=== PATIENT | male | born 1985 | race Caucasian/White ===

== ENCOUNTER 2018-02-01 14:00 | Inpatient (IN) ==
[2018-02-01] MEDS ORDERED: levETIRAcetam 1000mg/100mL Inj 100 ML IV.SIG ONE (14:03)
[2018-02-01] MEDS ORDERED: Sod Chloride 0.9% Inj 1,000 ML IV.SIG ONE (14:03)
--- NOTE | 2018-02-01 14:21 | XR ---
EXAM DATE: 02/01/2018 2:18 PM EDT AGE/SEX: 32 years / Male INDICATIONS: Seizure. CLINICAL DATA: This is the patient's initial encounter. Patient reports that signs and symptoms have been present for 1 day and indicates a pain score of Nonresponsive. MEDICAL/SURGICAL HISTORY: Seizures. None. COMPARISON: No prior exams available for comparison. FINDINGS: Study is blurred by motion artifact. A single AP view of the chest demonstrates the lungs to be symme trically aerated without evidence of mass, infiltrate or effusion. The cardiomediastinal contours ar e unremarkable. Osseous structures are intact. CONCLUSION: 1. Exam degraded by motion artifact. 2. No gross abnormality. Electronically signed by: Hugo Love MD 02/01/2018 2:20 PM EDT
[2018-02-01] MEDS ORDERED: Etomidate Inj 40 MG/20 ML Vial IV.PUSH ONE (14:31)
[2018-02-01] MEDS ORDERED: Succinylcholine Inj 200 MG/10 ML Vial ONE (14:31)
[2018-02-01] MEDS ORDERED: Propofol Inj 500 MG/50 ML Vial ONE (14:32)
[2018-02-01 14:35] LABS: Baso % (Auto) 0.3 % (0.0-2.0); Eos # (Auto) 0.1 th/mm3 (0.0-0.4); Eos % (Auto) 1.3 % (0.0-4.0); Hematocrit 41.2 % (39.0-51.0); Hemoglobin 13.2 gm/dL (13.0-17.0); Lymph # (Auto) 2.6 th/mm3 (1.0-4.8); Lymph % (Auto) 30.8 % (9.0-44.0); Mean Corpuscular HGB Conc 32.1 % (32.0-36.0); Mean Corpuscular Hemoglobin 29.2 pg (27.0-34.0); Mean Corpuscular Volume 90.8 fL (80.0-100.0); Mean Platelet Volume 7.8 fL (7.0-11.0); Mono # (Auto) 0.5 th/mm3 (0.0-0.9); Mono % (Auto) 6.3 % (0.0-8.0); Neut # (Auto) 5.3 th/mm3 (1.8-7.7); Neut % (Auto) 61.3 % (16.0-70.0); Platelet Count 293 th/mm3 (150-450); Red Blood Count 4.54 mil/mm3 (4.50-5.90); Red Cell Distribution Width 13.4 % (11.6-17.2); White Blood Count 8.6 th/mm3 (4.0-11.0)
[2018-02-01] MEDS ORDERED: Acetaminophen 325 MG Tablet PO PRN (14:46)
[2018-02-01] MEDS ORDERED: Bisacodyl 10 MG Supp RECTAL PRN (14:46)
--- NOTE | 2018-02-01 14:54 | ED ---
HPI General Chief complaint: Seizure Stated complaint: Poss seizure Time Seen by Provider: 02/01/18 14:02 Source: family, EMS, RN notes reviewed and old records reviewed History of Present Illness HPI narrative: 32yM presenting with seizure. The patient reportedly has a history of seizures, had 2 seizures while he was at work today. EMS gave the patient 2 mg of versed IV x 2 doses but he was still non-verbal, altered, with subtle shaking of all extremities on arrival. The patient required multiple additional doses of IV ativan and was intubated for airway protection; I was unable to elicit any information from him. The patient's sister says that the patient is currently taking Klonopin for seizures, is frequently non-compliant with meds, and was admitted within the past month to [facility] in [place] for seizures. Patient's last name is misspelled in the chart; his name is Jerman Beal, ; previous records show that he was on Dilantin in 2017. Related Data Allergies Allergy/AdvReac Type Severity Reaction Status Date / Time No Allergy Information Allergy Unverified 02/01/18 14:03 Available Review of Systems ROS Unobtainable ROS Unobtainable: unobtainable due to mental status PMFSH History History Provided By: Family Member and Medical Record Medical History Medical History Epilepsia (Acute) TBI (traumatic brain injury) (Acute) Social History Social History Substance History: Unable to Obtain Smoking Status: Cognitive impairment How Often Do You Have a Drink Containing Alcohol: Unable to Obtain Recent Out of Country Travel within the Last 8 Weeks: No Exam Narrative Exam Narrative: Actively seizing on arrival Pupils 2 mm bilaterally, left-sided gaze preference Tachy, regular Snoring respirations Abdomen soft and non-tender No extremity trauma GCS 10 ([id number]), non-verbal, does not follow commands Procedures Intubation Time Out Performed: Yes Sedative: etomidate Mg Given: 20 Paralytic: succinylcholine Mg Given: 100 Laryngoscope: other (C MAC) ET Tube Size: 8 ET Tube Uncuffed: Yes Tube Secured Depth (cm): 24 Tube Secured Location: teeth Tube Placement Confirmation: visualized tube passing through cords, equal breath sounds bilaterally, no breath sounds over epigastrium and confirmation by capnometry Patient Tolerated Procedure: well and no complications Course Initial Documented Vital Signs Temperature 99.5 F 02/01/18 14:05 Pulse Rate 105 H 02/01/18 14:05 Respiratory Rate 16 02/01/18 14:05 Blood Pressure 133/60 02/01/18 14:05 Pulse Oximetry 99 02/01/18 14:05 Last Documented Vital Signs Temperature 99.5 F 02/01/18 14:05 Pulse Rate 100 H 02/01/18 15:05 Respiratory Rate 21 02/01/18 15:05 Blood Pressure 186/91 H 02/01/18 15:05 Pulse Oximetry 100 02/01/18 15:05 Critical Care Time Critical Care Time: Yes Total Critical Care Time: 41 Attestation: Total critical care time 41 minutes. This includes examining and stabilizing the patient, gathering a history from a source other than the patient (i.e., chart review, EMS, family), formulating a differential diagnosis , ordering and interpreting laboratory tests and EKG, ordering and interpreting radiology tests, discussing the patient's care with other providers (neurology, critical care), management of refractory seizures, management of ventilator and sedation, re-evaluation at frequent intervals, and documentation. Amount of time is separate from teaching, counseling the patient and/or family, and exclusive of procedures. Medical Decision Making MDM Narrative Medical decision making narrative: Assessment: 32yM presenting with status epilepticus Plan: Patient required intubation for airway protection and acute hypoxic respiratory failure secondary to status epilepticus Propofol for sedation, also given 1 gm keppra IV CTH Labs, including AED levels Case discussed with Dr. John of neurology and Dr. Guan of [facility] [place] Medical Screen Exam Complete: Yes Emergency Medical Condition: Yes Differential Diagnosis Differential Diagnosis: Differential diagnosis includes, but is not limited to: status epilepticus, withdrawal, ICH, electrolyte abnormality, dehydration, rhabdomyolysis Lab Data Lab results reviewed: Yes I reviewed the patient's lab results. Result diagrams: 02/01/18 14:15 02/01/18 14:15 Lab Results 02/01/18 02/01/18 Range/Units 14:15 14:15 WBC 8.6 (4.0-11.0) th/mm3 RBC 4.54 (4.50-5.90) mil/mm3 Hgb 13.2 (13.0-17.0) gm/dL Hct 41.2 (39.0-51.0) % MCV 90.8 (80.0-100.0) fL MCH 29.2 (27.0-34.0) pg MCHC 32.1 (32.0-36.0) % RDW 13.4 (11.6-17.2) % Plt Count 293 (150-450) th/mm3 MPV 7.8 (7.0-11.0) fL Neut % (Auto) 61.3 (16.0-70.0) % Lymph % (Auto) 30.8 (9.0-44.0) % [place] % (Auto) 6.3 (0.0-8.0) % Eos % (Auto) 1.3 (0.0-4.0) % Baso % (Auto) 0.3 (0.0-2.0) % Neut # (Auto) 5.3 (1.8-7.7) th/mm3 Lymph # (Auto) 2.6 (1.0-4.8) th/mm3 [place] # (Auto) 0.5 (0.0-0.9) th/mm3 Eos # (Auto) 0.1 (0.0-0.4) th/mm3 Baso # (Auto) 0.0 (0.0-0.2) th/mm3 WBC Differential . Differential Comment Auto diff final Sodium 143 (136-145) meq/L Potassium 3.6 (3.5-5.1) meq/L Chloride 107 (98-107) meq/L Carbon Dioxide 17.0 L (21.0-32.0) meq/L Anion Gap 19 H (5-15) meq/L BUN 12 (7-18) mg/dL Creatinine 1.39 H (0.60-1.30) mg/dL Estimated GFR 59 L (>89) mL/min Random Glucose 92 (74-106) mg/dL Calcium 8.6 (8.5-10.1) mg/dL AST 9 L (15-37) U/L ALT 14 (12-78) U/L Albumin 3.7 (3.4-5.0) g/dL Imaging Data Radiologist's impression: Chest X-Ray 02/01/18 14:03 CONCLUSION: 1. Exam degraded by motion artifact. 2. No gross abnormality. Chest X-Ray 02/01/18 14:38 CONCLUSION: Clear lungs. ECG Data Attestation: I personally reviewed and interpreted this ECG as follows: Interpretation: Rate: 97 BPM Rhythm: Sinus Crozier: Normal Intervals: Normal intervals, no blocks, QTc 395 ms Q waves: None T waves: Upright, no inversions ST segments: No elevations or depressions Impression: Non-specific EKG, no previous EKG available for comparison. Discharge Plan Discharge Disposition Patient Disposition: 30 Still Patient Discharge Condition Condition: Critical Discharge Details Diagnosis: Status epilepticus, Acute respiratory failure Physicians Team ED Provider: Claudia Marrero Primary Care Provider: UNKNOWN, Discharge Interventions Interventions: Vital Signs Last Done: 02/01/18 14:27 Status ED Status: With Doctor
[2018-02-01 14:57] LABS: Alanine Aminotransferase 14 U/L (12-78); Albumin 3.7 g/dL (3.4-5.0); Anion Gap 19 meq/L (5-15); Aspartate Aminotransferase 9 U/L (15-37); Blood Urea Nitrogen 12 mg/dL (7-18); Calcium 8.6 mg/dL (8.5-10.1); Chloride 107 meq/L (98-107); Glomerular Filtration Rate 59 mL/min (>89); Glucose,Random 92 mg/dL (74-106); Potassium 3.6 meq/L (3.5-5.1); Sodium 143 meq/L (136-145)
[2018-02-01 14:59] LABS: Alkaline Phosphatase 81 U/L (45-117); Total Protein 7.2 g/dL (6.4-8.2)
[2018-02-01] MEDS ORDERED: Midazolam Inj 5 MG/ML 1 ML Vial ONE (15:02)
[2018-02-01] MEDS ORDERED: Midazolam 50 MG/50 ML Inj 50 MG/50 ML BAG IV.CONT ONE (15:07)
--- NOTE | 2018-02-01 15:18 | XR ---
EXAM DATE: 02/01/2018 3:07 PM EDT AGE/SEX: 32 years / Male INDICATIONS: Respiratory failure. Possible seizure. CLINICAL DATA: This is the patient's initial encounter. Patient reports that signs and symptoms have been present for 1 day and indicates a pain score of Nonresponsive. MEDICAL/SURGICAL HISTORY: . Seizures None. [place] [facility] [place]. . FINDINGS: A single AP view of the chest demonstrates an endotracheal tube with the tip 2 cm from the sil. Na sogastric tube is coiled in the stomach. Lungs are clear. No effusions. Heart is normal in size. Bony structures are unremarkable. CONCLUSION: Clear lungs. Electronically signed by: Hugo Love MD 02/01/2018 3:17 PM EDT
[2018-02-01] MEDS ORDERED: Succinylcholine Inj 100 MG/5 ML Syringe IV.PUSH ONE (15:22)
[2018-02-01] MEDS ORDERED: Etomidate Inj 20 MG/10 ML Ampul IV.PUSH ONE (15:22)
--- NOTE | 2018-02-01 15:23 | P.HPCC ---
History of Present Illness Primary Care Physician: UNKNOWN Chief Complaint: Status epilepticus History of Present Illness: Patient is a 32-year-old male with seizure disorder noncompliant to medication who presented to emergency department in status epilepticus. Apparently he had 2 seizures at work, EMS was called they gave a total of 4 mg IV Versed with no response. Presented to the ED altered still seizing. Received total 4 mg IV Ativan in the emergency department without response. Patient was intubated for airway protection and status epilepticus. Postintubation was loaded with Keppra and critical care medicine was consulted. Patient was also placed on propofol infusion. He has a history of noncompliance previously had been on Dilantin currently only on Klonopin per history from his sister ED obtained. I am also told that patient was admitted to a [facility] for approximately 1 week and this was a week ago for same diagnosis of uncontrolled seizures I evaluated the patient in the emergency department. He continues to have tremulous shaking movements of the lower extremities somewhat purposefully with the right upper extremity. I bolused 50 mg IV propofol followed by 5 mg of IV Versed for control of seizures and ventilator synchrony. I have ordered loading dose of 1 g IV fosphenytoin and then will continue 100 mg IV every 8 hours. Neurology consult had been requested as well as stat EEG. Also will get a CT of the head with no contrast. Urine drug screen is pending at this time - Diagnosis (1) Status epilepticus (2) Acute respiratory failure (3) JOAQUIN (acute kidney injury) (4) Seizure disorder Review of Systems unobtainable due to endotracheal tube, unobtainable due to mental condition PMFSH - History History Provided By: Family Member, Medical Record - Medical / Surgical Hx Neg / Unobtainable Medical Problems Denied: Unable to Obtain - Medical History Medical History: Medical History (Last Reviewed 02/01/18 @ 14:49 by Claudia Marrero DO) Epilepsia TBI (traumatic brain injury) - Tobacco History Smoking Status: Cognitive impairment - Alcohol History How Often Do You Have a Drink Containing Alcohol: Unable to Obtain - Substance Use History Substance History: Unable to Obtain - Travel History Recent Travel Out of the Country Within the Last 8 Weeks: No - Immunization History Tetanus Immunization: Unable to Assess Hx Influenza Vaccine This Season: Unable to Assess Medications and Allergies Active Medications: Active Medications Acetaminophen (Tylenol) 650 mg PO Q6H PRN PRN Reason: PAIN 1-10 AND/OR FEVER >101F Al Hydroxide/Mg Hydroxide (Milk Of Magnesia Liq) 30 ml PO Q12H PRN PRN Reason: Mild Constipation Albuterol (Duoneb Neb (Prn)) 1 ampul NEB Q2HR NEB PRN PRN Reason: WHEEZING Bisacodyl (Dulcolax Supp) 10 mg RECTAL DAILY PRN PRN Reason: SEVERE CONSITIPATION Chlorhexidine Gluconate (Peridex 0.12% Oral Kit) 15 ml OROPHARYNG BID@0800, 2000 [facility] Chlorhexidine Gluconate (Chlorhexidine 2% Cloth) 3 pack TOPICAL DAILY@0400 PRN PRN Reason: Extra cloth needed Stop: 02/07/18 03:59 Chlorhexidine Gluconate (Chlorhexidine 2% Cloth) 3 pack TOPICAL DAILY@0400 [facility] Stop: 02/07/18 03:59 Enoxaparin Sodium (Lovenox Inj) 40 mg SQ Q24H [facility] Famotidine (Pepcid Pf Inj) 20 mg IV.PUSH Q12HR [facility] Propofol (Diprivan 1000 Mg/100 Ml Inj) 1,000 mg in 100 mls @ 2.585 mls/hr IV.CONT TITRATE PRN; Protocol PRN Reason: Per Protocol Potassium Chloride/Sodium Chloride (Ns + Kcl 20 Meq Inj) 1,000 mls @ 100 mls/ hr IV.CONT .Q10H [facility] Fosphenytoin Sodium 1,000 mgpe (/ Sodium Chloride) 70 mls @ 280 mls/hr IV.SIG ONCE ONE Stop: 02/01/18 15:44 Fosphenytoin Sodium 100 mgpe/ (Sodium Chloride) 52 mls @ 208 mls/hr IV.SIG Q8HR [facility] Lactulose (Lactulose Liq) 30 ml PO DAILY PRN PRN Reason: SEVERE CONSITIPATION Lorazepam (Ativan Inj) 2 mg IV.PUSH Q1H PRN PRN Reason: SEIZURES Senna/Docusate Sodium (Cynthia-Colace) 1 tab PO BID [facility] Sennosides (Senokot) 17.2 mg PO Q12H PRN PRN Reason: Moderate Constipation Sodium Chloride (Ns Flush) 2 ml IV.FLUSH BID K[facility]AR Sodium Chloride (Ns Flush) 2 ml IV.FLUSH PRN PRN PRN Reason: FLUSH AFTER USING IV ACCESS Allergies Allergy/AdvReac Type Severity Reaction Status Date / Time No Allergy Information Allergy Unverified 02/01/18 14:03 Available Results - Labs CBC & Chem 7: 02/01/18 14:15 02/01/18 14:15 Labs: Short CBC 02/01/18 Range/Units 14:15 WBC 8.6 (4.0-11.0) th/mm3 Hgb 13.2 (13.0-17.0) gm/dL Hct 41.2 (39.0-51.0) % Plt Count 293 (150-450) th/mm3 BMP 02/01/18 14:15 Sodium 143 Potassium 3.6 Chloride 107 Carbon Dioxide 17.0 L BUN 12 Creatinine 1.39 H Calcium 8.6 Liver Function 02/01/18 Range/Units 14:15 AST 9 L (15-37) U/L ALT 14 (12-78) U/L Albumin 3.7 (3.4-5.0) g/dL - Imaging Impressions Chest X-Ray 02/01/18 14:03 CONCLUSION: 1. Exam degraded by motion artifact. 2. No gross abnormality. Chest X-Ray 02/01/18 14:38 CONCLUSION: Clear lungs. Exam Vital signs: Vital Signs 02/01/18 14:05 02/01/18 14:27 Temperature 99.5 F Pulse Rate 105 H Respiratory Rate 16 13 Blood Pressure 133/60 Pulse Oximetry 99 100 Intake & Output 01/31/18 02/01/18 02/01/18 18:59 06:59 18:59 Intake Total 100 / 100 Balance 100 / 100 Weight 86.183 kg Intake: IV 100 / 100 Keppra 1000 mg/100 mL Premix 100 / 100 100 ML @ 400 mls/hr IV.SIG ONCE ONE Rx#:[id number] Narrative: GEN: 32-year-old male critically ill intubated still having tremulous movements of the lower extremities HEAD, EYES, EARS, NOSE, AND THROAT:Pupils are 4 mm reactive. Oral cavity is dry. Orotracheally intubated NECK: Supple. No JVD LUNGS: Air entry equal bilaterally no wheezes or crackles HEART: S1 and S2 normal, no murmurs ABDOMEN: Soft. No hepatosplenomegaly EXTREMITIES: No pedal edema. Lower extremity has some erythematous rashes at the dorsum of the foot NEUROLOGIC: Intubated sedated with propofol. JOSEPHINE. Intermittently having tremulous movements of the lower extremities. Purposefully moves the right extremity. Septic Shock Reassessment Septic shock perfusion: reassessment completed Caprini VTE Risk Assessment Caprini VTE Risk Assessment: Moderate/High Risk (score >= 2) Caprini Risk Assessment Model: Point Value = 1 Point Value = 2 Point Value = 3 Point Value = 5 Age 41-60 Minor surgery BMI > 25 kg/m2 Swollen legs Varicose veins or History of unexplained or recurrent spontaneous Oral contraceptives or hormone replacement Sepsis (< 1 month) Serious lung disease, including pneumonia (< 1 month) Abnormal pulmonary function Acute myocardial infarction Congestive heart failure (< 1 month) History of inflammatory bowel disease Medical patient at bed rest Age 61-74 Arthroscopic surgery Major open surgery (> 45 min) Laparoscopic surgery (> 45 min) Malignancy Confined to bed (> 72 hours) Immobilizing plaster cast Central venous access Age >= 75 History of VTE Family history of VTE Factor V Leiden Prothrombin 52626A Lupus anticoagulant Anticardiolipin antibodies Elevated serum homocysteine Heparin-induced thrombocytopenia Other congenital or acquired thrombophilia Stroke (< 1 month) Elective arthroplasty Hip, pelvis, or leg fracture Acute spinal cord injury (< 1 month) Prophylaxis Regimen: Total Risk Factor Score Risk Level Prophylaxis Regimen 0-1 Low Early ambulation 2 Moderate Order ONE of the following: *Sequential Compression Device (SCD) *Heparin 5000 units SQ BID 3-4 Higher Order ONE of the following medications: *Heparin 5000 units SQ TID *Enoxaparin/Lovenox 40 mg SQ daily (WT < 150 kg, CrCl > 30 mL/min) *Enoxaparin/Lovenox 30 mg SQ daily (WT < 150 kg, CrCl > 10-29 mL/min) *Enoxaparin/Lovenox 30 mg SQ BID (WT < 150 kg, CrCl > 30 mL/min) AND/OR *Sequential Compression Device (SCD) 5 or more Highest Order ONE of the following medications: *Heparin 5000 units SQ TID (Preferred with Epidurals) *Enoxaparin/Lovenox 40 mg SQ daily (WT < 150 kg, CrCl > 30 mL/min) *Enoxaparin/Lovenox 30 mg SQ daily (WT < 150 kg, CrCl > 10-29 mL/min) *Enoxaparin/Lovenox 30 mg SQ BID (WT < 150 kg, CrCl > 30 mL/min) AND *Sequential Compression Device (SCD) Assessment and Plan - Problem List (1) Status epilepticus Code(s): G40.901 - Epilepsy, unspecified, not intractable, with status epilepticus Status: Acute (2) Acute respiratory failure Code(s): J96.00 - Acute respiratory failure, unspecified whether with hypoxia or hypercapnia Status: Acute (3) JOAQUNI (acute kidney injury) Code(s): N17.9 - Acute kidney failure, unspecified Status: Acute (4) Seizure disorder Code(s): G40.909 - Epilepsy, unspecified, not intractable, without status epilepticus Status: Chronic - Assessment and Plan Plan: NEURO: Status epilepticus Seizure disorder Noncompliance -Propofol and Versed for sedation and ventilator synchrony -Ativan 2 mg IV q. one hour as needed for seizures -Given Keppra 1 g in the ED, load with fosphenytoin 1 g IV 1 -Continue fosphenytoin 100 mg IV every 8 hours, check Dilantin level in a.m. -Stat EEG, neurology consult -CT of the head, check magnesium level, UDS RESP: Acute respiratory failure -PRVC/AC, ventilator bundle, head of the bed elevation -Ventilator bundle -DuoNeb every 2 hours as needed -SBT when appropriate, and seizures are controlled CV: -Normal saline IV fluids 84 ml per hour. Give additional 1 L normal saline bolus -Monitor blood pressure heart rate GI: -N.p.o., IV famotidine -Start tube feeds with Jevity : Acute kidney injury -Monitor renal function closely. Place El catheter. -Monitor creatinine after adequate hydration ID: -No Antibiotics at this time -Blood urine and sputum cultures if indicated only HEME: -Monitor CBC, coags ENDO: -Electrolyte replacement per protocol -Sliding scale insulin if needed PROPH: -Bilateral lower extremity SCDs. Lovenox/famotidine LINES: -Utilize peripheral IVs, central line if needed CC time 45 min Patient is currently critically ill remains in status epilepticus despite intubation and being on high-dose propofol. Loading dose of fosphenytoin additional propofol and Versed push and continued Versed infusion ordered. Await stat EEG and neurology consult. Code Status: Full Discussed Condition With: Dr. Marrero
[2018-02-01] MEDS ORDERED: Fosphenytoin Inj 1,000 MGPE in Sodium Chlor 0.9% Inj 50 ML IV.SIG ONE (15:30)
[2018-02-01 15:38] LABS: ABG Base Excess -1.2 mmol/L (-2-2); ABG PCO2 41 mmHg (38-42); ABG PO2 137 mmHg (61-120)
[2018-02-01 15:41] LABS: Creatine Kinase 72 U/L (39-308)
[2018-02-01] MEDS ORDERED: Sod Chloride 0.9% Inj 1,000 ML IV.SIG SCH (15:45)
--- NOTE | 2018-02-01 15:58 | CT ---
EXAM DATE: 02/01/2018 3:51 PM EDT AGE/SEX: 32 years / Male INDICATIONS: Seizure today x 2 CLINICAL DATA: This is the patient's initial encounter. Patient reports that signs and symptoms have been present for 1 day and indicates a pain score of Nonresponsive. MEDICAL/SURGICAL HISTORY: . traumatic brain injury, epilepsy None. RADIATION DOSE: 56.37 CTDI (mGy) COMPARISON: No prior exams available for comparison. TECHNIQUE: CT of the head without contrast. Using automated exposure control and adjustment of the mA and/or kV according to patient size, radiation dose was kept as low as reasonably achievable to ob tain optimal diagnostic quality images. DICOM format image data is available electronically for revi ew and comparison. FINDINGS: Cerebrum: There is a focal area of decreased attenuation involving the subinsular cortex on the righ t. The remaining brain parenchyma shows normal attenuation. The ventricles are normal for age. No ev idence of midline shift, mass lesion, hemorrhage or acute infarction. No extraaxial fluid collection s are seen. Posterior Fossa: The cerebellum and brainstem are intact. The 4th ventricle is midline. The cerebe llopontine angle is unremarkable. Extracranial: The visualized portion of the orbits is intact. Skull: The calvaria is intact. No evidence of skull fracture. CONCLUSION: 1. Small area of decreased density involving the subinsular cortex on the right. Exact etiology is u ncertain. It is poorly characterized on this exam. I cannot completely exclude an area of infarction. MRI with contrast is suggested to further assess. . Electronically signed by: Hugo Love MD 02/01/2018 3:57 PM EDT
[2018-02-01 16:02] LABS: Amphetamine Screen,Urine Neg (Neg); Barbiturate Screen,Urine Neg (Neg); Cannabinoid Screen,Urine Pos (Neg); Cocaine Screen,Urine Neg (Neg)
[2018-02-01 16:03] LABS: Opiate Screen,Urine Neg (Neg)
[2018-02-01 16:12] LABS: Amorphous Sediment,Urine Moderate /hpf; Bilirubin,Urine Negative (Negative); Clarity,Urine Cloudy (Clear); Color,Urine Yellow (Yellw/Straw); Glucose,Urine (UA) Negative (Negative); Leukocyte Esterase,Urine Negative (Negative); Mucus,Urine Few /lpf (Occasional); Nitrite,Urine Negative (Negative); Specific Gravity,Urine 1.018 (1.002-1.035); Squamous Epithelial Cell,Urine <1 /hpf (0-5)
--- NOTE | 2018-02-01 16:20 | P.CONNEU ---
History of Present Illness Service: NEUROLOGY Consult date: 02/01/18 Reason for Consult: STATUS EPILEPSY Primary Care Provider: UNKNOWN Chief Complaint: Status epilepticus History of Present Illness: IT IS A PRIVILEGE TO PROVIDE A NEUROLOGY CONSULTATION FOR THIS 32 YO GENTELMAN BROUGHT IN BY EMS AFTER PT WAS WITNSSED HAVING GTC CONVULSION SINCE 145PM. PT RECEIVED ATIVAN 2X IN THE ER AT 2PM THEN 210PM, INTUBATED SEDATED AT 230PM PT REMAIED SEDATED THOUGH INTERMITTENT JERKING MOVEMENT NOTED Review of Systems unobtainable due to mental status PMFSH - History History Provided By: Family Member, Medical Record - Medical / Surgical Hx Neg / Unobtainable Medical Problems Denied: Unable to Obtain - Medical History Medical History: Medical History (Last Reviewed 02/01/18 @ 14:49 by Claudia Marrero DO) Epilepsia TBI (traumatic brain injury) - Tobacco History Smoking Status: Cognitive impairment - Alcohol History How Often Do You Have a Drink Containing Alcohol: Unable to Obtain - Substance Use History Substance History: Unable to Obtain - Travel History Recent Travel Out of the Country Within the Last 8 Weeks: No - Immunization History Tetanus Immunization: Unable to Assess Hx Influenza Vaccine This Season: Unable to Assess Medications and Allergies Active Medications: Active Medications Acetaminophen (Tylenol) 650 mg PO Q6H PRN PRN Reason: PAIN 1-10 AND/OR FEVER >101F Al Hydroxide/Mg Hydroxide (Milk Of Magnisma[place] Liq) 30 ml PO Q12H PRN PRN Reason: Mild Constipation Albuterol (Duoneb Neb (Prn)) 1 ampul NEB Q2HR NEB PRN PRN Reason: WHEEZING Bisacodyl (Dulcolax Supp) 10 mg RECTAL DAILY PRN PRN Reason: SEVERE CONSITIPATION Chlorhexidine Gluconate (Peridex 0.12% Oral Kit) 15 ml OROPHARYNG BID@0800, 2000 [facility] Chlorhexidine Gluconate (Chlorhexidine 2% Cloth) 3 pack TOPICAL DAILY@0400 PRN PRN Reason: Extra cloth needed Stop: 02/07/18 03:59 Chlorhexidine Gluconate (Chlorhexidine 2% Cloth) 3 pack TOPICAL DAILY@0400 [facility] Stop: 02/07/18 03:59 Enoxaparin Sodium (Lovenox Inj) 40 mg SQ Q24H [facility] Famotidine (Pepcid Pf Inj) 20 mg IV.PUSH Q12HR [facility] Propofol (Diprivan 1000 Mg/100 Ml Inj) 1,000 mg in 100 mls @ 2.585 mls/hr IV.CONT TITRATE PRN; Protocol PRN Reason: Per Protocol Potassium Chloride/Sodium Chloride (Ns + Kcl 20 Meq Inj) 1,000 mls @ 100 mls/ hr IV.CONT .Q10H [facility] Fosphenytoin Sodium 100 mgpe/ (Sodium Chloride) 52 mls @ 208 mls/hr IV.SIG Q8HR [facility] Lactulose (Lactulose Liq) 30 ml PO DAILY PRN PRN Reason: SEVERE CONSITIPATION Lorazepam (Ativan Inj) 2 mg IV.PUSH Q1H PRN PRN Reason: SEIZURES Senna/Docusate Sodium (Cynthia-Colace) 1 tab PO BID [facility] Sennosides (Senokot) 17.2 mg PO Q12H PRN PRN Reason: Moderate Constipation Sodium Chloride (Ns Flush) 2 ml IV.FLUSH BID [facility] Sodium Chloride (Ns Flush) 2 ml IV.FLUSH PRN PRN PRN Reason: FLUSH AFTER USING IV ACCESS Allergies Allergy/AdvReac Type Severity Reaction Status Date / Time No Allergy Information Allergy Unverified 02/01/18 14:03 Available Exam Vital signs: Vital Signs 02/01/18 14:05 02/01/18 14:27 02/01/18 14:30 Temperature 99.5 F Pulse Rate 105 H 116 H Respiratory Rate 16 13 Blood Pressure 133/60 131/76 Pulse Oximetry 99 100 2 L 02/01/18 14:56 02/01/18 15:05 02/01/18 15:23 Temperature Pulse Rate 100 H 89 Respiratory Rate 18 21 23 Blood Pressure 186/91 H 128/68 Pulse Oximetry 100 100 100 Intake & Output 01/31/18 02/01/18 02/01/18 18:59 06:59 18:59 Intake Total 100 / 100 Balance 100 / 100 Weight 86.183 kg Intake: IV 100 / 100 Keppra 1000 mg/100 mL Premix 100 / 100 100 ML @ 400 mls/hr IV.SIG ONCE ONE Rx#:[id number] - Constitutional severe distress, obtunded Comments: INTUBATED AND SEDATED - Routine HEENT Exam Head: Present: normocephalic, atraumatic Eye: Present: EOMI, PERRL ENT: Present: mucous membranes moist - Routine Neck Exam Present: supple Comments: INTUBATED - Routine Respiratory Exam Present: patient mechanically ventilated - Routine Cardiovascular Exam Present: S1, S2. Absent: irregular rhythm - Routine Extremities Exam Absent: cyanosis - Routine Skin Exam Present: intact - Routine Neurological Exam MENTAL STATUS + SEDATED NO VERBAL APATHY APRAXIA CN II-XII + GRIMASE PRL GAG+ MOTOR TONE RIGID RIGHT > LEFT INTERMITTENT JERK+ DTR 2+ PLANTER EXTENSOR B/L SENSORY- WITHDREW CEREBELLAR NOT COOPERATED Results - Labs CBC & Chem 7: 02/01/18 14:15 02/01/18 14:15 Labs: Laboratory Results - last 24 hr 02/01/18 02/01/18 02/01/18 14:15 14:15 14:40 WBC 8.6 RBC 4.54 Hgb 13.2 Hct 41.2 MCV 90.8 MCH 29.2 MCHC 32.1 RDW 13.4 Plt Count 293 MPV 7.8 Neut % (Auto) 61.3 Lymph % (Auto) 30.8 [place] % (Auto) 6.3 Eos % (Auto) 1.3 Baso % (Auto) 0.3 Neut # (Auto) 5.3 Lymph # (Auto) 2.6 [place] # (Auto) 0.5 Eos # (Auto) 0.1 Baso # (Auto) 0.0 WBC Differential . Differential Comment Auto diff final Puncture Site Patient Temperature O2 Saturation ABG pH ABG pCO2 ABG pO2 ABG HCO3 ABG O2 Content ABG Base Excess ABG Methemoglobin Javier Test Hemoglobin Carboxyhemoglobin O2 Delivery Device Vent Setting Inspired O2 Critical Value Sodium 143 Potassium 3.6 Chloride 107 Carbon Dioxide 17.0 L Anion Gap 19 H BUN 12 Creatinine 1.39 H Estimated GFR 59 L Random Glucose 92 Calcium 8.6 Total Bilirubin 0.3 AST 9 L ALT 14 Alkaline Phosphatase 81 Total Creatine Kinase 72 Total Protein 7.2 Albumin 3.7 Urine Opiates Screen Neg Ur Barbiturates Screen Neg Phenytoin Less than 0.4 L Carbamazepine Less than 0.5 L Ur Amphetamines Screen Neg Phenobarbital Less than 2.1 L U Benzodiazepines Scrn Pos H Urine Cocaine Screen Neg U Cannabinoids Screen Pos H 02/01/18 15:30 WBC RBC Hgb Hct MCV MCH MCHC RDW Plt Count MPV Neut % (Auto) Lymph % (Auto) [place] % (Auto) Eos % (Auto) Baso % (Auto) Neut # (Auto) Lymph # (Auto) [place] # (Auto) Eos # (Auto) Baso # (Auto) WBC Differential Differential Comment Puncture Site Right radial Patient Temperature 98.6 O2 Saturation 97 ABG pH 7.37 L ABG pCO2 41 ABG pO2 137 H ABG HCO3 23 ABG O2 Content 16.9 ABG Base Excess -1.2 ABG Methemoglobin 0.8 Javier Test Present Hemoglobin 12.3 Carboxyhemoglobin 1.5 O2 Delivery Device Ventilator Vent Setting Ac16/550/+5 Inspired O2 40 Critical Value No Sodium Potassium Chloride Carbon Dioxide Anion Gap BUN Creatinine Estimated GFR Random Glucose Calcium Total Bilirubin AST ALT Alkaline Phosphatase Total Creatine Kinase Total Protein Albumin Urine Opiates Screen Ur Barbiturates Screen Phenytoin Carbamazepine Ur Amphetamines Screen Phenobarbital U Benzodiazepines Scrn Urine Cocaine Screen U Cannabinoids Screen - Imaging Impressions Chest X-Ray 02/01/18 14:03 CONCLUSION: 1. Exam degraded by motion artifact. 2. No gross abnormality. Head CT 02/01/18 14:03 CONCLUSION: 1. Small area of decreased density involving the subinsular cortex on the right. Exact etiology is uncertain. It is poorly characterized on this exam. I cannot completely exclude an area of infarction. MRI with contrast is suggested to further assess. . Chest X-Ray 02/01/18 14:38 CONCLUSION: Clear lungs. Review/Management - Diagnosis (1) Hypocapnemia Code(s): E87.8 - Other disorders of electrolyte and fluid balance, not elsewhere classified Status: Acute Current Visit: Yes (2) Dehydration, mild Code(s): E86.0 - Dehydration Status: Acute Current Visit: Yes - Review/Management Plan: 1. ADD KEPPRA 1000MG IV THEN 500MG IV Q 12HOUR 2. EEG 3. BRAIN MRI 2MM CUT AFTER EXTUBATED 4. SZ PRECAUTION 5. NO DRIVING IF IMPROVED 6. D/W ER , WILL D/W PMD, FOLLOW DR. SANCEHZ THANK YOU VERY MUCH FOR THE COURTESY OF THIS VERY KINDLY REFERRAL
[2018-02-01] MEDS: Oral Hygiene Kit OROPHARYNG SCH (16:49)
[2018-02-01] MEDS: Enoxaparin Inj 40 MG/0.4 ML Syringe SQ SCH (16:49)
[2018-02-01] MEDS: Propofol 1000 mg/100 ml Inj 1,000 MG/100 ML BOTTLE IV.CONT PRN ×3 (16:57→23:16)
--- NOTE | 2018-02-01 19:56 | P.CONNEU ---
History of Present Illness Service: EEG Consult date: 02/01/18 Reason for Consult: STATUS EPILEPSY Primary Care Provider: UNKNOWN Chief Complaint: Status epilepticus History of Present Illness: EEG REPORT NAME IVONNE SIMMONS?) 1985 AGE 32M MEDICATION ATIVAN VERSED HX SZ 45MIN BEF INTUBATED EEG DESCRIPTION THIS IS A 20 CHANNEL EEG RECORDING. THE PREDOMINANT RHYTHM SEEN DURING THIS RECORDING IS 12HZ BILATERAL HEMISPHERE, WITH INTERMITTENT SPIKE AND SLOW WAVES TO THE LEFT ANTERIOR TEMPORAL REGION HYPERVENTILATION NOT DONE SINCE PT IS INTUBATED PHOTIC STIMULATION DOES NOT ALTER THIS RECORDING. IPRESSION THIS IS AN ABNORMAL EEG BECAUSE OF THE SHARP AND SPIKE ACTIVITIES IN THE LEFT ANTERIOR TEMPORAL REGION, SUGGESTED SEIZURE POTENTIALITY IN THIS REGION AND POSSIBLY STRUCTURAL PATHOLOGY. [facility] - History History Provided By: Family Member, Medical Record - Medical / Surgical Hx Neg / Unobtainable Medical Problems Denied: Unable to Obtain - Medical History Medical History: Medical History (Last Reviewed 02/01/18 @ 14:49 by Claudia Marrero DO) Epilepsia TBI (traumatic brain injury) - Tobacco History Smoking Status: Former smoker Tobacco Type: Cigarettes - Alcohol History How Often Do You Have a Drink Containing Alcohol: Unable to Obtain - Substance Use History Substance History: Unable to Obtain - Travel History Recent Travel Out of the Country Within the Last 8 Weeks: No - Immunization History Tetanus Immunization: Unable to Assess Hx Influenza Vaccine This Season: Unable to Assess Medications and Allergies Active Medications: Active Medications Acetaminophen (Tylenol) 650 mg PO Q6H PRN PRN Reason: PAIN 1-10 AND/OR FEVER >101F Al Hydroxide/Mg Hydroxide (Milk Of [place]) 30 ml PO Q12H PRN PRN Reason: Mild Constipation Albuterol (Duoneb Neb (Prn)) 1 ampul NEB Q2HR NEB PRN PRN Reason: WHEEZING Bisacodyl (Dulcolax Supp) 10 mg RECTAL DAILY PRN PRN Reason: SEVERE CONSITIPATION Chlorhexidine Gluconate (Peridex 0.12% Oral Kit) 15 ml OROPHARYNG BID@0800, 2000 [facility] Chlorhexidine Gluconate (Chlorhexidine 2% Cloth) 3 pack TOPICAL DAILY@0400 PRN PRN Reason: Extra cloth needed Stop: 02/07/18 03:59 Chlorhexidine Gluconate (Chlorhexidine 2% Cloth) 3 pack TOPICAL DAILY@0400 [facility] Stop: 02/07/18 03:59 Enoxaparin Sodium (Lovenox Inj) 40 mg SQ Q24H [facility] Last Admin: 02/01/18 16:49 Dose: 40 mg Famotidine (Pepcid Pf Inj) 20 mg IV.PUSH Q12HR [facility] Propofol (Diprivan 1000 Mg/100 Ml Inj) 1,000 mg in 100 mls @ 2.585 mls/hr IV.CONT TITRATE PRN; Protocol PRN Reason: Per Protocol Last Admin: 02/01/18 16:57 Dose: 5 mcg/kg/min, 2.59 mls/hr Potassium Chloride/Sodium Chloride (Ns + Kcl 20 Meq Inj) 1,000 mls @ 100 mls/ hr IV.CONT .Q10H [facility] Last Admin: 02/01/18 16:49 Dose: 100 mls/hr Fosphenytoin Sodium 100 mgpe/ (Sodium Chloride) 52 mls @ 208 mls/hr IV.SIG Q8HR [facility] Midazolam HCl (Versed Inj) 50 mg in 50 mls @ 2 mls/hr IV.CONT TITRATE PRN; Protocol PRN Reason: Per Protocol Lactulose (Lactulose Liq) 30 ml PO DAILY PRN PRN Reason: SEVERE CONSITIPATION Lorazepam (Ativan Inj) 2 mg IV.PUSH Q1H PRN PRN Reason: SEIZURES Senna/Docusate Sodium (Cynthia-Colace) 1 tab PO BID [facility] Sennosides (Senokot) 17.2 mg PO Q12H PRN PRN Reason: Moderate Constipation Sodium Chloride (Ns Flush) 2 ml IV.FLUSH BID [facility] Sodium Chloride (Ns Flush) 2 ml IV.FLUSH PRN PRN PRN Reason: FLUSH AFTER USING IV ACCESS Allergies Allergy/AdvReac Type Severity Reaction Status Date / Time No Allergy Information Allergy Unverified 02/01/18 14:03 Available Exam Vital signs: Vital Signs 02/01/18 14:05 02/01/18 14:27 02/01/18 14:30 Temperature 99.5 F Pulse Rate 105 H 116 H Respiratory Rate 16 13 Blood Pressure 133/60 131/76 Pulse Oximetry 99 100 2 L 02/01/18 14:56 02/01/18 15:05 02/01/18 15:23 Temperature Pulse Rate 100 H 89 Respiratory Rate 18 21 23 Blood Pressure 186/91 H 128/68 Pulse Oximetry 100 100 100 02/01/18 16:00 02/01/18 16:07 02/01/18 16:09 Temperature Pulse Rate 87 Respiratory Rate 17 16 Blood Pressure 128/84 Pulse Oximetry 100 100 100 02/01/18 17:00 02/01/18 18:00 02/01/18 19:00 Temperature 98.7 F Pulse Rate 89 84 78 Respiratory Rate 16 16 16 Blood Pressure 131/76 113/57 L 121/65 Pulse Oximetry 100 100 100 Intake & Output 02/01/18 02/01/18 02/02/18 06:59 18:59 06:59 Intake Total 170 / 170 Balance 170 / 170 Weight 86.183 kg Intake: IV 170 / 170 Cerebyx Inj 1,000 MGPE In NS 70 / 70 Inj 50 ML @ 280 mls/hr IV.SIG ONCE ONE Rx#:[id number] Keppra 1000 mg/100 mL Premix 100 / 100 100 ML @ 400 mls/hr IV.SIG ONCE ONE Rx#:[id number] Results - Labs CBC & Chem 7: 02/01/18 14:15 02/01/18 14:15 Labs: Laboratory Results - last 24 hr 02/01/18 02/01/18 02/01/18 14:15 14:15 14:15 WBC 8.6 RBC 4.54 Hgb 13.2 Hct 41.2 MCV 90.8 MCH 29.2 MCHC 32.1 RDW 13.4 Plt Count 293 MPV 7.8 Neut % (Auto) 61.3 Lymph % (Auto) 30.8 [place] % (Auto) 6.3 Eos % (Auto) 1.3 Baso % (Auto) 0.3 Neut # (Auto) 5.3 Lymph # (Auto) 2.6 [place] # (Auto) 0.5 Eos # (Auto) 0.1 Baso # (Auto) 0.0 WBC Differential . Differential Comment Auto diff final Puncture Site Patient Temperature O2 Saturation ABG pH ABG pCO2 ABG pO2 ABG HCO3 ABG O2 Content ABG Base Excess ABG Methemoglobin Javier Test Hemoglobin Carboxyhemoglobin O2 Delivery Device Vent Setting Inspired O2 Critical Value Sodium 143 Potassium 3.6 Chloride 107 Carbon Dioxide 17.0 L Anion Gap 19 H BUN 12 Creatinine 1.39 H Estimated GFR 59 L Random Glucose 92 Lactic Acid Calcium 8.6 Magnesium 2.3 Total Bilirubin 0.3 AST 9 L ALT 14 Alkaline Phosphatase 81 Total Creatine Kinase 72 Total Protein 7.2 Albumin 3.7 Urine Color Urine Clarity Urine pH Ur Specific [place] Urine Protein Urine Glucose (UA) Urine Ketones Urine Occult Blood Urine Nitrate Urine Bilirubin Urine Urobilinogen Ur Leukocyte Esterase Urine RBC Urine WBC Ur Squamous Epith Cells Amorphous Sediment Urine Mucus Micro UA Comment Ur Microscopic Review Urine Culture Comments Urine Opiates Screen Ur Barbiturates Screen Phenytoin Less than 0.4 L Carbamazepine Less than 0.5 L Ur Amphetamines Screen Phenobarbital Less than 2.1 L U Benzodiazepines Scrn Urine Cocaine Screen U Cannabinoids Screen 02/01/18 02/01/18 02/01/18 14:40 14:40 15:30 WBC RBC Hgb Hct MCV MCH MCHC RDW Plt Count MPV Neut % (Auto) Lymph % (Auto) [place] % (Auto) Eos % (Auto) Baso % (Auto) Neut # (Auto) Lymph # (Auto) [place] # (Auto) Eos # (Auto) Baso # (Auto) WBC Differential Differential Comment Puncture Site Right radial Patient Temperature 98.6 O2 Saturation 97 ABG pH 7.37 L ABG pCO2 41 ABG pO2 137 H ABG HCO3 23 ABG O2 Content 16.9 ABG Base Excess -1.2 ABG Methemoglobin 0.8 Javier Test Present Hemoglobin 12.3 Carboxyhemoglobin 1.5 O2 Delivery Device Ventilator Vent Setting Ac16/550/+5 Inspired O2 40 Critical Value No Sodium Potassium Chloride Carbon Dioxide Anion Gap BUN Creatinine Estimated GFR Random Glucose Lactic Acid Calcium Magnesium Total Bilirubin AST ALT Alkaline Phosphatase Total Creatine Kinase Total Protein Albumin Urine Color Yellow Urine Clarity Cloudy H Urine pH 5.0 Ur Specific [place] 1.018 Urine Protein 30 H Urine Glucose (UA) Negative Urine Ketones Trace H Urine Occult Blood Small H Urine Nitrate Negative Urine Bilirubin Negative Urine Urobilinogen Less than 2 Ur Leukocyte Esterase Negative Urine RBC Less than 1 Urine WBC 1 Ur Squamous Epith Cells <1 Amorphous Sediment Moderate H Urine Mucus Few H Micro UA Comment Cath-culture not ind Ur Microscopic Review Not Reportable Urine Culture Comments Cath-cult not ind Urine Opiates Screen Neg Ur Barbiturates Screen Neg Phenytoin Carbamazepine Ur Amphetamines Screen Neg Phenobarbital U Benzodiazepines Scrn Pos H Urine Cocaine Screen Neg U Cannabinoids Screen Pos H 02/01/18 16:38 WBC RBC Hgb Hct MCV MCH MCHC RDW Plt Count MPV Neut % (Auto) Lymph % (Auto) [place] % (Auto) Eos % (Auto) Baso % (Auto) Neut # (Auto) Lymph # (Auto) [place] # (Auto) Eos # (Auto) Baso # (Auto) WBC Differential Differential Comment Puncture Site Patient Temperature O2 Saturation ABG pH ABG pCO2 ABG pO2 ABG HCO3 ABG O2 Content ABG Base Excess ABG Methemoglobin Javier Test Hemoglobin Carboxyhemoglobin O2 Delivery Device Vent Setting Inspired O2 Critical Value Sodium Potassium Chloride Carbon Dioxide Anion Gap BUN Creatinine Estimated GFR Random Glucose Lactic Acid 1.3 Calcium Magnesium Total Bilirubin AST ALT Alkaline Phosphatase Total Creatine Kinase Total Protein Albumin Urine Color Urine Clarity Urine pH Ur Specific [place] Urine Protein Urine Glucose (UA) Urine Ketones Urine Occult Blood Urine Nitrate Urine Bilirubin Urine Urobilinogen Ur Leukocyte Esterase Urine RBC Urine WBC Ur Squamous Epith Cells Amorphous Sediment Urine Mucus Micro UA Comment Ur Microscopic Review Urine Culture Comments Urine Opiates Screen Ur Barbiturates Screen Phenytoin Carbamazepine Ur Amphetamines Screen Phenobarbital U Benzodiazepines Scrn Urine Cocaine Screen U Cannabinoids Screen - Imaging Impressions Chest X-Ray 02/01/18 14:03 CONCLUSION: 1. Exam degraded by motion artifact. 2. No gross abnormality. Head CT 02/01/18 14:03 CONCLUSION: 1. Small area of decreased density involving the subinsular cortex on the right. Exact etiology is uncertain. It is poorly characterized on this exam. I cannot completely exclude an area of infarction. MRI with contrast is suggested to further assess. . Chest X-Ray 02/01/18 14:38 CONCLUSION: Clear lungs. Review/Management - Diagnosis (1) Hypocapnemia Code(s): E87.8 - Other disorders of electrolyte and fluid balance, not elsewhere classified Status: Acute Current Visit: Yes (2) Dehydration, mild Code(s): E86.0 - Dehydration Status: Acute Current Visit: Yes - Review/Management Plan: 1. ADD KEPPRA 1000MG IV THEN 500MG IV Q 12HOUR 2. EEG 3. BRAIN MRI 2MM CUT AFTER EXTUBATED 4. SZ PRECAUTION 5. NO DRIVING IF IMPROVED 6. D/W ER , WILL D/W PMD, FOLLOW DR. SANCHEZ THANK YOU VERY MUCH FOR THE COURTESY OF THIS VERY KINDLY REFERRAL
[2018-02-01] MEDS ORDERED: Famotidine PF Inj 20 MG/2 ML Vial IV.PUSH SCH (21:00)
[2018-02-01] MEDS: Chlorhexidine 0.12% Oral Kit 15 ML UDC OROPHARYNG SCH (21:51)
[2018-02-01] MEDS: Senna/Docusate Sodium 8.6/50 MG Tablet PO SCH (21:52)
[2018-02-01] MEDS: Fosphenytoin Inj 100 MGPE in Sodium Chlor 0.9% Inj 50 ML IV.SIG SCH (21:52)
[2018-02-01] MEDS: Midazolam 50 MG/50 ML Inj 50 MG/50 ML BAG IV.CONT PRN (22:02)
[2018-02-02] MEDS: Oral Hygiene Kit OROPHARYNG SCH ×4 (01:10→17:18)
[2018-02-02] MEDS: Midazolam 50 MG/50 ML Inj 50 MG/50 ML BAG IV.CONT PRN ×4 (02:48→17:46)
[2018-02-02] MEDS: Propofol 1000 mg/100 ml Inj 1,000 MG/100 ML BOTTLE IV.CONT PRN ×6 (02:48→19:11)
[2018-02-02] MEDS: Chlorhexidine Gluconate 2% 1 Pack (2 Cloths) TOPICAL SCH (03:04)
[2018-02-02] MEDS ORDERED: Chlorhexidine Gluconate 2% 1 Pack (2 Cloths) TOPICAL PRN (04:00)
[2018-02-02] MEDS: Fosphenytoin Inj 100 MGPE in Sodium Chlor 0.9% Inj 50 ML IV.SIG SCH ×3 (05:03→21:00)
[2018-02-02 05:18] LABS: Alanine Aminotransferase 14 U/L (12-78); Albumin 3.1 g/dL (3.4-5.0); Alkaline Phosphatase 76 U/L (45-117); Anion Gap 9 meq/L (5-15); Aspartate Aminotransferase 19 U/L (15-37); Blood Urea Nitrogen 13 mg/dL (7-18); Calcium 8.3 mg/dL (8.5-10.1); Carbon Dioxide 19.8 meq/L (21.0-32.0); Chloride 115 meq/L (98-107); Glomerular Filtration Rate 69 mL/min (>89); Glucose,Random 85 mg/dL (74-106); Magnesium 2.8 mg/dL (1.5-2.5); Potassium 4.4 meq/L (3.5-5.1); Total Protein 6.3 g/dL (6.4-8.2)
[2018-02-02 05:24] LABS: Sodium 144 meq/L (136-145)
[2018-02-02] MEDS: levETIRAcetam 1000mg/100mL Inj 100 ML IV.SIG SCH ×2 (06:34→18:49)
[2018-02-02] MEDS: Senna/Docusate Sodium 8.6/50 MG Tablet PO SCH ×2 (08:37→20:55)
[2018-02-02] MEDS: Polyvinyl Alcohol/Povidone PF Opth Drops 0.4 ML Dropperette EACH EYE SCH ×2 (08:38→20:59)
[2018-02-02] MEDS: Chlorhexidine 0.12% Oral Kit 15 ML UDC OROPHARYNG SCH ×2 (08:38→20:56)
--- NOTE | 2018-02-02 10:10 | P.PNCC ---
Subjective Subjective Remarks/Hospital Course: Patient is a 32-year-old male with seizure disorder noncompliant to medication who presented to emergency department in status epilepticus. Apparently he had 2 seizures at work, EMS was called they gave a total of 4 mg IV Versed with no response. Presented to the ED altered still seizing. Received total 4 mg IV Ativan in the emergency department without response. Patient was intubated for airway protection and status epilepticus. Postintubation was loaded with Keppra and critical care medicine was consulted. Patient was also placed on propofol infusion. He has a history of noncompliance previously had been on Dilantin currently only on Klonopin per history from his sister ED obtained. I am also told that patient was admitted to a [facility] for approximately 1 week and this was a week ago for same diagnosis of uncontrolled seizures I evaluated the patient in the emergency department. He continues to have tremulous shaking movements of the lower extremities somewhat purposefully with the right upper extremity. I bolused 50 mg IV propofol followed by 5 mg of IV Versed for control of seizures and ventilator synchrony. I have ordered loading dose of 1 g IV fosphenytoin and then will continue 100 mg IV every 8 hours. Neurology consult had been requested as well as stat EEG. Also will get a CT of the head with no contrast. Urine drug screen is pending at this time Subjective 02/02: Currently resting in bed sedated on propofol drip at 50 mcg/kg/min and midazolam drip at 10 mg an hour. Radiology recommended MRI with contrast for abnormal CT that showed decreased density in this insular cortex on the right. Noted EEG revealed left anterior temporal sharp activity possibly epileptiform activity. Objective Vital Signs / I&O: Vital Signs 02/01/18 14:05 02/01/18 14:27 02/01/18 14:30 Temperature 99.5 F Pulse Rate 105 H 116 H Respiratory Rate 16 13 Blood Pressure 133/60 131/76 Pulse Oximetry 99 100 2 L 02/01/18 14:56 02/01/18 15:05 02/01/18 15:23 Temperature Pulse Rate 100 H 89 Respiratory Rate 18 21 23 Blood Pressure 186/91 H 128/68 Pulse Oximetry 100 100 100 02/01/18 16:00 02/01/18 16:07 02/01/18 16:09 Temperature Pulse Rate 87 Respiratory Rate 17 16 Blood Pressure 128/84 Pulse Oximetry 100 100 100 02/01/18 17:00 02/01/18 18:00 02/01/18 19:00 Temperature 98.7 F Pulse Rate 89 84 78 Respiratory Rate 16 16 16 Blood Pressure 131/76 113/57 L 121/65 Pulse Oximetry 100 100 100 02/01/18 19:36 02/01/18 20:00 02/01/18 20:33 Temperature 97.0 F L 97.0 F L Pulse Rate 73 72 Respiratory Rate 16 16 16 Blood Pressure 115/61 115/61 Pulse Oximetry 100 100 100 02/01/18 21:00 02/01/18 21:30 02/01/18 22:00 Temperature Pulse Rate 70 68 64 Respiratory Rate 16 16 16 Blood Pressure 112/62 111/63 117/75 Pulse Oximetry 100 100 100 02/01/18 22:30 02/01/18 23:00 02/01/18 23:30 Temperature Pulse Rate 65 65 63 Respiratory Rate 16 16 16 Blood Pressure 111/65 112/68 112/66 Pulse Oximetry 100 100 100 02/01/18 23:44 02/02/18 00:00 02/02/18 00:30 Temperature 97.0 F L Pulse Rate 62 63 Respiratory Rate 16 16 16 Blood Pressure 110/69 109/63 Pulse Oximetry 100 100 100 02/02/18 01:00 02/02/18 01:30 02/02/18 02:00 Temperature Pulse Rate 63 62 61 Respiratory Rate 16 16 16 Blood Pressure 108/61 107/65 107/66 Pulse Oximetry 100 100 100 02/02/18 02:30 02/02/18 03:00 02/02/18 03:30 Temperature Pulse Rate 61 60 58 L Respiratory Rate 16 16 16 Blood Pressure 107/66 106/67 98/63 L Pulse Oximetry 100 100 100 02/02/18 03:50 02/02/18 04:00 02/02/18 04:33 Temperature 97.6 F Pulse Rate 59 L 58 L Respiratory Rate 16 16 16 Blood Pressure 101/68 121/74 Pulse Oximetry 100 100 100 02/02/18 05:00 02/02/18 05:30 02/02/18 06:00 Temperature Pulse Rate 67 63 63 Respiratory Rate 16 16 16 Blood Pressure 124/86 117/81 110/73 Pulse Oximetry 100 100 100 02/02/18 07:00 02/02/18 07:17 02/02/18 08:00 Temperature 97.3 F L Pulse Rate 59 L 59 L Respiratory Rate 16 16 16 Blood Pressure 106/71 106/71 Pulse Oximetry 100 100 100 02/02/18 09:00 18 09:09 Temperature 97.3 F L Pulse Rate 59 L 58 L Respiratory Rate 16 16 Blood Pressure 106/71 Pulse Oximetry 100 Intake & Output 02/01/18 02/02/18 02/02/18 18:59 06:59 18:59 Intake Total 170 / 170 3554 / 3554 150 / 150 Output Total 1000 / 1000 Balance 170 / 170 2554 / 2554 150 / 150 Weight 86.183 kg Intake: IV 170 / 170 3554 / 3554 150 / 150 Versed Inj 50 mg In 50 ml @ 2 50 / 50 50 / 50 MG/HR 2 mls/hr IV.CONT TITRATE PRN Rx#:[id number] NS + KCl 20 mEq Inj 1,000 ML @ 1000 / 1000 100 mls/hr IV.CONT .Q10H K[facility]AR Rx #:[id number] Diprivan 1000 mg/100 ml Inj 1, 300 / 300 100 / 100 000 mg In 100 ml @ 5 MCG/KG/MIN 2.585 mls/hr IV.CONT TITRATE PRN Rx#:[id number] Cerebyx Inj 100 MGPE In NS Inj 104 / 104 50 ML @ 208 mls/hr IV.SIG Q8HR KAMAR Rx#:[id number] Cerebyx Inj 1,000 MGPE In NS 70 / 70 Inj 50 ML @ 280 mls/hr IV.SIG ONCE ONE Rx#:[id number] NS Inj 1,000 ML @ Wide Open IV. 1999 SIG BOLUS KAMAR Rx#:[id number] Keppra 1000 mg/100 mL Premix 100 / 100 100 / 100 100 ML @ 400 mls/hr IV.SIG Q12H K[facility] Rx#:[id number] Output: Urine Amount (Catheter) 1000 / 1000 Indwelling Urethral Catheter 1000 / 1000 Result Diagrams: 02/02/18 10:26 02/02/18 04:45 Imaging: Chest X-Ray 02/01/18 14:03 CONCLUSION: 1. Exam degraded by motion artifact. 2. No gross abnormality. Head CT 02/01/18 14:03 CONCLUSION: 1. Small area of decreased density involving the subinsular cortex on the right. Exact etiology is uncertain. It is poorly characterized on this exam. I cannot completely exclude an area of infarction. MRI with contrast is suggested to further assess. . Chest X-Ray 02/01/18 14:38 CONCLUSION: Clear lungs. Objective Remarks: GENERAL: 32-year-old male currently orotracheally intubated SKIN: Warm and dry. HEAD: Atraumatic. Normocephalic. EYES: Pupils equal and round. No scleral icterus. No injection or drainage. ENT: No nasal bleeding or discharge. Mucous membranes pink and moist. NECK: Trachea midline. No JVD. CARDIOVASCULAR: Bradycardic, RRR. S1, S2. No S4. Without murmur RESPIRATORY: No accessory muscle use. Clear to auscultation. Breath sounds equal bilaterally. GASTROINTESTINAL: Abdomen soft, non-tender, nondistended. Hepatic and splenic margins not palpable. MUSCULOSKELETAL: Extremities without clubbing, cyanosis, or edema. No obvious deformities. NEUROLOGICAL: Sedated on the ventilator. Minimal cough and gag. Does not withdraw to pain. Pupils react bilaterally Assessment and Plan - Assessment and Plan Plan: NEURO/PSYCH: Status epilepticus Seizure disorder Noncompliance with medication THC use -Currently on propofol drip at 50 mcg/kg/min and midazolam drip at 10 mg an hour for sedation and ventilator synchrony -Lorazepam 2 mg IV q. one hour as needed for seizures -Given levetiracetam 1 g in the ED currently on 500 mg twice daily, load with fosphenytoin 1 g IV 1/currently on 100 mg every 8 hours -check phenytoin level in a.m., -neurology consult with Dr. John appreciated. -CT of the brain revealed decreased dizziness insular cortex on the right. Recommended MRI brain with contrast -EEG revealed left anterior temporal sharp activity. -UDS + benzos,THC RESP: Acute respiratory failure -PRVC/AC 16//05/23/34, head of the bed elevation -Ventilator bundle -Albuterol/ipratropium aerosols every 6 hours with albuterol aerosols every 2 hours as needed for dyspnea -SBT when appropriate, and seizures are controlled -Chest x-ray negative CV: -Normal saline IV fluids 84 ml per hour. Give additional 1 L normal saline bolus -Monitor blood pressure heart rate GI: -N.p.o., lansoprazole for GI prophylaxis. Docusate sodium/senna 1 tablet twice daily for bowel regimen -Start tube feeds with Jevity Jevity 1.5 at 50 cc an hour Renal/FEN/: Acute kidney injury -Monitor renal function closely. Place El catheter. -Monitor creatinine after adequate hydration ID: -No Antibiotics at this time -Blood urine and sputum cultures if indicated only HEME: -Monitor CBC, coags and follow trends ENDO: -Electrolyte replacement per protocol -Sliding scale insulin if needed PROPH: -Bilateral lower extremity SCDs. Enoxaparin/lansoprazole LINES: -Utilize peripheral IVs, central line if needed Level 3 follow-up Attempted to contact Sowmya Miller -mother at [phone]. At [phone]. Voicemail.
[2018-02-02 10:35] LABS: Baso % (Auto) 0.4 % (0.0-2.0); Eos # (Auto) 0.2 th/mm3 (0.0-0.4); Eos % (Auto) 2.6 % (0.0-4.0); Hematocrit 40.6 % (39.0-51.0); Hemoglobin 13.5 gm/dL (13.0-17.0); Lymph % (Auto) 31.8 % (9.0-44.0); Mean Corpuscular HGB Conc 33.1 % (32.0-36.0); Mean Corpuscular Hemoglobin 29.7 pg (27.0-34.0); Mean Corpuscular Volume 89.7 fL (80.0-100.0); Mean Platelet Volume 7.5 fL (7.0-11.0); Mono # (Auto) 0.5 th/mm3 (0.0-0.9); Mono % (Auto) 8.4 % (0.0-8.0); Neut # (Auto) 3.6 th/mm3 (1.8-7.7); Neut % (Auto) 56.8 % (16.0-70.0); Platelet Count 238 th/mm3 (150-450); Red Blood Count 4.52 mil/mm3 (4.50-5.90); Red Cell Distribution Width 13.8 % (11.6-17.2); White Blood Count 6.3 th/mm3 (4.0-11.0)
--- NOTE | 2018-02-02 10:43 | XR ---
EXAM DATE: 02/02/2018 10:40 AM EDT AGE/SEX: 32 years / Male INDICATIONS: MRI clearance. CLINICAL DATA: This is the patient's initial encounter. Patient reports that signs and symptoms have been present for 1 day and indicates a pain score of Nonresponsive. MEDICAL/SURGICAL HISTORY: None. None. COMPARISON: No prior exams available for comparison. FINDINGS: The abdominal bowel gas pattern is normal. No abnormal masses, calcifications, or organomegaly is s een. Mild degenerative changes and scoliosis of the thoracolumbar spine are noted. No metallic foreig n bodies are noted. A nasogastric tube is looped in the stomach. CONCLUSION: 1. No metallic foreign bodies identified. 2. No bowel obstruction or ileus. 3. Mild degenerative changes and scoliosis of the thoracolumbar spine. Electronically signed by: Zana Ramires MD 02/02/2018 10:42 AM EDT
--- NOTE | 2018-02-02 11:12 | P.DIET ---
Nutritional Evaluation Type of nutrition evaluation: initial Nutrition consult regarding: Tube Feeding Objective - Diagnosis Status Epilepticus - Objective % IBW: 119 (IBW = 160#) Body Weight Used for Calculations: Actual (86.2 kg) Energy Needs - Lower Range (kCal/kg): 25 Energy Needs - Upper Range (kCal/kg): 30 Lower Limit kCal/kg (kCals): 2,155 Upper Limit kCal/kg (kCals): 2,586 Lower Limit Protein Factor (Grams per Kg): 1.0 Upper Limit Protein Factor (Grams per Kg): 1.5 Lower Protein Needs (Protein): 86 Upper Protein Needs (Protein): 129 Dietitian Reviewed in Medical Record: Curent medications, Intake & Output, Labs , Medical history, Tube feeding Assessment Assessment: Pt is vented and sedated on propofol and at high nutrition risk 2' to the need for TFing. Current order is for Jevity 1.5 @ 50 mls/hr goal. To meet needs with Jevity 1.5, recommend goal rate of 60 mls/hr to provide 2160 kcals, 92 gms protein and 1094 mls of free water. Some additional kcals will be provided by propofol (1.1 kcal/ml). Currently propofol is at 23 mls/hr (607 kcals). Recommendations: Jevity 1.5 @ 60 mls/hr goal Dietitian to Monitor: Lab values, Intake & Output, Tube feeding tolerance, Weight change, Medical course
--- NOTE | 2018-02-02 12:24 | MG ---
cc: Drew Mcrae MD EEG NUMBER: [id number]. INDICATIONS: The patient is intubated on Diprivan. Right insular region abnormality. Versed, Keppra. Possible seizures. FINDINGS: Recording shows basically diffuse diminished amplitude in a burst suppression type pattern with a burst of about 2.5 to 3 seconds with some beta rhythms slightly sharply contoured more over the left than the right with a very slow amplitude. There is suppression lasting at times up to 20 seconds and this continues throughout the recording. Photic stimulation is performed without significant posterior driving. IMPRESSION: Some small sharp waves are noted, very low amplitude, more so on the left in a burst suppression type pattern. It is unclear if this is a medication effect. MD DAMASO Fitzgerald/michele/barron , 10:36 AM , 10:43 AM
[2018-02-02] MEDS: Enoxaparin Inj 40 MG/0.4 ML Syringe SQ SCH (17:18)
[2018-02-02] MEDS ORDERED: Gadobutrol PF 10 MMOL/10 ML Vial (for RAD) IV.SIG ONE (18:31)
--- NOTE | 2018-02-02 18:42 | MR ---
EXAM DATE: 02/02/2018 6:28 PM EDT AGE/SEX: 32 years / Male INDICATIONS: Seizures. CLINICAL DATA: This is the patient's initial encounter. Patient reports that signs and symptoms have been present for 2 days and indicates a pain score of Nonresponsive. MEDICAL/SURGICAL HISTORY: . UNKNOWN. CLEARED BY RAD. . UNKNOWN. COMPARISON: No prior exams available for comparison. TECHNIQUE: Multiplanar, multisequence examination of the brain was performed without and with 9 ml Ga davist (gadobutrol) contrast as a single exam dose. FINDINGS: Probable remote lacunar infarct or traumatic remote injury in the subinsular region on the right. The re is some hemosiderin deposition in this area likely from prior hemorrhage. No recent infarct identified on the diffusion weighted images. No hydrocephalus. No abnormal extra-ax ial fluid collections are present. No abnormal enhancement postcontrast. CONCLUSION: 1. Focal mostly linear signal abnormality in the subinsular region on the right correlating with rec ent head CT examination. This could be related to a prior infarct or trauma with remote hemorrhage wi th hemosiderin deposition noted on the gradient echo images. No recent infarct. No mass effect or mio ft. Postcontrast images reveal no abnormal enhancing lesions. Electronically signed by: Jerman Thibodeaux MD 02/02/2018 6:41 PM EDT
--- NOTE | 2018-02-02 18:59 | MG ---
cc: Honorio Biggs MD EEG RECORD NUMBER: [id number] DESCRIPTION: increased myogenic artifact occurring in almost all the channels off and on. Background showed generalized 1-3 Hz alpha activity with theta frequencies 10-40 microvolts. Limited driving with photic stimulation with delta frequency spindles suggestive of possible underlying stage II sleep. INTERPRETATION: Mild encephalopathy, sleep state and artifact. Absence of epileptic activity. Clinical correlation. MD SUNSHINE Estrella/ld/do , 04:52 PM , 04:57 PM MTDD
--- NOTE | 2018-02-02 19:06 | ECG ---
Date Performed: 02/01/2018 Time Performed: 14:21:12 PTAGE: 32 years EKG: Sinus rhythm NORMAL ECG NO PREVIOUS TRACING DOCTOR: Abigail Rodríguez Interpretating Date/Time 02/02/2018 19:04:37
[2018-02-03] MEDS: Oral Hygiene Kit OROPHARYNG SCH ×4 (02:05→23:06)
[2018-02-03] MEDS: Midazolam 50 MG/50 ML Inj 50 MG/50 ML BAG IV.CONT PRN ×2 (02:06→10:00)
[2018-02-03] MEDS: Propofol 1000 mg/100 ml Inj 1,000 MG/100 ML BOTTLE IV.CONT PRN ×3 (02:08→22:11)
[2018-02-03] MEDS: Chlorhexidine Gluconate 2% 1 Pack (2 Cloths) TOPICAL SCH (03:46)
[2018-02-03] MEDS: Fosphenytoin Inj 100 MGPE in Sodium Chlor 0.9% Inj 50 ML IV.SIG SCH ×3 (05:39→21:00)
[2018-02-03] MEDS: levETIRAcetam 1000mg/100mL Inj 100 ML IV.SIG SCH ×2 (06:00→18:02)
[2018-02-03 06:18] LABS: Alanine Aminotransferase 12 U/L (12-78); Alkaline Phosphatase 77 U/L (45-117); Phenytoin (Dilantin) 12.2 mcg/mL (10.0-20.0); Phosphorus 3.8 mg/dL (2.5-4.9); Total Protein 6.4 g/dL (6.4-8.2)
[2018-02-03 06:19] LABS: Anion Gap 9 meq/L (5-15); Aspartate Aminotransferase 15 U/L (15-37); Blood Urea Nitrogen 11 mg/dL (7-18); Calcium 8.3 mg/dL (8.5-10.1); Carbon Dioxide 23.2 meq/L (21.0-32.0); Chloride 117 meq/L (98-107); Glomerular Filtration Rate 74 mL/min (>89); Glucose,Random 87 mg/dL (74-106); Magnesium 2.4 mg/dL (1.5-2.5); Potassium 4.2 meq/L (3.5-5.1); Sodium 149 meq/L (136-145)
[2018-02-03 06:24] LABS: Baso % (Auto) 0.5 % (0.0-2.0); Eos # (Auto) 0.1 th/mm3 (0.0-0.4); Eos % (Auto) 1.2 % (0.0-4.0); Hematocrit 38.4 % (39.0-51.0); Hemoglobin 12.9 gm/dL (13.0-17.0); Lymph # (Auto) 1.7 th/mm3 (1.0-4.8); Lymph % (Auto) 18.8 % (9.0-44.0); Mean Corpuscular HGB Conc 33.6 % (32.0-36.0); Mean Corpuscular Hemoglobin 29.7 pg (27.0-34.0); Mean Corpuscular Volume 88.3 fL (80.0-100.0); Mean Platelet Volume 8.9 fL (7.0-11.0); Mono # (Auto) 0.6 th/mm3 (0.0-0.9); Mono % (Auto) 6.4 % (0.0-8.0); Neut # (Auto) 6.7 th/mm3 (1.8-7.7); Neut % (Auto) 73.1 % (16.0-70.0); Platelet Count 227 th/mm3 (150-450); Red Blood Count 4.35 mil/mm3 (4.50-5.90); Red Cell Distribution Width 13.6 % (11.6-17.2); White Blood Count 9.1 th/mm3 (4.0-11.0)
--- NOTE | 2018-02-03 07:17 | P.PNNEU ---
Subjective Subjective Comments: no sz overnoc Active Medications: Active Medications Acetaminophen (Tylenol) 650 mg PO Q6H PRN PRN Reason: PAIN 1-10 AND/OR FEVER >101F Al Hydroxide/Mg Hydroxide (Milk Of Isabel Lisamantha) 30 ml PO Q12H PRN PRN Reason: Mild Constipation Albuterol (Albuterol Neb (Prn)) 2.5 mg NEB Q2HR NEB PRN PRN Reason: DYSPNEA Albuterol (Duoneb Neb (Asim)) 1 ampul NEB Q6HR NEB [facility] Last Admin: 02/03/18 03:58 Dose: 1 ampul Artificial Tears (Refresh Classic 1.4/0.6% Pf Opth Drops) 1 drop EACH EYE BID [facility] Last Admin: 02/02/18 20:59 Dose: 1 drop Bisacodyl (Dulcolax Supp) 10 mg RECTAL DAILY PRN PRN Reason: SEVERE CONSITIPATION Chlorhexidine Gluconate (Peridex 0.12% Oral Kit) 15 ml OROPHARYNG BID@0800, 2000 [facility] Last Admin: 02/02/18 20:56 Dose: 15 ml Chlorhexidine Gluconate (Chlorhexidine 2% Cloth) 3 pack TOPICAL DAILY@0400 PRN PRN Reason: Extra cloth needed Stop: 02/07/18 03:59 Chlorhexidine Gluconate (Chlorhexidine 2% Cloth) 3 pack TOPICAL DAILY@0400 [facility] Stop: 02/07/18 03:59 Last Admin: 02/03/18 03:46 Dose: 3 pack Enoxaparin Sodium (Lovenox Inj) 40 mg SQ Q24H [facility] Last Admin: 02/02/18 17:18 Dose: 40 mg Propofol (Diprivan 1000 Mg/100 Ml Inj) 1,000 mg in 100 mls @ 2.585 mls/hr IV.CONT TITRATE PRN; Protocol PRN Reason: Per Protocol Last Titration: 02/03/18 06:30 Dose: 30 mcg/kg/min, 15.51 mls/hr Potassium Chloride/Sodium Chloride (Ns + Kcl 20 Meq Inj) 1,000 mls @ 100 mls/ hr IV.CONT .Q10H [facility] Last Infusion: 02/03/18 06:39 Dose: 100 mls/hr Fosphenytoin Sodium 100 mgpe/ (Sodium Chloride) 52 mls @ 208 mls/hr IV.SIG Q8HR [facility] Last Infusion: 02/03/18 05:54 Dose: Infused Midazolam HCl (Versed Inj) 50 mg in 50 mls @ 2 mls/hr IV.CONT TITRATE PRN; Protocol PRN Reason: Per Protocol Last Titration: 02/03/18 06:30 Dose: 6 mg/hr, 6 mls/hr Levetiracetam (Keppra 1000 Mg/100 Ml Premix) 100 mls @ 400 mls/hr IV.SIG Q12H [facility] Last Infusion: 02/03/18 06:15 Dose: Infused Lactulose (Lactulose Liq) 30 ml PO DAILY PRN PRN Reason: SEVERE CONSITIPATION Lansoprazole (Prevacid Solutab) 30 mg NG/OG DAILY [facility] Last Admin: 02/02/18 08:38 Dose: 30 mg Lorazepam (Ativan Inj) 2 mg IV.PUSH Q1H PRN PRN Reason: SEIZURES Last Admin: 02/02/18 05:18 Dose: 2 mg Lorazepam (Ativan Inj) 2 mg IV.PUSH Q5M PRN PRN Reason: SEIZURES Senna/Docusate Sodium (Cynthia-Colace) 1 tab PO BID [facility] Last Admin: 02/02/18 20:55 Dose: 1 tab Sennosides (Senokot) 17.2 mg PO Q12H PRN PRN Reason: Moderate Constipation Sodium Chloride (Ns Flush) 2 ml IV.FLUSH BID [facility] Last Admin: 02/02/18 21:00 Dose: 2 ml Sodium Chloride (Ns Flush) 2 ml IV.FLUSH PRN PRN PRN Reason: FLUSH AFTER USING IV ACCESS Allergies/Adverse Reactions: Allergies Allergy/AdvReac Type Severity Reaction Status Date / Time No Allergy Information Allergy Unverified 02/01/18 14:03 Available Physical Exam Vital signs: Vital Signs 02/02/18 07:17 02/02/18 08:00 02/02/18 08:30 Temperature Pulse Rate 59 L 59 L Respiratory Rate 16 16 16 Blood Pressure 106/71 105/71 Pulse Oximetry 100 100 100 02/02/18 09:00 02/02/18 09:09 02/02/18 09:30 Temperature 97.3 F L Pulse Rate 59 L 58 L 59 L Respiratory Rate 16 16 16 Blood Pressure 106/71 107/72 Pulse Oximetry 100 100 02/02/18 09:50 02/02/18 10:00 02/02/18 11:00 Temperature Pulse Rate 60 58 L 59 L Respiratory Rate 16 17 16 Blood Pressure 100/65 106/70 Pulse Oximetry 100 100 100 02/02/18 11:17 02/02/18 11:30 02/02/18 11:31 Temperature Pulse Rate 70 69 Respiratory Rate 19 20 19 Blood Pressure 132/76 132/77 Pulse Oximetry 100 100 100 02/02/18 12:00 02/02/18 12:33 02/02/18 13:00 Temperature 98.4 F Pulse Rate 102 H 72 73 Respiratory Rate 26 H 16 16 Blood Pressure 132/77 129/80 129/80 Pulse Oximetry 80 L 100 100 02/02/18 14:00 02/02/18 14:36 02/02/18 15:00 Temperature 98.8 F Pulse Rate 72 70 70 Respiratory Rate 16 16 16 Blood Pressure 107/62 105/63 Pulse Oximetry 100 100 100 02/02/18 15:30 02/02/18 15:31 02/02/18 15:32 Temperature Pulse Rate 68 68 Respiratory Rate 16 16 16 Blood Pressure 104/62 Pulse Oximetry 100 100 02/02/18 16:00 02/02/18 16:30 02/02/18 17:00 Temperature 98.7 F Pulse Rate 69 69 69 Respiratory Rate 16 16 16 Blood Pressure 105/63 107/67 107/67 Pulse Oximetry 100 100 100 02/02/18 17:30 02/02/18 18:00 02/02/18 18:44 Temperature Pulse Rate 72 74 Respiratory Rate 16 7 L Blood Pressure 105/63 105/63 Pulse Oximetry 100 100 100 02/02/18 18:54 02/02/18 19:00 02/02/18 19:30 Temperature Pulse Rate 74 71 73 Respiratory Rate 16 16 16 Blood Pressure 124/74 116/70 104/59 L Pulse Oximetry 100 100 100 02/02/18 20:00 02/02/18 20:30 02/02/18 21:00 Temperature 98.3 F Pulse Rate 74 70 71 Respiratory Rate 16 16 16 Blood Pressure 140/86 142/90 H 139/88 Pulse Oximetry 100 100 100 02/02/18 21:30 02/02/18 21:52 02/02/18 22:00 Temperature Pulse Rate 72 75 75 Respiratory Rate 16 16 16 Blood Pressure 140/89 119/66 Pulse Oximetry 100 100 02/02/18 22:30 02/02/18 23:00 02/02/18 23:30 Temperature Pulse Rate 77 76 75 Respiratory Rate 16 16 16 Blood Pressure 113/62 114/66 117/71 Pulse Oximetry 100 100 100 02/03/18 00:00 02/03/18 00:30 02/03/18 00:58 Temperature 99 F Pulse Rate 76 76 Respiratory Rate 16 16 16 Blood Pressure 120/71 133/84 Pulse Oximetry 100 100 02/03/18 01:00 02/03/18 01:30 02/03/18 02:00 Temperature Pulse Rate 80 71 76 Respiratory Rate 16 16 29 H Blood Pressure 126/80 119/75 121/78 Pulse Oximetry 100 100 100 02/03/18 02:30 02/03/18 03:00 02/03/18 03:30 Temperature Pulse Rate 72 71 68 Respiratory Rate 16 16 16 Blood Pressure 119/73 109/63 104/63 Pulse Oximetry 100 100 100 02/03/18 03:58 02/03/18 04:00 02/03/18 04:30 Temperature 97.9 F Pulse Rate 67 69 70 Respiratory Rate 16 16 16 Blood Pressure 109/69 117/78 Pulse Oximetry 100 100 100 02/03/18 05:00 02/03/18 05:30 02/03/18 06:00 Temperature Pulse Rate 72 71 72 Respiratory Rate 16 16 16 Blood Pressure 119/75 122/75 121/70 Pulse Oximetry 100 100 100 02/03/18 06:30 Temperature Pulse Rate 71 Respiratory Rate 16 Blood Pressure 105/58 L Pulse Oximetry 100 Intake & Output 02/02/18 02/03/18 02/03/18 18:59 06:59 18:59 Intake Total 1852 / 1852 1823 / 1823 Output Total 500 / 500 600 / 600 Balance 1352 / 1352 1223 / 1223 Weight 81 kg Intake: IV 1602 / 1602 1654 / 1654 Versed Inj 50 mg In 50 ml @ 2 150 / 150 50 / 50 MG/HR 2 mls/hr IV.CONT TITRATE PRN Rx#:[id number] NS + KCl 20 mEq Inj 1,000 ML @ 1000 / 1000 1000 / 1000 100 mls/hr IV.CONT .Q10H [facility] Rx #:[id number] Diprivan 1000 mg/100 ml Inj 1, 400 / 400 300 / 300 000 mg In 100 ml @ 5 MCG/KG/MIN 2.585 mls/hr IV.CONT TITRATE PRN Rx#:[id number] Cerebyx Inj 100 MGPE In NS Inj 52 / 52 104 / 104 50 ML @ 208 mls/hr IV.SIG Q8HR [facility] Rx#:[id number] Keppra 1000 mg/100 mL Premix 200 / 200 100 ML @ 400 mls/hr IV.SIG Q12H [facility] Rx#:[id number] Tube Feeding 119 / 119 Tube Irrigant 50 / 50 Water Bolus Amount 250 / 250 Output: Urine Amount (Catheter) 500 / 500 600 / 600 Indwelling Urethral Catheter 500 / 500 600 / 600 Other: Bladder Irrigation Fluid - Amount Instilled Indwelling Urethral Catheter 50 # Bowel Movements 0 Narrative: pupil = sedated toes mute no clonus - Urinary Catheter Management Indwelling Urethral Catheter Cath placed during this visit: yes, but has since been removed by the nurse Reason for continuing: Hourly intake/output Insertion date: 02/03/18 Insertion time: 01:05 Removal date: 02/03/18 Removal time: 01:00 Objective Laboratory Results - last 24 hr 02/02/18 02/02/18 02/03/18 10:26 12:47 03:40 WBC 6.3 RBC 4.52 Hgb 13.5 Hct 40.6 MCV 89.7 MCH 29.7 MCHC 33.1 RDW 13.8 Plt Count 238 MPV 7.5 Neut % (Auto) 56.8 Lymph % (Auto) 31.8 Coryell % (Auto) 8.4 H Eos % (Auto) 2.6 Baso % (Auto) 0.4 Neut # (Auto) 3.6 Lymph # (Auto) 2.0 [place] # (Auto) 0.5 Eos # (Auto) 0.2 Baso # (Auto) 0.0 WBC Differential . Differential Comment Auto diff final Sodium 149 H Potassium 4.2 Chloride 117 H Carbon Dioxide 23.2 Anion Gap 9 BUN 11 Creatinine 1.14 Estimated GFR 74 L POC Glucose Random Glucose 87 Calcium 8.3 L Phosphorus 3.8 Magnesium 2.4 Total Bilirubin 0.2 AST 15 ALT 12 Alkaline Phosphatase 77 Total Protein 6.4 Albumin 3.0 L Phenytoin 10.1 12.2 02/03/18 04:25 WBC RBC Hgb Hct MCV MCH MCHC RDW Plt Count MPV Neut % (Auto) Lymph % (Auto) [place] % (Auto) Eos % (Auto) Baso % (Auto) Neut # (Auto) Lymph # (Auto) [place] # (Auto) Eos # (Auto) Baso # (Auto) WBC Differential Differential Comment Sodium Potassium Chloride Carbon Dioxide Anion Gap BUN Creatinine Estimated GFR POC Glucose 99 Random Glucose Calcium Phosphorus Magnesium Total Bilirubin AST ALT Alkaline Phosphatase Total Protein Albumin Phenytoin Review/Management - Diagnosis (1) Hypocapnemia Code(s): E87.8 - Other disorders of electrolyte and fluid balance, not elsewhere classified Status: Acute Current Visit: Yes (2) Dehydration, mild Code(s): E86.0 - Dehydration Status: Acute Current Visit: Yes - Review/Management Plan: 1. ADD KEPPRA 1000MG IV THEN 500MG IV Q 12HOUR 2. EEG 3. BRAIN MRI 2MM CUT AFTER EXTUBATED 4. SZ PRECAUTION 5. NO DRIVING IF IMPROVED 6. D/W ER MD, WILL D/W PMD, FOLLOW DR. 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
[2018-02-03 07:37] LABS: Platelet Estimate Normal (Normal); Platelet Morphology Normal (Normal)
--- NOTE | 2018-02-03 09:09 | P.PNCC ---
Subjective Subjective Remarks/Hospital Course: Patient is a 32-year-old male with seizure disorder noncompliant to medication who presented to emergency department in status epilepticus. Apparently he had 2 seizures at work, EMS was called they gave a total of 4 mg IV Versed with no response. Presented to the ED altered still seizing. Received total 4 mg IV Ativan in the emergency department without response. Patient was intubated for airway protection and status epilepticus. Postintubation was loaded with Keppra and critical care medicine was consulted. Patient was also placed on propofol infusion. He has a history of noncompliance previously had been on Dilantin currently only on Klonopin per history from his sister ED obtained. I am also told that patient was admitted to a [facility] for approximately 1 week and this was a week ago for same diagnosis of uncontrolled seizures I evaluated the patient in the emergency department. He continues to have tremulous shaking movements of the lower extremities somewhat purposefully with the right upper extremity. I bolused 50 mg IV propofol followed by 5 mg of IV Versed for control of seizures and ventilator synchrony. I have ordered loading dose of 1 g IV fosphenytoin and then will continue 100 mg IV every 8 hours. Neurology consult had been requested as well as stat EEG. Also will get a CT of the head with no contrast. Urine drug screen is pending at this time 02/02: Currently resting in bed sedated on propofol drip at 50 mcg/kg/min and midazolam drip at 10 mg an hour. Radiology recommended MRI with contrast for abnormal CT that showed decreased density in this insular cortex on the right. Noted EEG revealed left anterior temporal sharp activity possibly epileptiform activity. Subjective 02/03: Resting comfortably in bed in no acute distress. Currently weaning off propofol and midazolam drips. 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 EEG revealed no seizure activity. Tube feeds currently at 30 cc Objective Vital Signs / I&O: Vital Signs 02/02/18 09:09 02/02/18 09:30 02/02/18 09:50 Temperature Pulse Rate 58 L 59 L 60 Respiratory Rate 16 16 16 Blood Pressure 107/72 100/65 Pulse Oximetry 100 100 02/02/18 10:00 02/02/18 11:00 02/02/18 11:17 Temperature Pulse Rate 58 L 59 L Respiratory Rate 17 16 19 Blood Pressure 106/70 Pulse Oximetry 100 100 100 02/02/18 11:30 02/02/18 11:31 02/02/18 12:00 Temperature 98.4 F Pulse Rate 70 69 102 H Respiratory Rate 20 19 26 H Blood Pressure 132/76 132/77 132/77 Pulse Oximetry 100 100 80 L 02/02/18 12:33 02/02/18 13:00 02/02/18 14:00 Temperature 98.8 F Pulse Rate 72 73 72 Respiratory Rate 16 16 16 Blood Pressure 129/80 129/80 Pulse Oximetry 100 100 100 02/02/18 14:36 02/02/18 15:00 02/02/18 15:30 Temperature Pulse Rate 70 70 68 Respiratory Rate 16 16 16 Blood Pressure 107/62 105/63 104/62 Pulse Oximetry 100 100 100 02/02/18 15:31 02/02/18 15:32 02/02/18 16:00 Temperature Pulse Rate 68 69 Respiratory Rate 16 16 16 Blood Pressure 105/63 Pulse Oximetry 100 100 02/02/18 16:30 02/02/18 17:00 02/02/18 17:30 Temperature 98.7 F Pulse Rate 69 69 72 Respiratory Rate 16 16 16 Blood Pressure 107/67 107/67 105/63 Pulse Oximetry 100 100 100 02/02/18 18:00 02/02/18 18:44 02/02/18 18:54 Temperature Pulse Rate 74 74 Respiratory Rate 7 L 16 Blood Pressure 105/63 124/74 Pulse Oximetry 100 100 100 02/02/18 19:00 02/02/18 19:30 02/02/18 20:00 Temperature 98.3 F Pulse Rate 71 73 74 Respiratory Rate 16 16 16 Blood Pressure 116/70 104/59 L 140/86 Pulse Oximetry 100 100 100 02/02/18 20:30 02/02/18 21:00 02/02/18 21:30 Temperature Pulse Rate 70 71 72 Respiratory Rate 16 16 16 Blood Pressure 142/90 H 139/88 140/89 Pulse Oximetry 100 100 100 02/02/18 21:52 02/02/18 22:00 02/02/18 22:30 Temperature Pulse Rate 75 75 77 Respiratory Rate 16 16 16 Blood Pressure 119/66 113/62 Pulse Oximetry 100 100 02/02/18 23:00 02/02/18 23:30 02/03/18 00:00 Temperature 99 F Pulse Rate 76 75 76 Respiratory Rate 16 16 16 Blood Pressure 114/66 117/71 120/71 Pulse Oximetry 100 100 100 02/03/18 00:30 02/03/18 00:58 02/03/18 01:00 Temperature Pulse Rate 76 80 Respiratory Rate 16 16 16 Blood Pressure 133/84 126/80 Pulse Oximetry 100 100 02/03/18 01:30 02/03/18 02:00 02/03/18 02:30 Temperature Pulse Rate 71 76 72 Respiratory Rate 16 29 H 16 Blood Pressure 119/75 121/78 119/73 Pulse Oximetry 100 100 100 02/03/18 03:00 02/03/18 03:30 02/03/18 03:58 Temperature Pulse Rate 71 68 67 Respiratory Rate 16 16 16 Blood Pressure 109/63 104/63 Pulse Oximetry 100 100 100 02/03/18 04:00 02/03/18 04:30 02/03/18 05:00 Temperature 97.9 F Pulse Rate 69 70 72 Respiratory Rate 16 16 16 Blood Pressure 109/69 117/78 119/75 Pulse Oximetry 100 100 100 02/03/18 05:30 02/03/18 06:00 02/03/18 06:30 Temperature Pulse Rate 71 72 71 Respiratory Rate 16 16 16 Blood Pressure 122/75 121/70 105/58 L Pulse Oximetry 100 100 100 02/03/18 07:30 02/03/18 08:59 Temperature Pulse Rate 71 Respiratory Rate 16 16 Blood Pressure Pulse Oximetry 100 Intake & Output 02/02/18 02/03/18 02/03/18 18:59 06:59 18:59 Intake Total 1852 / 1852 1823 / 1823 Output Total 500 / 500 600 / 600 Balance 1352 / 1352 1223 / 1223 Weight 81 kg Intake: IV 1602 / 1602 1654 / 1654 Versed Inj 50 mg In 50 ml @ 2 150 / 150 50 / 50 MG/HR 2 mls/hr IV.CONT TITRATE PRN Rx#:[id number] NS + KCl 20 mEq Inj 1,000 ML @ 1000 / 1000 1000 / 1000 100 mls/hr IV.CONT .Q10H [facility] Rx #:[id number] Diprivan 1000 mg/100 ml Inj 1, 400 / 400 300 / 300 000 mg In 100 ml @ 5 MCG/KG/MIN 2.585 mls/hr IV.CONT TITRATE PRN Rx#:[id number] Cerebyx Inj 100 MGPE In NS Inj 52 / 52 104 / 104 50 ML @ 208 mls/hr IV.SIG Q8HR [facility] Rx#:[id number] Keppra 1000 mg/100 mL Premix 200 / 200 100 ML @ 400 mls/hr IV.SIG Q12H [facility] Rx#:[id number] Tube Feeding 119 / 119 Tube Irrigant 50 / 50 Water Bolus Amount 250 / 250 Output: Urine Amount (Catheter) 500 / 500 600 / 600 Indwelling Urethral Catheter 500 / 500 600 / 600 Other: Bladder Irrigation Fluid - Amount Instilled Indwelling Urethral Catheter 50 # Bowel Movements 0 Result Diagrams: 02/03/18 03:40 02/03/18 03:40 Imaging: ITS Impressions Head CT 02/01/18 14:03 CONCLUSION: 1. Small area of decreased density involving the subinsular cortex on the right. Exact etiology is uncertain. It is poorly characterized on this exam. I cannot completely exclude an area of infarction. MRI with contrast is suggested to further assess. . Chest X-Ray 02/01/18 14:38 CONCLUSION: Clear lungs. Abdomen X-Ray 02/02/18 00:00 CONCLUSION: 1. No metallic foreign bodies identified. 2. No bowel obstruction or ileus. 3. Mild degenerative changes and scoliosis of the thoracolumbar spine. Head MRI 02/02/18 00:00 CONCLUSION: 1. Focal mostly linear signal abnormality in the subinsular region on the right correlating with recent head CT examination. This could be related to a prior infarct or trauma with remote hemorrhage with hemosiderin deposition noted on the gradient echo images. No recent infarct. No mass effect or shift. Postcontrast images reveal no abnormal enhancing lesions. Objective Remarks: GENERAL: 32-year-old male currently orotracheally intubated SKIN: Warm and dry. HEAD: Atraumatic. Normocephalic. EYES: Pupils equal and round. No scleral icterus. No injection or drainage. ENT: No nasal bleeding or discharge. Mucous membranes pink and moist. NECK: Trachea midline. No JVD. CARDIOVASCULAR: RRR. S1, S2. No S4. Without murmur RESPIRATORY: No accessory muscle use. Clear to auscultation. Breath sounds equal bilaterally. GASTROINTESTINAL: Abdomen soft, non-tender, nondistended. Hepatic and splenic margins not palpable. MUSCULOSKELETAL: Extremities without clubbing, cyanosis, or edema. No obvious deformities. NEUROLOGICAL: Sedated on the ventilator. Minimal cough and gag. Does not withdraw to pain. Pupils react bilaterally Assessment and Plan - Assessment and Plan Plan: NEURO/PSYCH: Status epilepticus Seizure disorder Noncompliance with medication THC use -Currently on propofol drip at 30 mcg/kg/min and midazolam drip at 6 mg an hour for sedation and ventilator synchrony -Lorazepam 2 mg IV q. one hour as needed for seizures -Given levetiracetam 1 g in the ED currently on 500 mg twice daily, load with fosphenytoin 1 g IV 1/currently on 100 mg every 8 hours -check phenytoin level in a.m., 12.2 -neurology consult with Dr. Alvaro romo. -CT of the brain revealed decreased diffusion insular cortex on the right. 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 Hemosiderin. -EEG revealed mild encephalopathy. No epileptiform activity. -UDS + benzos,THC RESP: Acute respiratory failure -PRVC/AC 16/550/05/23/34, head of the bed elevation -Ventilator bundle -Albuterol/ipratropium aerosols every 6 hours with albuterol aerosols every 2 hours as needed for dyspnea -SBT when appropriate, and seizures are controlled -Chest x-ray negative for acute findings CV: -Normal saline IV fluids 84 ml per hour to be changed to one half normal saline. Give additional 1 L normal saline bolus -Monitor blood pressure heart rate GI: Hypoalbuminemia -N.p.o., lansoprazole for GI prophylaxis. Docusate sodium/senna 1 tablet twice daily for bowel regimen -Continue tube feeds with Jevity Jevity 1.5 at 60 cc an hour Renal/FEN/: Acute kidney injury Hypernatremia -Monitor renal function closely. Place El catheter. -Monitor creatinine after adequate hydration ID: -No Antibiotics at this time -Blood urine and sputum cultures if indicated only HEME: Normocytic anemia -Monitor CBC, coags and follow trends ENDO: -Electrolyte replacement per protocol -Sliding scale insulin if needed PROPH: -Bilateral lower extremity SCDs. Enoxaparin/lansoprazole LINES: -Utilize peripheral IVs, central line if needed Level 2 follow-up Yesterday discussed with Sowmya Miller -mother at [phone].
[2018-02-03] MEDS: Chlorhexidine 0.12% Oral Kit 15 ML UDC OROPHARYNG SCH ×2 (09:59→20:50)
[2018-02-03] MEDS: Senna/Docusate Sodium 8.6/50 MG Tablet PO SCH ×2 (10:00→20:50)
[2018-02-03] MEDS: Polyvinyl Alcohol/Povidone PF Opth Drops 0.4 ML Dropperette EACH EYE SCH ×2 (10:00→20:51)
[2018-02-03] MEDS: Sodium Chloride 0.45 % Inj 1,000 ML IV.CONT SCH ×3 (10:47→20:54)
[2018-02-03] MEDS: Enoxaparin Inj 40 MG/0.4 ML Syringe SQ SCH (16:15)
[2018-02-04] MEDS: Propofol 1000 mg/100 ml Inj 1,000 MG/100 ML BOTTLE IV.CONT PRN ×2 (01:46→06:30)
[2018-02-04] MEDS: Chlorhexidine Gluconate 2% 1 Pack (2 Cloths) TOPICAL SCH (04:04)
[2018-02-04] MEDS: Oral Hygiene Kit OROPHARYNG SCH ×3 (04:05→23:59)
[2018-02-04] MEDS: Fosphenytoin Inj 100 MGPE in Sodium Chlor 0.9% Inj 50 ML IV.SIG SCH ×3 (05:40→22:31)
[2018-02-04] MEDS: levETIRAcetam 1000mg/100mL Inj 100 ML IV.SIG SCH ×2 (05:59→19:57)
--- NOTE | 2018-02-04 07:15 | P.PNNEU ---
Subjective Active Medications: Active Medications Acetaminophen (Tylenol) 650 mg PO Q6H PRN PRN Reason: PAIN 1-10 AND/OR FEVER >101F Al Hydroxide/Mg Hydroxide (Milk Of Isabel Morrow) 30 ml PO Q12H PRN PRN Reason: Mild Constipation Albuterol (Albuterol Neb (Prn)) 2.5 mg NEB Q2HR NEB PRN PRN Reason: DYSPNEA Albuterol (Duoneb Neb ([facility])) 1 ampul NEB Q6HR NEB [facility] Last Admin: 02/04/18 03:34 Dose: 1 ampul Artificial Tears (Refresh Classic 1.4/0.6% Pf Opth Drops) 1 drop EACH EYE BID [facility] Last Admin: 02/03/18 20:51 Dose: 1 drop Bisacodyl (Dulcolax Supp) 10 mg RECTAL DAILY PRN PRN Reason: SEVERE CONSITIPATION Chlorhexidine Gluconate (Peridex 0.12% Oral Kit) 15 ml OROPHARYNG BID@0800, 2000 [facility] Last Admin: 02/03/18 20:50 Dose: 15 ml Chlorhexidine Gluconate (Chlorhexidine 2% Cloth) 3 pack TOPICAL DAILY@0400 PRN PRN Reason: Extra cloth needed Stop: 02/07/18 03:59 Chlorhexidine Gluconate (Chlorhexidine 2% Cloth) 3 pack TOPICAL DAILY@0400 [facility] Stop: 02/07/18 03:59 Last Admin: 02/04/18 04:04 Dose: 3 pack Enoxaparin Sodium (Lovenox Inj) 40 mg SQ Q24H [facility] Last Admin: 02/03/18 16:15 Dose: 40 mg Propofol (Diprivan 1000 Mg/100 Ml Inj) 1,000 mg in 100 mls @ 2.585 mls/hr IV.CONT TITRATE PRN; Protocol PRN Reason: Per Protocol Last Admin: 02/04/18 06:30 Dose: 30 mcg/kg/min, 15.51 mls/hr Fosphenytoin Sodium 100 mgpe/ (Sodium Chloride) 52 mls @ 208 mls/hr IV.SIG Q8HR [facility] Last Infusion: 02/04/18 05:55 Dose: Infused Midazolam HCl (Versed Inj) 50 mg in 50 mls @ 2 mls/hr IV.CONT TITRATE PRN; Protocol PRN Reason: Per Protocol Last Titration: 02/03/18 18:45 Dose: 0 mg/hr, 0 mls/hr Levetiracetam (Keppra 1000 Mg/100 Ml Premix) 100 mls @ 400 mls/hr IV.SIG Q12H [facility] Last Infusion: 02/04/18 06:15 Dose: Infused Sodium Chloride (1/2 Normal Saline Inj) 1,000 mls @ 84 mls/hr IV.CONT .[id number] [facility] Last Admin: 02/03/18 20:54 Dose: 84 mls/hr Lactulose (Lactulose Liq) 30 ml PO DAILY PRN PRN Reason: SEVERE CONSITIPATION Lansoprazole (Prevacid Solutab) 30 mg NG/OG DAILY [facility] Last Admin: 02/03/18 10:00 Dose: 30 mg Lorazepam (Ativan Inj) 2 mg IV.PUSH Q1H PRN PRN Reason: SEIZURES Last Admin: 02/02/18 05:18 Dose: 2 mg Lorazepam (Ativan Inj) 2 mg IV.PUSH Q5M PRN PRN Reason: SEIZURES Senna/Docusate Sodium (Cynthia-Colace) 1 tab PO BID [facility] Last Admin: 02/03/18 20:50 Dose: 1 tab Sennosides (Senokot) 17.2 mg PO Q12H PRN PRN Reason: Moderate Constipation Sodium Chloride (Ns Flush) 2 ml IV.FLUSH BID [facility] Last Admin: 02/03/18 20:50 Dose: 2 ml Sodium Chloride (Ns Flush) 2 ml IV.FLUSH PRN PRN PRN Reason: FLUSH AFTER USING IV ACCESS Allergies/Adverse Reactions: Allergies Allergy/AdvReac Type Severity Reaction Status Date / Time No Allergy Information Allergy Unverified 02/01/18 14:03 Available Physical Exam Vital signs: Vital Signs 02/03/18 07:30 02/03/18 08:00 02/03/18 08:30 Temperature 97.7 F Pulse Rate 75 73 Respiratory Rate 16 16 16 Blood Pressure 136/84 130/83 Pulse Oximetry 100 100 100 02/03/18 08:59 02/03/18 09:00 02/03/18 09:30 Temperature Pulse Rate 71 70 70 Respiratory Rate 16 16 16 Blood Pressure 106/58 L 105/58 L Pulse Oximetry 100 100 02/03/18 10:00 02/03/18 10:30 02/03/18 11:00 Temperature Pulse Rate 65 66 66 Respiratory Rate 16 16 16 Blood Pressure 111/69 113/70 114/72 Pulse Oximetry 100 100 100 02/03/18 11:30 02/03/18 11:39 02/03/18 12:00 Temperature 98.6 F Pulse Rate 69 69 Respiratory Rate 16 16 16 Blood Pressure 120/73 118/75 Pulse Oximetry 100 100 100 02/03/18 12:30 02/03/18 13:00 02/03/18 13:30 Temperature Pulse Rate 80 67 73 Respiratory Rate 17 16 16 Blood Pressure 138/84 136/86 130/82 Pulse Oximetry 100 100 100 02/03/18 14:00 02/03/18 14:30 02/03/18 15:00 Temperature Pulse Rate 71 76 85 Respiratory Rate 16 16 14 Blood Pressure 136/87 141/91 H 137/90 Pulse Oximetry 100 100 100 02/03/18 15:28 02/03/18 15:30 02/03/18 15:31 Temperature Pulse Rate 82 89 Respiratory Rate 11 L 14 10 L Blood Pressure 141/85 H Pulse Oximetry 100 100 02/03/18 16:00 02/03/18 16:30 02/03/18 17:00 Temperature 98.9 F Pulse Rate 100 H 90 102 H Respiratory Rate 20 16 17 Blood Pressure 140/83 136/76 139/80 Pulse Oximetry 100 100 100 02/03/18 17:30 02/03/18 18:00 02/03/18 18:30 Temperature Pulse Rate 83 80 75 Respiratory Rate 16 16 16 Blood Pressure 125/70 113/66 113/65 Pulse Oximetry 100 100 100 02/03/18 19:00 02/03/18 19:20 02/03/18 19:30 Temperature Pulse Rate 72 81 Respiratory Rate 16 16 16 Blood Pressure 124/82 132/81 Pulse Oximetry 100 100 100 02/03/18 20:00 02/03/18 20:22 02/03/18 20:30 Temperature 98.6 F Pulse Rate 77 78 77 Respiratory Rate 16 16 16 Blood Pressure 127/76 114/66 Pulse Oximetry 100 100 02/03/18 21:00 02/03/18 21:30 02/03/18 22:00 Temperature Pulse Rate 74 74 76 Respiratory Rate 16 16 16 Blood Pressure 120/73 123/72 123/71 Pulse Oximetry 100 100 100 02/03/18 22:20 02/03/18 23:00 02/03/18 23:01 Temperature Pulse Rate 74 76 Respiratory Rate 16 16 16 Blood Pressure 120/76 Pulse Oximetry 100 100 100 02/03/18 23:30 02/04/18 00:00 02/04/18 00:30 Temperature 98.6 F Pulse Rate 77 72 67 Respiratory Rate 16 16 16 Blood Pressure 108/70 101/63 117/78 Pulse Oximetry 100 100 100 02/04/18 01:00 02/04/18 01:15 02/04/18 01:30 Temperature Pulse Rate 67 69 Respiratory Rate 16 17 16 Blood Pressure 114/72 112/77 Pulse Oximetry 100 100 100 02/04/18 02:00 02/04/18 02:30 02/04/18 03:00 Temperature Pulse Rate 68 71 71 Respiratory Rate 16 16 16 Blood Pressure 118/87 108/75 112/81 Pulse Oximetry 100 100 100 02/04/18 03:30 02/04/18 03:34 02/04/18 04:00 Temperature 98.1 F Pulse Rate 72 73 80 Respiratory Rate 16 16 16 Blood Pressure 118/86 126/82 Pulse Oximetry 100 100 02/04/18 04:25 02/04/18 04:30 02/04/18 05:00 Temperature Pulse Rate 86 77 Respiratory Rate 16 14 16 Blood Pressure 122/78 122/76 Pulse Oximetry 100 100 100 02/04/18 05:30 02/04/18 06:00 Temperature Pulse Rate 86 85 Respiratory Rate 15 14 Blood Pressure 122/79 121/77 Pulse Oximetry 100 100 Intake & Output 02/03/18 02/04/18 02/04/18 18:59 06:59 18:59 Intake Total 1588 / 1588 1907 / 1907 Output Total 501 / 501 700 / 700 Balance 1087 / 1087 1207 / 1207 Weight 83 kg Intake: IV 1102 / 1102 1404 / 1404 Versed Inj 50 mg In 50 ml @ 2 50 / 50 MG/HR 2 mls/hr IV.CONT TITRATE PRN Rx#:[id number] Diprivan 1000 mg/100 ml Inj 1, 100 / 100 200 / 200 000 mg In 100 ml @ 5 MCG/KG/MIN 2.585 mls/hr IV.CONT TITRATE PRN Rx#:[id number] 1/2 Normal Saline Inj 1,000 ML 1000 / 1000 @ 84 mls/hr IV.CONT .[id number] [facility] Rx#:[id number] Cerebyx Inj 100 MGPE In NS Inj 52 / 52 104 / 104 50 ML @ 208 mls/hr IV.SIG Q8HR [facility] Rx#:[id number] Keppra 1000 mg/100 mL Premix 100 / 100 100 / 100 100 ML @ 400 mls/hr IV.SIG Q12H [facility] Rx#:[id number] Tube Feeding 236 / 236 403 / 403 Tube Irrigant 100 / 100 Water Bolus Amount 250 / 250 Output: Urine Amount (Catheter) 501 / 501 700 / 700 Indwelling Urethral Catheter 501 / 501 700 / 700 Other: # Bowel Movements 0 0 Narrative: just off sedatives some purposeful movements no tremor - Urinary Catheter Management Indwelling Urethral Catheter Cath placed during this visit: yes, but has since been removed by the nurse Reason for continuing: Hourly intake/output Insertion date: 02/03/18 Insertion time: 01:05 Removal date: 02/03/18 Removal time: 01:00 Objective Laboratory Results - last 24 hr 02/01/18 02/03/18 14:15 03:40 WBC 9.1 RBC 4.35 L Hgb 12.9 L Hct 38.4 L MCV 88.3 MCH 29.7 MCHC 33.6 RDW 13.6 Plt Count 227 MPV 8.9 Prelim Diff (Auto) Slide review pending Neut % (Auto) 73.1 H Lymph % (Auto) 18.8 [place] % (Auto) 6.4 Eos % (Auto) 1.2 Baso % (Auto) 0.5 Neut # (Auto) 6.7 Lymph # (Auto) 1.7 [place] # (Auto) 0.6 Eos # (Auto) 0.1 Baso # (Auto) 0.0 WBC Differential . Diff Scan Auto diff confirmed Differential Comment . Platelet Estimate Normal Platelet Morphology Normal Levetiracetam Less than 2.0 L Review/Management - Diagnosis (1) Hypocapnemia Code(s): E87.8 - Other disorders of electrolyte and fluid balance, not elsewhere classified Status: Acute Current Visit: Yes (2) Dehydration, mild Code(s): E86.0 - Dehydration Status: Acute Current Visit: Yes - Review/Management Plan: 1. ADD KEPPRA 1000MG IV THEN 500MG IV Q 12HOUR 2. EEG 3. BRAIN MRI 2MM CUT AFTER EXTUBATED 4. SZ PRECAUTION 5. NO DRIVING IF IMPROVED 6. D/W ER MD, WILL D/W PMD, FOLLOW DR. SANCHEZ THANK YOU VERY MUCH FOR THE COURTESY OF THIS VERY KINDLY REFERRAL imp sz mult and hx of mri neg eeg yest with tremors not sz dil 12 on keppra too plan is hold sedatives and should awaken 02/04/18 plan is to hold sedatives an see if awakens today
--- NOTE | 2018-02-04 07:50 | P.PNCC ---
Subjective Subjective Remarks/Hospital Course: Patient is a 32-year-old male with seizure disorder noncompliant to medication who presented to emergency department in status epilepticus. Apparently he had 2 seizures at work, EMS was called they gave a total of 4 mg IV Versed with no response. Presented to the ED altered still seizing. Received total 4 mg IV Ativan in the emergency department without response. Patient was intubated for airway protection and status epilepticus. Postintubation was loaded with Keppra and critical care medicine was consulted. Patient was also placed on propofol infusion. He has a history of noncompliance previously had been on Dilantin currently only on Klonopin per history from his sister ED obtained. I am also told that patient was admitted to a [facility] for approximately 1 week and this was a week ago for same diagnosis of uncontrolled seizures I evaluated the patient in the emergency department. He continues to have tremulous shaking movements of the lower extremities somewhat purposefully with the right upper extremity. I bolused 50 mg IV propofol followed by 5 mg of IV Versed for control of seizures and ventilator synchrony. I have ordered loading dose of 1 g IV fosphenytoin and then will continue 100 mg IV every 8 hours. Neurology consult had been requested as well as stat EEG. Also will get a CT of the head with no contrast. Urine drug screen is pending at this time 02/02: Currently resting in bed sedated on propofol drip at 50 mcg/kg/min and midazolam drip at 10 mg an hour. Radiology recommended MRI with contrast for abnormal CT that showed decreased density in this insular cortex on the right. Noted EEG revealed left anterior temporal sharp activity possibly epileptiform activity. 02/03: Resting comfortably in bed in no acute distress. Currently weaning off propofol and midazolam drips. 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 EEG revealed no seizure activity. Tube feeds currently at 30 cc Subjective 02/04: Extubated this a.m. Currently arousable and follows commands. No new seizure activity noted. Afebrile. A.m. laboratories pending. Objective Vital Signs / I&O: Vital Signs 02/03/18 08:00 02/03/18 08:30 02/03/18 08:59 Temperature 97.7 F Pulse Rate 75 73 71 Respiratory Rate 16 16 16 Blood Pressure 136/84 130/83 Pulse Oximetry 100 100 02/03/18 09:00 02/03/18 09:30 02/03/18 10:00 Temperature Pulse Rate 70 70 65 Respiratory Rate 16 16 16 Blood Pressure 106/58 L 105/58 L 111/69 Pulse Oximetry 100 100 100 02/03/18 10:30 02/03/18 11:00 02/03/18 11:30 Temperature Pulse Rate 66 66 69 Respiratory Rate 16 16 16 Blood Pressure 113/70 114/72 120/73 Pulse Oximetry 100 100 100 02/03/18 11:39 02/03/18 12:00 02/03/18 12:30 Temperature 98.6 F Pulse Rate 69 80 Respiratory Rate 16 16 17 Blood Pressure 118/75 138/84 Pulse Oximetry 100 100 100 02/03/18 13:00 02/03/18 13:30 02/03/18 14:00 Temperature Pulse Rate 67 73 71 Respiratory Rate 16 16 16 Blood Pressure 136/86 130/82 136/87 Pulse Oximetry 100 100 100 02/03/18 14:30 02/03/18 15:00 02/03/18 15:28 Temperature Pulse Rate 76 85 82 Respiratory Rate 16 14 11 L Blood Pressure 141/91 H 137/90 Pulse Oximetry 100 100 02/03/18 15:30 02/03/18 15:31 02/03/18 16:00 Temperature 98.9 F Pulse Rate 89 100 H Respiratory Rate 14 10 L 20 Blood Pressure 141/85 H 140/83 Pulse Oximetry 100 100 100 02/03/18 16:30 02/03/18 17:00 02/03/18 17:30 Temperature Pulse Rate 90 102 H 83 Respiratory Rate 16 17 16 Blood Pressure 136/76 139/80 125/70 Pulse Oximetry 100 100 100 02/03/18 18:00 02/03/18 18:30 02/03/18 19:00 Temperature Pulse Rate 80 75 72 Respiratory Rate 16 16 16 Blood Pressure 113/66 113/65 124/82 Pulse Oximetry 100 100 100 02/03/18 19:20 02/03/18 19:30 02/03/18 20:00 Temperature 98.6 F Pulse Rate 81 77 Respiratory Rate 16 16 16 Blood Pressure 132/81 127/76 Pulse Oximetry 100 100 100 02/03/18 20:22 02/03/18 20:30 02/03/18 21:00 Temperature Pulse Rate 78 77 74 Respiratory Rate 16 16 16 Blood Pressure 114/66 120/73 Pulse Oximetry 100 100 02/03/18 21:30 02/03/18 22:00 02/03/18 22:20 Temperature Pulse Rate 74 76 Respiratory Rate 16 16 16 Blood Pressure 123/72 123/71 Pulse Oximetry 100 100 100 02/03/18 23:00 02/03/18 23:01 02/03/18 23:30 Temperature Pulse Rate 74 76 77 Respiratory Rate 16 16 16 Blood Pressure 120/76 108/70 Pulse Oximetry 100 100 100 02/04/18 00:00 02/04/18 00:30 02/04/18 01:00 Temperature 98.6 F Pulse Rate 72 67 67 Respiratory Rate 16 16 16 Blood Pressure 101/63 117/78 114/72 Pulse Oximetry 100 100 100 02/04/18 01:15 02/04/18 01:30 02/04/18 02:00 Temperature Pulse Rate 69 68 Respiratory Rate 17 16 16 Blood Pressure 112/77 118/87 Pulse Oximetry 100 100 100 02/04/18 02:30 02/04/18 03:00 02/04/18 03:30 Temperature Pulse Rate 71 71 72 Respiratory Rate 16 16 16 Blood Pressure 108/75 112/81 118/86 Pulse Oximetry 100 100 100 02/04/18 03:34 02/04/18 04:00 02/04/18 04:25 Temperature 98.1 F Pulse Rate 73 80 Respiratory Rate 16 16 16 Blood Pressure 126/82 Pulse Oximetry 100 100 02/04/18 04:30 02/04/18 05:00 02/04/18 05:30 Temperature Pulse Rate 86 77 86 Respiratory Rate 14 16 15 Blood Pressure 122/78 122/76 122/79 Pulse Oximetry 100 100 100 02/04/18 06:00 Temperature Pulse Rate 85 Respiratory Rate 14 Blood Pressure 121/77 Pulse Oximetry 100 Intake & Output 02/03/18 02/04/18 02/04/18 18:59 06:59 18:59 Intake Total 1588 / 1588 1907 / 1907 Output Total 501 / 501 700 / 700 Balance 1087 / 1087 1207 / 1207 Weight 83 kg Intake: IV 1102 / 1102 1404 / 1404 Versed Inj 50 mg In 50 ml @ 2 50 / 50 MG/HR 2 mls/hr IV.CONT TITRATE PRN Rx#:[id number] Diprivan 1000 mg/100 ml Inj 1, 100 / 100 200 / 200 000 mg In 100 ml @ 5 MCG/KG/MIN 2.585 mls/hr IV.CONT TITRATE PRN Rx#:[id number] 1/2 Normal Saline Inj 1,000 ML 1000 / 1000 @ 84 mls/hr IV.CONT .[id number] KAMAR Rx#:[id number] Cerebyx Inj 100 MGPE In NS Inj 52 / 52 104 / 104 50 ML @ 208 mls/hr IV.SIG Q8HR KAMAR Rx#:[id number] Keppra 1000 mg/100 mL Premix 100 / 100 100 / 100 100 ML @ 400 mls/hr IV.SIG Q12H KAMAR Rx#:[id number] Tube Feeding 236 / 236 403 / 403 Tube Irrigant 100 / 100 Water Bolus Amount 250 / 250 Output: Urine Amount (Catheter) 501 / 501 700 / 700 Indwelling Urethral Catheter 501 / 501 700 / 700 Other: # Bowel Movements 0 0 Result Diagrams: 02/03/18 03:40 02/03/18 03:40 Imaging: Chest X-Ray 02/01/18 14:03 CONCLUSION: 1. Exam degraded by motion artifact. 2. No gross abnormality. Head CT 02/01/18 14:03 CONCLUSION: 1. Small area of decreased density involving the subinsular cortex on the right. Exact etiology is uncertain. It is poorly characterized on this exam. I cannot completely exclude an area of infarction. MRI with contrast is suggested to further assess. . Chest X-Ray 02/01/18 14:38 CONCLUSION: Clear lungs. Abdomen X-Ray 02/02/18 00:00 CONCLUSION: 1. No metallic foreign bodies identified. 2. No bowel obstruction or ileus. 3. Mild degenerative changes and scoliosis of the thoracolumbar spine. Head MRI 02/02/18 00:00 CONCLUSION: 1. Focal mostly linear signal abnormality in the subinsular region on the right correlating with recent head CT examination. This could be related to a prior infarct or trauma with remote hemorrhage with hemosiderin deposition noted on the gradient echo images. No recent infarct. No mass effect or shift. Postcontrast images reveal no abnormal enhancing lesions. Objective Remarks: GENERAL: 32-year-old male currently resting in bed on nasal cannula in no acute distress SKIN: Warm and dry. HEAD: Atraumatic. Normocephalic. EYES: Pupils equal and round. No scleral icterus. No injection or drainage. ENT: No nasal bleeding or discharge. Mucous membranes pink and moist. NECK: Trachea midline. No JVD. CARDIOVASCULAR: RRR. S1, S2. No S4. Without murmur RESPIRATORY: No accessory muscle use. Clear to auscultation. Breath sounds equal bilaterally. GASTROINTESTINAL: Abdomen soft, non-tender, nondistended. Hepatic and splenic margins not palpable. MUSCULOSKELETAL: Extremities without clubbing, cyanosis, or edema. No obvious deformities. NEUROLOGICAL: Extubated. Moving all 4 extremities spontaneously. Follows commands. Nods voice to simple questions. Assessment and Plan - Assessment and Plan Plan: NEURO/PSYCH: Status epilepticus Seizure disorder Noncompliance with medication THC use -Given levetiracetam 1 g in the ED currently on 500 mg twice daily, load with fosphenytoin 1 g IV 1/currently on 100 mg every 8 hours -check phenytoin level in a.m., pending 02/04 -neurology consult with Dr. Alvaro romo. -CT of the brain revealed decreased diffusion insular cortex on the right. 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 Hemosiderin. -EEG 02/02 revealed mild encephalopathy. No epileptiform activity. -UDS + benzos,THC RESP: Acute respiratory failure -Extubated 02/04 -Nasal cannula to maintain saturations greater than or equal to 92% -Incentive spirometry while awake -Albuterol/ipratropium aerosols every 6 hours with albuterol aerosols every 2 hours as needed for dyspnea -Chest x-ray negative for acute findings CV: -Currently on one half normal saline. -Not requiring vasopressors and/or antihypertensives GI: Hypoalbuminemia -N.p.o., bedside swallow/speech therapy evaluate and treat -lansoprazole for GI prophylaxis. Docusate sodium/senna 1 tablet twice daily for bowel regimen Renal/FEN/: Acute kidney injury -resolved Hypernatremia -Monitor renal function closely. Remove El catheter. -Monitor creatinine after adequate hydration ID: -No Antibiotics at this time -Blood urine and sputum cultures if indicated only HEME: Normocytic anemia -Monitor CBC, coags and follow trends ENDO: -Electrolyte replacement per protocol -Sliding scale insulin if needed PROPH: -Bilateral lower extremity SCDs. Enoxaparin/lansoprazole LINES: -Utilize peripheral IVs, central line if needed Level 2 follow-up Yesterday discussed with Sowmya Miller -mother at [phone].
[2018-02-04] MEDS ORDERED: Glycerin Adult 2 GM Supp RECTAL ONE (07:53)
[2018-02-04 09:30] LABS: Baso % (Auto) 0.2 % (0.0-2.0); Eos # (Auto) 0.1 th/mm3 (0.0-0.4); Eos % (Auto) 1.2 % (0.0-4.0); Hematocrit 37.9 % (39.0-51.0); Hemoglobin 12.4 gm/dL (13.0-17.0); Lymph % (Auto) 17.2 % (9.0-44.0); Mean Corpuscular HGB Conc 32.8 % (32.0-36.0); Mean Corpuscular Hemoglobin 28.7 pg (27.0-34.0); Mean Corpuscular Volume 87.6 fL (80.0-100.0); Mean Platelet Volume 8.1 fL (7.0-11.0); Mono # (Auto) 0.7 th/mm3 (0.0-0.9); Mono % (Auto) 5.8 % (0.0-8.0); Neut % (Auto) 75.6 % (16.0-70.0); Platelet Count 237 th/mm3 (150-450); Red Blood Count 4.33 mil/mm3 (4.50-5.90); Red Cell Distribution Width 13.8 % (11.6-17.2); White Blood Count 11.8 th/mm3 (4.0-11.0)
[2018-02-04] MEDS: Senna/Docusate Sodium 8.6/50 MG Tablet PO SCH ×2 (09:39→20:03)
[2018-02-04] MEDS: Polyethylene Glycol 3350 17 GM Packet PO SCH ×2 (09:39→20:02)
[2018-02-04] MEDS: Chlorhexidine 0.12% Oral Kit 15 ML UDC OROPHARYNG SCH ×2 (09:39→19:58)
[2018-02-04] MEDS: Polyvinyl Alcohol/Povidone PF Opth Drops 0.4 ML Dropperette EACH EYE SCH ×2 (09:40→20:03)
[2018-02-04 09:57] LABS: Anion Gap 9 meq/L (5-15); Blood Urea Nitrogen 6 mg/dL (7-18); Calcium 8.4 mg/dL (8.5-10.1); Carbon Dioxide 23.9 meq/L (21.0-32.0); Chloride 114 meq/L (98-107); Glomerular Filtration Rate Greater Than 89 mL/min (>89); Glucose,Random 107 mg/dL (74-106); Potassium 3.6 meq/L (3.5-5.1); Sodium 147 meq/L (136-145)
[2018-02-04 09:59] LABS: Phenytoin (Dilantin) 12.7 mcg/mL (10.0-20.0)
[2018-02-04] MEDS: Sodium Chloride 0.45 % Inj 1,000 ML IV.CONT SCH ×2 (13:02→22:31)
[2018-02-04] MEDS: Enoxaparin Inj 40 MG/0.4 ML Syringe SQ SCH (18:03)
[2018-02-05] MEDS: Oral Hygiene Kit OROPHARYNG SCH (06:00)
[2018-02-05] MEDS: Chlorhexidine Gluconate 2% 1 Pack (2 Cloths) TOPICAL SCH (06:00)
[2018-02-05] MEDS: Fosphenytoin Inj 100 MGPE in Sodium Chlor 0.9% Inj 50 ML IV.SIG SCH (06:01)
[2018-02-05] MEDS: levETIRAcetam 1000mg/100mL Inj 100 ML IV.SIG SCH (06:06)
--- NOTE | 2018-02-05 07:41 | P.PNNEU ---
Subjective Active Medications: Active Medications Acetaminophen (Tylenol) 650 mg PO Q6H PRN PRN Reason: PAIN 1-10 AND/OR FEVER >101F Al Hydroxide/Mg Hydroxide (Milk Of Magnesia Liq) 30 ml PO Q12H PRN PRN Reason: Mild Constipation Albuterol (Albuterol Neb (Prn)) 2.5 mg NEB Q2HR NEB PRN PRN Reason: DYSPNEA Albuterol (Duoneb Neb ([facility])) 1 ampul NEB Q6HR NEB [facility] Last Admin: 02/05/18 03:46 Dose: Not Given Artificial Tears (Refresh Classic 1.4/0.6% Pf Opth Drops) [address] EYE [address] [facility] Last Admin: 02/04/18 20:03 Dose: 1 drop Bisacodyl (Dulcolax Supp) 10 mg RECTAL DAILY PRN PRN Reason: SEVERE CONSITIPATION Chlorhexidine Gluconate (Peridex 0.12% Oral Kit) 15 ml OROPHARYNG BID@0800, 2000 [facility] Last Admin: 02/04/18 19:58 Dose: 15 ml Chlorhexidine Gluconate (Chlorhexidine 2% Cloth) 3 pack TOPICAL DAILY@0400 PRN PRN Reason: Extra cloth needed Stop: 02/07/18 03:59 Chlorhexidine Gluconate (Chlorhexidine 2% Cloth) 3 pack TOPICAL DAILY@0400 [facility] Stop: 02/07/18 03:59 Last Admin: 02/05/18 06:00 Dose: 3 pack Enoxaparin Sodium (Lovenox Inj) [address] [facility] Last Admin: 02/04/18 18:03 Dose: 40 mg Fosphenytoin Sodium 100 mgpe/ (Sodium Chloride) 52 mls @ 208 mls/hr IV.SIG Q8HR [facility] Last Infusion: 02/05/18 06:31 Dose: Infused Levetiracetam (Keppra 1000 Mg/100 Ml Premix) 100 mls @ 400 mls/hr IV.SIG Q12H [facility] Last Infusion: 02/05/18 06:31 Dose: Infused Sodium Chloride (1/2 Normal Saline Inj) 1,000 mls @ 84 mls/hr IV.CONT .[id number] [facility] Last Admin: 02/04/18 22:31 Dose: 84 mls/hr Lactulose (Lactulose Liq) 30 ml PO DAILY PRN PRN Reason: SEVERE CONSITIPATION Lansoprazole (Prevacid Solutab) 30 mg NG/OG DAILY [facility] Last Admin: 02/04/18 09:39 Dose: Not Given Polyethylene Glycol (Miralax) [address] [facility] Last Admin: 02/04/18 20:02 Dose: Not Given Senna/Docusate Sodium (Cynthia-Colace) [address] [facility] Last Admin: 02/04/18 20:03 Dose: Not Given Sennosides (Senokot) 17.2 mg PO Q12H PRN PRN Reason: Moderate Constipation Sodium Chloride (Ns Flush) [address] [facility] Last Admin: 02/04/18 20:02 Dose: 2 ml Sodium Chloride (Ns Flush) 2 ml IV.FLUSH PRN PRN PRN Reason: FLUSH AFTER USING IV ACCESS Allergies/Adverse Reactions: Allergies Allergy/AdvReac Type Severity Reaction Status Date / Time No Allergy Information Allergy Unverified 02/01/18 14:03 Available Physical Exam Vital signs: Vital Signs 02/04/18 07:55 02/04/18 08:00 02/04/18 08:30 Temperature Pulse Rate 100 H 102 H Respiratory Rate 29 H 25 H Blood Pressure 133/83 121/70 Pulse Oximetry 100 96 100 02/04/18 08:49 02/04/18 09:00 02/04/18 09:30 Temperature Pulse Rate 98 H 108 H 109 H Respiratory Rate 23 27 H 28 H Blood Pressure 125/69 124/69 Pulse Oximetry 97 97 02/04/18 10:00 02/04/18 10:30 02/04/18 11:00 Temperature Pulse Rate 110 H 102 H 97 H Respiratory Rate 28 H 19 27 H Blood Pressure 117/74 121/73 129/82 Pulse Oximetry 98 99 99 02/04/18 11:30 02/04/18 12:00 02/04/18 12:31 Temperature Pulse Rate 94 H 95 H 98 H Respiratory Rate 22 23 34 H Blood Pressure 129/79 143/86 H 133/78 Pulse Oximetry 100 100 100 02/04/18 13:00 02/04/18 13:30 02/04/18 14:00 Temperature Pulse Rate 95 H 98 H 105 H Respiratory Rate 22 20 38 H Blood Pressure 133/78 146/88 H Pulse Oximetry 62 L 85 L 02/04/18 14:03 02/04/18 14:31 02/04/18 15:00 Temperature Pulse Rate 93 H 101 H 88 Respiratory Rate 32 H 28 H 16 Blood Pressure 142/89 H 170/81 H 167/88 H Pulse Oximetry 100 99 100 02/04/18 15:30 02/04/18 16:00 02/04/18 16:15 Temperature Pulse Rate 85 104 H 95 H Respiratory Rate 24 27 H 17 Blood Pressure 161/94 H 147/87 H Pulse Oximetry 100 99 02/04/18 16:30 02/04/18 17:00 02/04/18 17:01 Temperature Pulse Rate 103 H 106 H 98 H Respiratory Rate 26 H 27 H 21 Blood Pressure 153/84 H 165/85 H Pulse Oximetry 99 94 L 100 02/04/18 17:30 02/04/18 18:00 02/04/18 18:24 Temperature Pulse Rate 102 H 101 H 100 H Respiratory Rate 23 25 H 27 H Blood Pressure 173/98 H 137/76 Pulse Oximetry 94 L 90 L 02/04/18 18:31 02/04/18 19:00 02/04/18 19:38 Temperature Pulse Rate 112 H 119 H 99 H Respiratory Rate 34 H 31 H 24 Blood Pressure 171/91 H 123/76 Pulse Oximetry 02/04/18 20:00 02/04/18 21:00 02/04/18 21:30 Temperature 98.4 F Pulse Rate 97 H 89 90 Respiratory Rate 21 28 H 30 H Blood Pressure 122/72 135/94 H 122/67 Pulse Oximetry 100 97 02/04/18 22:00 02/04/18 22:30 02/04/18 22:34 Temperature Pulse Rate 83 90 81 Respiratory Rate 16 28 H 16 Blood Pressure 124/69 122/62 Pulse Oximetry 99 02/04/18 23:00 02/04/18 23:30 02/05/18 00:00 Temperature 98.1 F Pulse Rate 95 H 98 H 101 H Respiratory Rate 25 H 23 26 H Blood Pressure 127/62 130/68 118/67 Pulse Oximetry 98 95 96 02/05/18 00:30 02/05/18 01:00 02/05/18 01:01 Temperature Pulse Rate 96 H 108 H 99 H Respiratory Rate 24 26 H 33 H Blood Pressure 116/72 114/71 114/71 Pulse Oximetry 98 82 L 93 L 02/05/18 02:00 02/05/18 02:01 02/05/18 03:00 Temperature Pulse Rate 102 H 103 H 93 H Respiratory Rate 26 H 30 H 24 Blood Pressure 115/78 123/74 Pulse Oximetry 94 L 87 L 94 L 02/05/18 04:00 02/05/18 05:00 02/05/18 06:00 Temperature 98.4 F Pulse Rate 89 95 H 99 H Respiratory Rate 27 H 32 H 29 H Blood Pressure 114/60 116/69 Pulse Oximetry 93 L 91 L 90 L 02/05/18 06:01 02/05/18 07:00 Temperature Pulse Rate 104 H 89 Respiratory Rate 27 H 21 Blood Pressure 115/71 Pulse Oximetry 96 94 L Intake & Output 02/04/18 02/05/18 02/05/18 18:59 06:59 18:59 Intake Total 1152 / 1152 1304 / 1304 Output Total 900 / 900 900 / 900 Balance 252 / 252 404 / 404 Weight 78.5 kg Intake: IV 1152 / 1152 1304 / 1304 Versed Inj 50 mg In 50 ml @ 2 50 / 50 MG/HR 2 mls/hr IV.CONT TITRATE PRN Rx#:[id number] Diprivan 1000 mg/100 ml Inj 1, 0 / 0 000 mg In 100 ml @ 5 MCG/KG/MIN 2.585 mls/hr IV.CONT TITRATE PRN Rx#:[id number] 1/2 Normal Saline Inj 1,000 ML 1000 / 1000 1000 / 1000 @ 84 mls/hr IV.CONT .[id number] [facility] Rx#:[id number] Cerebyx Inj 100 MGPE In NS Inj 52 / 52 104 / 104 50 ML @ 208 mls/hr IV.SIG Q8HR [facility] Rx#:[id number] Keppra 1000 mg/100 mL Premix 200 / 200 100 ML @ 400 mls/hr IV.SIG Q12H [facility] Rx#:[id number] Output: Urine 900 / 900 900 / 900 Other: # Bowel Movements 0 Narrative: awake alert speech little slow oriented vff face sym 5/5 bue and ble - Urinary Catheter Management Indwelling Urethral Catheter Cath placed during this visit: yes, but has since been removed by the nurse Reason for continuing: Hourly intake/output Insertion date: 02/03/18 Insertion time: 01:05 Removal date: 02/03/18 Removal time: 01:00 Objective Laboratory Results - last 24 hr 02/04/18 02/04/18 02/04/18 09:02 09:02 09:02 WBC 11.8 H RBC 4.33 L Hgb 12.4 L Hct 37.9 L MCV 87.6 MCH 28.7 MCHC 32.8 RDW 13.8 Plt Count 237 MPV 8.1 Neut % (Auto) 75.6 H Lymph % (Auto) 17.2 Yell % (Auto) 5.8 Eos % (Auto) 1.2 Baso % (Auto) 0.2 Neut # (Auto) 9.0 H Lymph # (Auto) 2.0 Yell # (Auto) 0.7 Eos # (Auto) 0.1 Baso # (Auto) 0.0 WBC Differential . Differential Comment Auto diff final Sodium 147 H Potassium 3.6 Chloride 114 H Carbon Dioxide 23.9 Anion Gap 9 BUN 6 L Creatinine 0.84 Estimated GFR Greater than 89 Random Glucose 107 H Calcium 8.4 L Phenytoin 12.7 12.7 Review/Management - Diagnosis (1) Hypocapnemia Code(s): E87.8 - Other disorders of electrolyte and fluid balance, not elsewhere classified Status: Acute Current Visit: Yes (2) Dehydration, mild Code(s): E86.0 - Dehydration Status: Acute Current Visit: Yes - Review/Management Plan: 1. ADD KEPPRA 1000MG IV THEN 500MG IV Q 12HOUR 2. EEG 3. BRAIN MRI 2MM CUT AFTER EXTUBATED 4. SZ PRECAUTION 5. NO DRIVING IF IMPROVED 6. D/W ER MD, WILL D/W PMD, FOLLOW DR. SANCHEZ THANK YOU VERY MUCH FOR THE COURTESY OF THIS VERY KINDLY REFERRAL imp sz mult and hx of mri neg eeg yest with tremors not sz dil 12 on keppra too plan is hold sedatives and should awaken 02/04/18 plan is to hold sedatives an see if awakens today 02/05/18 much mandy has job but lives in [facility] sister in [facility] can we get him housing assistance? he has been on dilantin but with situation unlikley to get labs on this and not good retirement med for him so i dced and continue on keppra 1000mg po bid have delinquency prevention social worker see if he can get low income housing ow ok to dc on keppra hx head injury explains r abn on mri
[2018-02-05 08:12] LABS: Baso % (Auto) 0.4 % (0.0-2.0); Eos # (Auto) 0.2 th/mm3 (0.0-0.4); Eos % (Auto) 1.7 % (0.0-4.0); Hematocrit 38.8 % (39.0-51.0); Hemoglobin 12.8 gm/dL (13.0-17.0); Lymph # (Auto) 1.9 th/mm3 (1.0-4.8); Lymph % (Auto) 20.3 % (9.0-44.0); Mean Corpuscular HGB Conc 32.9 % (32.0-36.0); Mean Platelet Volume 7.7 fL (7.0-11.0); Mono # (Auto) 0.6 th/mm3 (0.0-0.9); Mono % (Auto) 6.8 % (0.0-8.0); Neut # (Auto) 6.7 th/mm3 (1.8-7.7); Neut % (Auto) 70.8 % (16.0-70.0); Platelet Count 258 th/mm3 (150-450); Red Blood Count 4.41 mil/mm3 (4.50-5.90); Red Cell Distribution Width 13.2 % (11.6-17.2); White Blood Count 9.5 th/mm3 (4.0-11.0)
[2018-02-05 08:36] LABS: Anion Gap 10 meq/L (5-15); Blood Urea Nitrogen 5 mg/dL (7-18); Calcium 8.7 mg/dL (8.5-10.1); Carbon Dioxide 25.3 meq/L (21.0-32.0); Chloride 109 meq/L (98-107); Glomerular Filtration Rate Greater Than 89 mL/min (>89); Glucose,Random 90 mg/dL (74-106); Magnesium 1.7 mg/dL (1.5-2.5); Phosphorus 3.3 mg/dL (2.5-4.9); Potassium 3.4 meq/L (3.5-5.1); Sodium 144 meq/L (136-145)
--- NOTE | 2018-02-05 09:21 | P.DS ---
Date of admission: 02/01/18 15:28 Primary care physician: UNKNOWN Attending physician on discharge: Dominic Murray Anticipated date of discharge: 02/05/18 Brief History from admission: Patient is a 32-year-old male with seizure disorder noncompliant to medication who presented to emergency department in status epilepticus. Apparently he had 2 seizures at work, EMS was called they gave a total of 4 mg IV Versed with no response. Presented to the ED altered still seizing. Received total 4 mg IV Ativan in the emergency department without response. Patient was intubated for airway protection and status epilepticus. Postintubation was loaded with Keppra and critical care medicine was consulted. Patient was also placed on propofol infusion. He has a history of noncompliance previously had been on Dilantin currently only on Klonopin per history from his sister ED obtained. I am also told that patient was admitted to [facility] for approximately 1 week and this was a week ago for same diagnosis of uncontrolled seizures I evaluated the patient in the emergency department. He continues to have tremulous shaking movements of the lower extremities somewhat purposefully with the right upper extremity. I bolused 50 mg IV propofol followed by 5 mg of IV Versed for control of seizures and ventilator synchrony. I have ordered loading dose of 1 g IV fosphenytoin and then will continue 100 mg IV every 8 hours. Neurology consult had been requested as well as stat EEG. Also will get a CT of the head with no contrast. Urine drug screen is pending at this time Patient update on day of discharge: Patient extubated without complication. Patient has financial issues so we will send him on Dilantin 100 twice daily with follow-up with to be arranged by social care. Discussed with mother. We will introduce low income housing patient. DS: Diagnosis - Discharge Diagnosis (1) Seizure Status: Acute DS: Summary Hospital Course: Patient is a 32-year-old male with seizure disorder noncompliant to medication who presented to emergency department in status epilepticus. Apparently he had 2 seizures at work, : We will with you EMS was called they gave a total of 4 mg IV Versed with no response. Presented to the ED altered still seizing. Received total 4 mg IV Ativan in the emergency department without response. Patient was intubated for airway protection and status epilepticus. Postintubation was loaded with Keppra and critical care medicine was consulted. Patient was also placed on propofol infusion. He has a history of noncompliance previously had been on Dilantin currently only on Klonopin per history from his sister ED obtained. I am also told that patient was admitted to a [facility] for approximately 1 week and this was a week ago for same diagnosis of uncontrolled seizures I evaluated the patient in the emergency department. He continues to have tremulous shaking movements of the lower extremities somewhat purposefully with the right upper extremity. I bolused 50 mg IV propofol followed by 5 mg of IV Versed for control of seizures and ventilator synchrony. I have ordered loading dose of 1 g IV fosphenytoin and then will continue 100 mg IV every 8 hours. Neurology consult had been requested as well as stat EEG. Also will get a CT of the head with no contrast. Urine drug screen is pending at this time 02/02: Currently resting in bed sedated on propofol drip at 50 mcg/kg/min and midazolam drip at 10 mg an hour. Radiology recommended MRI with contrast for abnormal CT that showed decreased density in this insular cortex on the right. Noted EEG revealed left anterior temporal sharp activity possibly epileptiform activity. 02/03: Resting comfortably in bed in no acute distress. Currently weaning off propofol and midazolam drips. 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 EEG revealed no seizure activity. Tube feeds currently at 30 cc 02/04: Extubated this a.m. Currently arousable and follows commands. No new seizure activity noted. Afebrile. A.m. laboratories pending. Subjective 02/05: Resting in bed in no acute distress. Attempting to set up home prescriptions of phenytoin in follow-up. - Time Spent with Patient Total time spent providing and/or coordinating discharge services: Less than 30 minutes - Quality: VTE Deep Vein Thrombosis/Pulmonary Embolism Present on Admission: No Exam Vital signs: Vital Signs 02/04/18 09:30 02/04/18 10:00 02/04/18 10:30 Temperature Pulse Rate 109 H 110 H 102 H Respiratory Rate 28 H 28 H 19 Blood Pressure 124/69 117/74 121/73 Pulse Oximetry 97 98 99 02/04/18 11:00 02/04/18 11:30 02/04/18 12:00 Temperature Pulse Rate 97 H 94 H 95 H Respiratory Rate 27 H 22 23 Blood Pressure 129/82 129/79 143/86 H Pulse Oximetry 99 100 100 02/04/18 12:31 02/04/18 13:00 02/04/18 13:30 Temperature Pulse Rate 98 H 95 H 98 H Respiratory Rate 34 H 22 20 Blood Pressure 133/78 133/78 146/88 H Pulse Oximetry 100 62 L 02/04/18 14:00 02/04/18 14:03 02/04/18 14:31 Temperature Pulse Rate 105 H 93 H 101 H Respiratory Rate 38 H 32 H 28 H Blood Pressure 142/89 H 170/81 H Pulse Oximetry 85 L 100 99 02/04/18 15:00 02/04/18 15:30 02/04/18 16:00 Temperature Pulse Rate 88 85 104 H Respiratory Rate 16 24 27 H Blood Pressure 167/88 H 161/94 H 147/87 H Pulse Oximetry 100 100 99 02/04/18 16:15 02/04/18 16:30 02/04/18 17:00 Temperature Pulse Rate 95 H 103 H 106 H Respiratory Rate 17 26 H 27 H Blood Pressure 153/84 H Pulse Oximetry 99 94 L 02/04/18 17:01 02/04/18 17:30 02/04/18 18:00 Temperature Pulse Rate 98 H 102 H 101 H Respiratory Rate 21 23 25 H Blood Pressure 165/85 H 173/98 H Pulse Oximetry 100 94 L 90 L 02/04/18 18:24 02/04/18 18:31 02/04/18 19:00 Temperature Pulse Rate 100 H 112 H 119 H Respiratory Rate 27 H 34 H 31 H Blood Pressure 137/76 171/91 H Pulse Oximetry 02/04/18 19:38 02/04/18 20:00 02/04/18 21:00 Temperature 98.4 F Pulse Rate 99 H 97 H 89 Respiratory Rate 24 21 28 H Blood Pressure 123/76 122/72 135/94 H Pulse Oximetry 100 97 02/04/18 21:30 02/04/18 22:00 02/04/18 22:30 Temperature Pulse Rate 90 83 90 Respiratory Rate 30 H 16 28 H Blood Pressure 122/67 124/69 122/62 Pulse Oximetry 02/04/18 22:34 02/04/18 23:00 02/04/18 23:30 Temperature Pulse Rate 81 95 H 98 H Respiratory Rate 16 25 H 23 Blood Pressure 127/62 130/68 Pulse Oximetry 99 98 95 02/05/18 00:00 02/05/18 00:30 02/05/18 01:00 Temperature 98.1 F Pulse Rate 101 H 96 H 108 H Respiratory Rate 26 H 24 26 H Blood Pressure 118/67 116/72 114/71 Pulse Oximetry 96 98 82 L 02/05/18 01:01 02/05/18 02:00 02/05/18 02:01 Temperature Pulse Rate 99 H 102 H 103 H Respiratory Rate 33 H 26 H 30 H Blood Pressure 114/71 115/78 Pulse Oximetry 93 L 94 L 87 L 02/05/18 03:00 02/05/18 04:00 02/05/18 05:00 Temperature 98.4 F Pulse Rate 93 H 89 95 H Respiratory Rate 24 27 H 32 H Blood Pressure 123/74 114/60 116/69 Pulse Oximetry 94 L 93 L 91 L 02/05/18 06:00 02/05/18 06:01 02/05/18 07:00 Temperature Pulse Rate 99 H 104 H 89 Respiratory Rate 29 H 27 H 21 Blood Pressure 115/71 Pulse Oximetry 90 L 96 94 L 02/05/18 08:11 Temperature Pulse Rate 93 H Respiratory Rate 14 Blood Pressure Pulse Oximetry 98 Intake & Output 02/04/18 02/05/18 02/05/18 18:59 06:59 18:59 Intake Total 1152 / 1152 1304 / 1304 Output Total 900 / 900 900 / 900 Balance 252 / 252 404 / 404 Weight 78.5 kg Intake: IV 1152 / 1152 1304 / 1304 Versed Inj 50 mg In 50 ml @ 2 50 / 50 MG/HR 2 mls/hr IV.CONT TITRATE PRN Rx#:[id number] Diprivan 1000 mg/100 ml Inj 1, 0 / 0 000 mg In 100 ml @ 5 MCG/KG/MIN 2.585 mls/hr IV.CONT TITRATE PRN Rx#:[id number] 1/2 Normal Saline Inj 1,000 ML 1000 / 1000 1000 / 1000 @ 84 mls/hr IV.CONT .[id number] [facility] Rx#:[id number] Cerebyx Inj 100 MGPE In NS Inj 52 / 52 104 / 104 50 ML @ 208 mls/hr IV.SIG Q8HR [facility] Rx#:[id number] Keppra 1000 mg/100 mL Premix 200 / 200 100 ML @ 400 mls/hr IV.SIG Q12H [facility] Rx#:[id number] Output: Urine 900 / 900 900 / 900 Other: # Bowel Movements 0 - Constitutional no acute distress - Routine HEENT Exam Head: Present: normocephalic, atraumatic Eye: Present: EOMI, PERRL, normal accommodation ENT: Present: mucous membranes moist - Routine Neck Exam Present: supple, full ROM - Routine Chest/Breast/Axilla Exam Chest wall: Absent: tenderness Breast: Absent: tenderness Axillae: Absent: lymphadenopathy - Routine Respiratory Exam Present: CTA bilaterally. Absent: accessory muscle use - Routine Cardiovascular Exam Present: RRR, S1, S2. Absent: murmur - Routine Abdominal Exam Present: soft, normoactive bowel sounds - Routine Extremities Exam Absent: cyanosis, clubbing, edema - Routine Skin Exam Present: intact - Routine Neurological Exam Present: alert, oriented X3, CN II-XII intact Results Procedures completed during hospitalization: EEG Consultation neurology Completed studies during hospitalization: EEG -no epileptic activity last EEG per read from Dr. Mcrae Pending studies at discharge: None Labs on day of discharge: Labs from last 24 hours 02/05/18 02/05/18 02/04/18 07:56 07:56 09:02 WBC 9.5 RBC 4.41 L Hgb 12.8 L Hct 38.8 L MCV 88.0 MCH 29.0 MCHC 32.9 RDW 13.2 Plt Count 258 MPV 7.7 Neut % (Auto) 70.8 H Lymph % (Auto) 20.3 [place] % (Auto) 6.8 Eos % (Auto) 1.7 Baso % (Auto) 0.4 Neut # (Auto) 6.7 Lymph # (Auto) 1.9 [place] # (Auto) 0.6 Eos # (Auto) 0.2 Baso # (Auto) 0.0 WBC Differential . Differential Comment Auto diff final Sodium 144 Potassium 3.4 L Chloride 109 H Carbon Dioxide 25.3 Anion Gap 10 BUN 5 L Creatinine 0.68 Estimated GFR Greater than 89 Random Glucose 90 Calcium 8.7 Phosphorus 3.3 Magnesium 1.7 Phenytoin 12.7 02/04/18 02/04/18 09:02 09:02 WBC 11.8 H RBC 4.33 L Hgb 12.4 L Hct 37.9 L MCV 87.6 MCH 28.7 MCHC 32.8 RDW 13.8 Plt Count 237 MPV 8.1 Neut % (Auto) 75.6 H Lymph % (Auto) 17.2 [place] % (Auto) 5.8 Eos % (Auto) 1.2 Baso % (Auto) 0.2 Neut # (Auto) 9.0 H Lymph # (Auto) 2.0 [place] # (Auto) 0.7 Eos # (Auto) 0.1 Baso # (Auto) 0.0 WBC Differential . Differential Comment Auto diff final Sodium 147 H Potassium 3.6 Chloride 114 H Carbon Dioxide 23.9 Anion Gap 9 BUN 6 L Creatinine 0.84 Estimated GFR Greater than 89 Random Glucose 107 H Calcium 8.4 L Phosphorus Magnesium Phenytoin 12.7 - Impressions ITS Impressions Head CT 02/01/18 14:03 CONCLUSION: 1. Small area of decreased density involving the subinsular cortex on the right. Exact etiology is uncertain. It is poorly characterized on this exam. I cannot completely exclude an area of infarction. MRI with contrast is suggested to further assess. . Chest X-Ray 02/01/18 14:38 CONCLUSION: Clear lungs. Abdomen X-Ray 02/02/18 00:00 CONCLUSION: 1. No metallic foreign bodies identified. 2. No bowel obstruction or ileus. 3. Mild degenerative changes and scoliosis of the thoracolumbar spine. Head MRI 02/02/18 00:00 CONCLUSION: 1. Focal mostly linear signal abnormality in the subinsular region on the right correlating with recent head CT examination. This could be related to a prior infarct or trauma with remote hemorrhage with hemosiderin deposition noted on the gradient echo images. No recent infarct. No mass effect or shift. Postcontrast images reveal no abnormal enhancing lesions. Discharge Plan - Discharge Disposition Patient Disposition: 01 Discharge Home - Discharge Condition Condition: Stable - Discharge Order Discharge Orders: Discharge Order (Routine); Ordered 02/05/18 Ordered By: Brown Koehler - Discharge Details Anticipated Discharge Date: 02/05/18 - Physicians Team Primary Care Provider: UNKNOWN, Attending Provider: Maryann Guan Other Providers: Gunner John MD
[2018-02-05] MEDS: Polyethylene Glycol 3350 17 GM Packet PO SCH (09:33)
[2018-02-05] MEDS: Sodium Chloride 0.45 % Inj 1,000 ML IV.CONT SCH (09:33)
[2018-02-05] MEDS: Polyvinyl Alcohol/Povidone PF Opth Drops 0.4 ML Dropperette EACH EYE SCH (09:34)
[2018-02-05] MEDS: Senna/Docusate Sodium 8.6/50 MG Tablet PO SCH (09:34)
[2018-02-05 09:39] VITALS: BP 118/74; TEMP 98
[2018-02-05] MEDS: Chlorhexidine 0.12% Oral Kit 15 ML UDC OROPHARYNG SCH (09:41)
[2018-02-05] MEDS ORDERED: Phenytoin Sodium 100 MG Capsule PO SCH (10:00)
[2018-02-05 12:42] VITALS: PULSE 91; RESP 24; O2SAT 93
[2018-02-05] MEDS ORDERED: levETIRAcetam 500 MG Tablet PO SCH (21:00)
== END 2018-02-05 12:30 | disposition home or self-care (01) ==
LOC: NEPE 14:00 → NEDA 15:28 → HIMC 15:55
PROVIDERS: ADMIT Internal Medicine; ATTEND Internal Medicine

== ENCOUNTER 2018-07-06 19:30 | Inpatient (IN) ==
[2018-07-06 20:04] LABS: Baso % (Auto) 0.3 % (0.0-2.0); Eos # (Auto) 0.1 th/mm3 (0.0-0.4); Eos % (Auto) 1.2 % (0.0-4.0); Hematocrit 40.3 % (39.0-51.0); Hemoglobin 13.7 gm/dL (13.0-17.0); Lymph # (Auto) 2.2 th/mm3 (1.0-4.8); Lymph % (Auto) 20.8 % (9.0-44.0); Mean Corpuscular HGB Conc 34.1 % (32.0-36.0); Mean Corpuscular Hemoglobin 30.5 pg (27.0-34.0); Mean Corpuscular Volume 89.2 fL (80.0-100.0); Mean Platelet Volume 6.8 fL (7.0-11.0); Mono # (Auto) 0.5 th/mm3 (0.0-0.9); Mono % (Auto) 4.5 % (0.0-8.0); Neut # (Auto) 7.9 th/mm3 (1.8-7.7); Neut % (Auto) 73.2 % (16.0-70.0); Platelet Count 306 th/mm3 (150-450); Red Blood Count 4.51 mil/mm3 (4.50-5.90); Red Cell Distribution Width 13.5 % (11.6-17.2); White Blood Count 10.7 th/mm3 (4.0-11.0)
[2018-07-06] MEDS ORDERED: levETIRAcetam 1000mg/100mL Inj 100 ML IV.SIG ONE (20:10)
[2018-07-06] MEDS ORDERED: Etomidate Inj 40 MG/20 ML Vial IV.PUSH ONE (20:18)
[2018-07-06 20:23] LABS: Albumin 3.7 g/dL (3.4-5.0); Anion Gap 8 meq/L (5-15); Aspartate Aminotransferase 15 U/L (15-37); Blood Urea Nitrogen 16 mg/dL (7-18); Calcium 8.4 mg/dL (8.5-10.1); Carbon Dioxide 27.6 meq/L (21.0-32.0); Chloride 106 meq/L (98-107); Glomerular Filtration Rate 86 mL/min (>89); Glucose,Random 105 mg/dL (74-106); Magnesium 2.4 mg/dL (1.5-2.5); Potassium 3.8 meq/L (3.5-5.1); Sodium 142 meq/L (136-145)
[2018-07-06 20:24] LABS: Alanine Aminotransferase 25 U/L (12-78); Phosphorus 4.1 mg/dL (2.5-4.9)
[2018-07-06] MEDS ORDERED: Etomidate Inj 20 MG/10 ML Ampul IV.PUSH ONE (20:25)
[2018-07-06] MEDS ORDERED: Propofol 1000 mg/100 ml Inj 1,000 MG/100 ML BOTTLE IV.CONT PRN (20:25)
[2018-07-06 20:26] LABS: Alkaline Phosphatase 96 U/L (45-117); Total Protein 7.4 g/dL (6.4-8.2)
--- NOTE | 2018-07-06 20:49 | XR ---
EXAM DATE: 07/06/2018 8:45 PM EST AGE/SEX: 32 years / Male INDICATIONS: Post intubation. CLINICAL DATA: This is the patient's initial encounter. Patient reports that signs and symptoms have been present for 1 day and indicates a pain score of Nonresponsive. MEDICAL/SURGICAL HISTORY: Non-responsive. Non-responsive. COMPARISON: [facility] [place], CHEST 1V SINGLE AP, 02/01/2018. . FINDINGS: Endotracheal tube tip terminates 1.2 cm above the sil. NG tube coiled in stomach. Lungs are clear. Osseous structures demonstrate remote left-sided rib fractures. CONCLUSION: ET tube as above. Electronically signed by: Adrian Ibarra MD Board Certified Radiologist 07/06/2018 8:48 PM EST
--- NOTE | 2018-07-06 20:58 | CT ---
EXAM DATE: 07/06/2018 8:50 PM EST AGE/SEX: 32 years / Male INDICATIONS: Seizure. Two witnessed seizures. CLINICAL DATA: This is the patient's initial encounter. Patient reports that signs and symptoms have been present for 1 day and indicates a pain score of Nonresponsive. MEDICAL/SURGICAL HISTORY: . Epilepsia. Traumatic brain injury. None. RADIATION DOSE: 37.98 CTDI (mGy) COMPARISON: [facility] [place], [place] HEAD W & W/O CONTRAST, 02/02/2018. . TECHNIQUE: CT of the head without contrast. Using automated exposure control and adjustment of the mA and/or kV according to patient size, radiation dose was kept as low as reasonably achievable to ob tain optimal diagnostic quality images. DICOM format image data is available electronically for revi ew and comparison. FINDINGS: Cerebrum: The ventricles are normal for age. No evidence of midline shift, mass lesion, hemorrhage or acute infarction. No extraaxial fluid collections are seen. Posterior Fossa: The cerebellum and brainstem are intact. The 4th ventricle is midline. The cerebe llopontine angle is unremarkable. Extracranial: The visualized portion of the orbits is intact. Skull: The calvaria is intact. No evidence of skull fracture. CONCLUSION: 1. Negative CT Head non contrast. . . Electronically signed by: Adrian Ibarra MD Board Certified Radiologist 07/06/2018 8:57 PM EST
[2018-07-06] MEDS ORDERED: Midazolam 100 MG/100 ML Inj 100 MG/100 ML BAG IV.CONT ONE (21:15)
--- NOTE | 2018-07-06 21:15 | XR ---
EXAM DATE: 07/06/2018 9:11 PM EST AGE/SEX: 32 years / Male INDICATIONS: Intubation change. CLINICAL DATA: This is the patient's initial encounter. Patient reports that signs and symptoms have been present for 1 day and indicates a pain score of Nonresponsive. MEDICAL/SURGICAL HISTORY: Non-responsive. Non-responsive. COMPARISON: [facility], CHEST 1V SINGLE AP, 07/06/2018. . FINDINGS: Endotracheal tube in good position. NG coiled in stomach. No focal consolidation or significant effus ion. No pneumothorax. CONCLUSION: Endotracheal tube and nasogastric tube in the. No focal infiltrate. Electronically signed by: Jerman Thibodeaux MD Board Certified Radiologist 07/06/2018 9:14 PM EST
[2018-07-06] MEDS ORDERED: Acetaminophen 325 MG Tablet PO PRN (21:17)
[2018-07-06] MEDS ORDERED: Bisacodyl 10 MG Supp RECTAL PRN (21:17)
--- NOTE | 2018-07-06 21:20 | ED ---
HPI General Chief complaint: Seizure Stated complaint: SEIZURE COMPLAINT Time Seen by Provider: 07/06/18 19:35 Source: EMS Mode of arrival: EMS Limitations: altered mental status History of Present Illness HPI narrative: Patient is a 32 year old male brought in by EMS due to seizures. Patient has a history of TBI and seizures. He has been admitted for status epilepticus multiple times before. Per EMS, he was witnessed to have a seizure at home. He had two more seizures with EMS and was given a total of 4mg of Versed. Patient is postictal/drowsy on arrival, unable to provide history. Related Data Home Medications Medication Instructions Recorded Confirmed phenytoin sodium extended 500 mg PO BID 02/19/18 07/06/18 Allergies Allergy/AdvReac Type Severity Reaction Status Date / Time No Allergy Information Allergy Verified 04/13/18 14:13 Available Review of Systems ROS Unobtainable ROS Unobtainable: unobtainable due to mental status PMFSH Medical History Medical History Epilepsia (Acute) TBI (traumatic brain injury) (Acute) Social History Social History Substance History: Active Abuse Second Hand Smoke Exposure: Yes Smoking Status: Heavy tobacco smoker Tobacco Type: Cigarettes How Often Do You Have a Drink Containing Alcohol: Never Immunization History Tetanus Immunization: Unsure Exam Narrative Exam Narrative: GENERAL: Drowsy, appears post-ictal. SKIN: Focused skin assessment warm/dry. Abrasion to the right side of the forehead. HEAD: Atraumatic. Normocephalic. EYES: Pupils equal and round and reactive. No scleral icterus. ENT: No nasal bleeding or discharge. Mucous membranes pink and moist. NECK: Trachea midline. No JVD. CARDIOVASCULAR: Regular rate and rhythm. No murmur appreciated. RESPIRATORY: No accessory muscle use. Clear to auscultation. Breath sounds equal bilaterally. GASTROINTESTINAL: Abdomen soft, non-tender, nondistended. MUSCULOSKELETAL: No obvious deformities. No clubbing. No cyanosis. No edema. NEUROLOGICAL: Postictal. Moves all of his extremities. Procedures Intubation Time Out Performed: Yes Sedative: etomidate Mg Given: 20 Paralytic: rocuronium Mg Given: 70 Laryngoscope: Trish ET Tube Size: 8 ET Tube Uncuffed: Yes Tube Secured Depth (cm): 23 Tube Secured Location: lips Tube Placement Confirmation: visualized tube passing through cords, equal breath sounds bilaterally, no breath sounds over epigastrium and confirmation by capnometry Patient Tolerated Procedure: well and no complications Course Initial Documented Vital Signs Temperature 97.8 F 07/06/18 19:34 Pulse Rate 108 H 07/06/18 19:34 Respiratory Rate 18 07/06/18 19:34 Blood Pressure 131/80 07/06/18 19:34 Pulse Oximetry 96 07/06/18 19:34 Last Documented Vital Signs Temperature 97.8 F 07/06/18 19:34 Pulse Rate 115 H 07/06/18 20:49 Respiratory Rate 24 07/06/18 20:49 Blood Pressure 187/78 H 07/06/18 20:49 Pulse Oximetry 100 07/06/18 20:49 Critical Care Time Critical Care Time: Yes Total Critical Care Time: 35 Attestation: Aggregate critical care time was 35 minutes. Time to perform other separately billable procedures was not included in the critical care time. My time did not include minutes spent treating any other patients simultaneously or on activities that did not directly contribute to the patient's treatment. The services I provided to this patient were to treat and/or prevent clinically significant deterioration that could result in: Serious illness or I provided critical care services requiring my management, as noted below: Chart data review, documentation time, medication orders and management, vital sign assessments/reviewing monitor data, ordering and reviewing lab tests, ordering and interpreting/reviewing x-rays and diagnostic studies, care of the patient and discussion of the patient with the admitting physicians. Medical Decision Making MDM Narrative Medical decision making narrative: Patient is a 32 year old male who comes in after having 3 seizures today. Patient is post-ictal/drowsy on arrival. He was witnessed to seize again in the ED. Seizure not responsive to Ativan and he vomited twice. Decision made to intubate the patient for airway protection. He was given Keppra and Cerebyx. Started on Propofol and Versed added. I spoke with Dr. Ballard of neurology who agrees with this plan. CT head performed shows no acute abnormalities. Patient admitted for further management. Medical Screen Exam Complete: Yes Emergency Medical Condition: Yes Differential Diagnosis Differential Diagnosis: Status epilepticus versus dehydration versus electrolyte abnormality Medical Records Medical records reviewed: Yes I reviewed the patient's medical records. Lab Data Lab results reviewed: Yes I reviewed the patient's lab results. Result diagrams: 07/06/18 19:50 07/06/18 19:50 Lab Results 07/06/18 07/06/18 07/06/18 Range/Units 19:38 19:50 19:50 WBC 10.7 (4.0-11.0) th/mm3 RBC 4.51 (4.50-5.90) mil/mm3 Hgb 13.7 (13.0-17.0) gm/dL Hct 40.3 (39.0-51.0) % MCV 89.2 (80.0-100.0) fL MCH 30.5 (27.0-34.0) pg MCHC 34.1 (32.0-36.0) % RDW 13.5 (11.6-17.2) % Plt Count 306 (150-450) th/mm3 MPV 6.8 L (7.0-11.0) fL Neut % (Auto) 73.2 H (16.0-70.0) % Lymph % (Auto) 20.8 (9.0-44.0) % [place] % (Auto) 4.5 (0.0-8.0) % Eos % (Auto) 1.2 (0.0-4.0) % Baso % (Auto) 0.3 (0.0-2.0) % Neut # (Auto) 7.9 H (1.8-7.7) th/mm3 Lymph # (Auto) 2.2 (1.0-4.8) th/mm3 [place] # (Auto) 0.5 (0.0-0.9) th/mm3 Eos # (Auto) 0.1 (0.0-0.4) th/mm3 Baso # (Auto) 0.0 (0.0-0.2) th/mm3 WBC Differential . Differential Comment Auto diff final Sodium 142 (136-145) meq/L Potassium 3.8 (3.5-5.1) meq/L Chloride 106 (98-107) meq/L Carbon Dioxide 27.6 (21.0-32.0) meq/L Anion Gap 8 (5-15) meq/L BUN 16 (7-18) mg/dL Creatinine 1.00 (0.60-1.30) mg/dL Estimated GFR 86 L (>89) mL/min POC Glucose 118 H (68-110) mg/dl Random Glucose 105 (74-106) mg/dL Calcium 8.4 L (8.5-10.1) mg/dL Phosphorus 4.1 (2.5-4.9) mg/dL Magnesium 2.4 (1.5-2.5) mg/dL Total Bilirubin 0.2 (0.2-1.0) mg/dL AST 15 (15-37) U/L ALT 25 (12-78) U/L Alkaline Phosphatase 96 (45-117) U/L Total Protein 7.4 (6.4-8.2) g/dL Albumin 3.7 (3.4-5.0) g/dL Phenytoin 5.0 L (10.0-20.0) mcg/mL Imaging Data Radiologist's impression: Head CT 07/06/18 19:39 CONCLUSION: 1. Negative CT Head non contrast. . . Chest X-Ray 07/06/18 20:25 CONCLUSION: ET tube as above. Chest X-Ray 07/06/18 21:00 CONCLUSION: Endotracheal tube and nasogastric tube in the. No focal infiltrate. ECG Data EKG Prior to Arrival: No Attestation: I personally reviewed and interpreted this ECG as follows: Interpretation: ECG shows sinus tachycardia at a rate of 104, no ST elevation or depression, normal intervals Discharge Plan Discharge Disposition Patient Disposition: ED Admit(ED Internal Use Only) Discharge Condition Condition: Fair Discharge Order Discharge Orders: ED Use Only Admit Order (Routine); Ordered 07/06/18 Ordered By: Aurea Viveros Discharge Details Diagnosis: Status epilepticus Physicians Team ED Provider: Aurea Viveros Primary Care Provider: Primary Care Akila Menchaca Attending Provider: Brown Koehler ED Status: Admitted Patient
[2018-07-06] MEDS: Fosphenytoin Inj 1,000 MGPE in Sodium Chlor 0.9% Inj 50 ML IV.SIG ONE ×2 (21:23→21:34)
[2018-07-06] MEDS: Midazolam 100 MG/100 ML Inj 100 MG/100 ML BAG IV.CONT PRN (21:23)
[2018-07-06] MEDS: Sod Chloride 0.9% Inj 1,000 ML IV.CONT SCH (21:24)
[2018-07-06] MEDS: Fosphenytoin Inj 500 MGPE in Sodium Chlor 0.9% Inj 50 ML IV.SIG ONE ×2 (21:30→21:39)
[2018-07-06 21:48] LABS: Alanine Aminotransferase 23 U/L (12-78); Albumin 3.7 g/dL (3.4-5.0); Aspartate Aminotransferase 16 U/L (15-37)
[2018-07-06] MEDS ORDERED: Dextrose 50% in Water 50 ML Vial IV.PUSH PRN (21:48)
[2018-07-06 21:51] LABS: Alkaline Phosphatase 94 U/L (45-117); Total Protein 7.4 g/dL (6.4-8.2)
[2018-07-06] MEDS ORDERED: Magnesium Sulfate Inj 4 GM in Sodium Chlor 0.9% Inj 92 ML IV.SIG PRN (21:51)
[2018-07-06] MEDS ORDERED: Potassium Chlor 20 mEq Premix 20 MEQ/100 ML PIGGYBACK IV.SIG PRN ×2 (21:51)
[2018-07-06] MEDS ORDERED: Magnesium Oxide 400 MG Tablet PO PRN (21:51)
[2018-07-06] MEDS ORDERED: Potassium Phosphate Inj 30 MMOL in Sodium Chlor 0.9% Inj 250 ML IV.SIG PRN (21:51)
[2018-07-06] MEDS ORDERED: Potassium Chloride Liq 20 MEQ/15 ML UDC PO PRN ×2 (21:51)
[2018-07-06] MEDS ORDERED: Potassium Phosphate 500 MG Soluble Tablet PO PRN ×2 (21:51)
[2018-07-06] MEDS ORDERED: Magnesium Sulfate Inj 2 GM in Sodium Chlor 0.9% Inj 96 ML IV.SIG PRN (21:51)
[2018-07-06] MEDS ORDERED: Sodium Phosphate Inj 30 MMOL in Sodium Chlor 0.9% Inj 250 ML IV.SIG PRN (21:51)
[2018-07-06] MEDS ORDERED: Potassium Chlor 40 mEq Premix 40 MEQ/100 ML PIGGYBACK IV.SIG PRN ×2 (21:51)
--- NOTE | 2018-07-06 22:00 | P.HPCC ---
History of Present Illness Service: Critical care medicine Primary Care Physician: No Primary Care Physician Chief Complaint: Status epilepticus History of Present Illness: This is a 32-year-old male. Date of admission 07/06/2018. Past medical history includes traumatic brain injury and seizure disorder. Patient presents to [facility] via EMS per records with altered mental status/ seizure. Patient had 2 witnessed seizures at home and in route. Patient received a total of 8 mg of lorazepam in route to [facility] and in the emergency department.. Patient became nauseous and was emergently intubated using 20 mg etomidate and 70 mg rocuronium by the ED physician. Dr. Ballard/ neurology was consulted. Recommended 1 g of levetiracetam and 500 mg of fosphenytoin as phenytoin level was 5.0. Patient is currently on midazolam drip at 10 mg an hour propofol drip at 50 frankie grams per kilogram per minute. Urine tox screen along with MRI brain currently pending. - Diagnosis (1) Acute respiratory failure (2) Status epilepticus Inpatient Certification: I certify that the inpatient services were ordered in accordance with Medicare regulations governing the order. This includes certification that hospital inpatient services are reasonable and necessary and in the case of services not specified as inpatient-only under 42 CFR 419.22(n), that they are appropriately provided as inpatient services in accordance to with the 2-midnight benchmark under 43 CFR 412.3(e) Estimated Total Length of Stay (Days): 5 Plans for Post Hospital Care: Not yet determined Review of Systems unobtainable due to endotracheal tube PMFSH - History History Provided By: [employer] / EMT - Medical History Medical History: Medical History (Last Updated 07/06/18 @ 22:06 by Brown Koehler MD) Epilepsia TBI (traumatic brain injury) - Surgical History Surgical History: Surgical History (Last Updated 07/06/18 @ 22:06 by Brown Koehler MD) Surgical history unknown - Family History Family History: Family History (Last Updated 07/06/18 @ 22:06 by Brown Koehler MD) Other Family history non-contributory - Social History I have reviewed the patient's Social History: Yes - Tobacco History Second Hand Smoke Exposure: Yes Tobacco Use In Past 30 Days: Yes Smoking Status: Heavy tobacco smoker Tobacco Type: Cigarettes - Alcohol History How Often Do You Have a Drink Containing Alcohol: Never - Substance Use History Substance History: Active Abuse - Immunization History Tetanus Immunization: Unsure Medications and Allergies Active Medications: Active Medications Acetaminophen (Tylenol) 650 mg PO Q6H PRN PRN Reason: PAIN 1-10 AND/OR FEVER >101F Al Hydroxide/Mg Hydroxide (Milk Of Isabel Liq) 30 ml PO Q12H PRN PRN Reason: Mild Constipation Albuterol (Albuterol Neb (Prn)) 2.5 mg NEB Q2HR NEB PRN PRN Reason: DYSPNEA Albuterol (Duoneb Neb (Asim)) 1 ampul NEB Q6HR NEB ASIM Artificial Tears (Tears Naturale Opth Drops) 1 drop EACH EYE Q8H [facility] Bisacodyl (Dulcolax Supp) 10 mg RECTAL DAILY PRN PRN Reason: SEVERE CONSITIPATION Chlorhexidine Gluconate (Chlorhexidine 2% Cloth) 3 pack TOPICAL DAILY@0400 ASIM Stop: 07/12/18 03:59 Chlorhexidine Gluconate (Chlorhexidine 2% Cloth) 3 pack TOPICAL DAILY@0400 PRN PRN Reason: Extra cloth needed Stop: 07/12/18 03:59 Chlorhexidine Gluconate (Peridex 0.12% Oral Kit) 15 ml OROPHARYNG BID@0800, 2000 [facility] Dextrose (D50w Vial) 50 ml IV.PUSH UNSCH PRN PRN Reason: PER HYPOGLYCEMIA PROTOCOL Glucagon (Glucagon Inj) 1 mg OTHER PRN PRN PRN Reason: for Hypoglycemia Protocol Heparin Sodium (Porcine) (Heparin Inj) 5,000 units SQ Q12H [facility] Midazolam HCl (Versed Inj) 100 mg in 100 mls @ 2 mls/hr IV.CONT TITRATE PRN; Protocol PRN Reason: See protocol Last Titration: 07/06/18 21:38 Dose: 7 mg/hr, 7 mls/hr Sodium Chloride (Ns Inj) 1,000 mls @ 84 mls/hr IV.CONT .[id number] [facility] Last Admin: 07/06/18 21:24 Dose: 84 mls/hr Propofol (Diprivan 1000 Mg/100 Ml Inj) 1,000 mg in 100 mls @ 2.381 mls/hr IV.CONT TITRATE PRN; Protocol PRN Reason: Per Protocol Fosphenytoin Sodium 200 mgpe/ (Sodium Chloride) 54 mls @ 216 mls/hr IV.SIG Q12HR ASIM Levetiracetam (Keppra 1000 Mg/100 Ml Premix) 100 mls @ 400 mls/hr IV.SIG Q12H ASIM Magnesium Sulfate 4 gm/ Sodium (Chloride) 100 mls @ 50 mls/hr IV.SIG UNSCH PRN PRN Reason: For Magnesium 0.9 - 1.1 mg/dL Potassium Chloride (Kcl 40 Meq Premix Inj) 40 meq in 100 mls @ 25 mls/hr IV.SIG Q2H PRN PRN Reason: For Potassium 2.8 - 3.2 mEq/L Potassium Chloride (Kcl 20 Meq Premix Inj) 20 meq in 100 mls @ 50 mls/hr IV.SIG Q2H PRN PRN Reason: For Potassium 3.3 - 3.5 mEq/L Potassium Chloride (Kcl 40 Meq Premix Inj) 40 meq in 100 mls @ 25 mls/hr IV.SIG UNSCH PRN PRN Reason: For Potassium 3.3 - 3.5 mEq/L Potassium Chloride (Kcl 20 Meq Premix Inj) 20 meq in 100 mls @ 50 mls/hr IV.SIG Q2H PRN PRN Reason: For Potassium 2.8 - 3.2 mEq/L Potassium Phosphate 30 mmol/ (Sodium Chloride) 260 mls @ 42 mls/hr IV.SIG UNSCH PRN PRN Reason: SEE LABEL COMMENTS Sodium Phosphate 30 mmol/ (Sodium Chloride) 260 mls @ 42 mls/hr IV.SIG UNSCH PRN PRN Reason: For Phosphorus < 2.5 mg/dL Magnesium Sulfate 2 gm/ Sodium (Chloride) 100 mls @ 50 mls/hr IV.SIG UNSCH PRN PRN Reason: For Magnesium 1.2 - 1.6 mg/dL Insulin Aspart (Novolog Insulin Correctional Sugar Inj) 0 unit SQ Q6HR ASIM; Protocol Lactulose (Lactulose Liq) 30 ml PO DAILY PRN PRN Reason: SEVERE CONSITIPATION Magnesium Oxide (Mag-Ox) 800 mg PO UNSCH PRN PRN Reason: For Magnesium 1.2 - 1.6 mg/dL Miscellaneous Medication () 1 each OROPHARYNG 0000,0400,1200,1600 ASIM Ondansetron HCl (Zofran Inj) 4 mg IV.PUSH Q6H PRN PRN Reason: NAUSEA OR VOMITING Pantoprazole Sodium (Protonix Inj) 40 mg IV.PUSH Q24H ASIM Potassium Chloride (Kcl Liq) 40 meq PO UNSCH PRN PRN Reason: Potassium level 3.3-3.5 mEq/L Potassium Chloride (Kcl Liq) 40 meq PO UNSCH PRN PRN Reason: POTASSIUM LESS THAN 3.5 Potassium Phosphate (K-Phos Original) 2,000 mg PO Q4H PRN PRN Reason: Phosphorus Less Than 2.5 mg/dL Potassium Phosphate (K-Phos Original) 2,000 mg PO UNSCH PRN PRN Reason: SEE LABEL COMMENTS Senna/Docusate Sodium (Cynthia-Colace) 1 tab PO BID ASIM Sennosides (Senokot) 17.2 mg PO Q12H PRN PRN Reason: Moderate Constipation Sodium Chloride (Ns Flush) 2 ml IV.FLUSH PRN PRN PRN Reason: FLUSH AFTER USING IV ACCESS Sodium Chloride (Ns Flush) 2 ml IV.FLUSH BID ASIM Sodium Chloride (Ns Flush) 2 ml IV.FLUSH PRN PRN PRN Reason: FLUSH AFTER USING IV ACCESS Allergies Allergy/AdvReac Type Severity Reaction Status Date / Time No Allergy Information Allergy Verified 04/13/18 14:13 Available Home Medications Medication Instructions Recorded Confirmed Type phenytoin sodium extended 500 mg PO BID 02/19/18 07/06/18 History Results - Labs CBC & Chem 7: 07/06/18 19:50 07/06/18 19:50 Labs: Short CBC 07/06/18 Range/Units 19:50 WBC 10.7 (4.0-11.0) th/mm3 Hgb 13.7 (13.0-17.0) gm/dL Hct 40.3 (39.0-51.0) % Plt Count 306 (150-450) th/mm3 [facility] 07/06/18 19:50 Sodium 142 Potassium 3.8 Chloride 106 Carbon Dioxide 27.6 BUN 16 Creatinine 1.00 Calcium 8.4 L Liver Function 07/06/18 07/06/18 Range/Units 19:50 19:50 Total Bilirubin 0.2 (0.2-1.0) mg/dL Direct Bilirubin 0.1 (0.0-0.2) mg/dL AST 15 16 (15-37) U/L ALT 25 23 (12-78) U/L Alkaline Phosphatase 96 (45-117) U/L Albumin 3.7 3.7 (3.4-5.0) g/dL - Imaging Impressions Head CT 07/06/18 19:39 CONCLUSION: 1. Negative CT Head non contrast. . . Chest X-Ray 07/06/18 20:25 CONCLUSION: ET tube as above. Chest X-Ray 07/06/18 21:00 CONCLUSION: Endotracheal tube and nasogastric tube in the. No focal infiltrate. Exam Vital signs: Vital Signs 07/06/18 19:34 07/06/18 19:53 07/06/18 20:49 Temperature 97.8 F Pulse Rate 108 H 115 H Respiratory Rate 18 24 Blood Pressure 131/80 187/78 H Pulse Oximetry 96 98 100 07/06/18 21:40 Temperature 98.1 F Pulse Rate 99 H Respiratory Rate 20 Blood Pressure 127/70 Pulse Oximetry 99 Intake & Output 07/06/18 07/06/18 07/07/18 06:59 18:59 06:59 Intake Total 1420 / 1420 Output Total 150 / 150 Balance 1270 / 1270 Weight 79.379 kg Intake: IV 170 / 170 Cerebyx Inj 1,000 MGPE In NS 70 / 70 Inj 50 ML @ 280 mls/hr IV.SIG ONCE ONE Rx#:[id number] Keppra 1000 mg/100 mL Premix 100 / 100 100 ML @ 400 mls/hr IV.SIG ONCE ONE Rx#:[id number] Other 1250 / 1250 Output: Urine 150 / 150 Other: Other Intake Source Saline Solution - Constitutional no acute distress - Routine HEENT Exam Head: Present: normocephalic, atraumatic Eye: Present: EOMI, PERRL, normal accommodation ENT: Present: mucous membranes moist - Routine Neck Exam Present: supple, full ROM. Absent: JVD - Routine Chest/Breast/Axilla Exam Chest wall: Absent: tenderness Breast: Absent: tenderness Axillae: Absent: lymphadenopathy - Routine Respiratory Exam Present: patient mechanically ventilated, decreased breath sounds, crackles. Absent: accessory muscle use - Routine Cardiovascular Exam Present: RRR, S1, S2. Absent: murmur - Routine Abdominal Exam Present: soft, normoactive bowel sounds - Routine Extremities Exam Absent: cyanosis, clubbing, edema - Routine Skin Exam Present: intact - Routine Neurological Exam Present: CN II-XII intact, sensory deficit. Absent: alert, oriented X3 Septic Shock Reassessment Septic shock perfusion: reassessment completed Caprini VTE Risk Assessment Caprini VTE Risk Assessment: Moderate/High Risk (score >= 2) Caprini Risk Assessment Model: Point Value = 1 Point Value = 2 Point Value = 3 Point Value = 5 Age 41-60 Minor surgery BMI > 25 kg/m2 Swollen legs Varicose veins or History of unexplained or recurrent spontaneous Oral contraceptives or hormone replacement Sepsis (< 1 month) Serious lung disease, including pneumonia (< 1 month) Abnormal pulmonary function Acute myocardial infarction Congestive heart failure (< 1 month) History of inflammatory bowel disease Medical patient at bed rest Age 61-74 Arthroscopic surgery Major open surgery (> 45 min) Laparoscopic surgery (> 45 min) Malignancy Confined to bed (> 72 hours) Immobilizing plaster cast Central venous access Age >= 75 History of VTE Family history of VTE Factor V Leiden Prothrombin [id number] Lupus anticoagulant Anticardiolipin antibodies Elevated serum homocysteine Heparin-induced thrombocytopenia Other congenital or acquired thrombophilia Stroke (< 1 month) Elective arthroplasty Hip, pelvis, or leg fracture Acute spinal cord injury (< 1 month) Prophylaxis Regimen: Total Risk Factor Score Risk Level Prophylaxis Regimen 0-1 Low Early ambulation 2 Moderate Order ONE of the following: *Sequential Compression Device (SCD) *Heparin 5000 units SQ BID 3-4 Higher Order ONE of the following medications: *Heparin 5000 units SQ TID *Enoxaparin/Lovenox 40 mg SQ daily (WT < 150 kg, CrCl > 30 mL/min) *Enoxaparin/Lovenox 30 mg SQ daily (WT < 150 kg, CrCl > 10-29 mL/min) *Enoxaparin/Lovenox 30 mg SQ BID (WT < 150 kg, CrCl > 30 mL/min) AND/OR *Sequential Compression Device (SCD) 5 or more Highest Order ONE of the following medications: *Heparin 5000 units SQ TID (Preferred with Epidurals) *Enoxaparin/Lovenox 40 mg SQ daily (WT < 150 kg, CrCl > 30 mL/min) *Enoxaparin/Lovenox 30 mg SQ daily (WT < 150 kg, CrCl > 10-29 mL/min) *Enoxaparin/Lovenox 30 mg SQ BID (WT < 150 kg, CrCl > 30 mL/min) AND *Sequential Compression Device (SCD) Assessment and Plan - Problem List (1) Acute respiratory failure Code(s): J96.00 - Acute respiratory failure, unspecified whether with hypoxia or hypercapnia Status: Acute (2) Status epilepticus Code(s): G40.901 - Epilepsy, unspecified, not intractable, with status epilepticus Status: Acute - Assessment and Plan Plan: NEURO/PSYCH: Status epilepticus Seizure disorder Noncompliance with medication THC use -Currently on propofol/fentanyl drip for sedation/analgesia while intubated -Goal of RASS -2 -Daily sedation vacation -Given levetiracetam 1 g in the ED currently on 1000 mg twice daily, load with fosphenytoin 500 milligrams IV 1/currently on 200 mg every 12 hours -check phenytoin level in a.m., 07/07 -neurology consult with Dr. Elio romo. -MRI brain ordered -EEG ordered [facility]P: [facility]. Ventilator bundle Albuterol/ipratropium aerosols every 6 hours with albuterol aerosols every 2 hours as needed dyspnea Spontaneous breathing trials when clinically indicated -Chest x-ray negative for acute findings post intubation. ABG pending CV: -Currently on 84 cc an hour. -Not requiring vasopressors and/or antihypertensives GI: Hypoalbuminemia -N.p.o., -Pantoprazole for GI prophylaxis. Docusate sodium/senna 1 tablet twice daily for bowel regimen Renal/FEN/: -Monitor renal function closely. Straight catheterization as needed. -Monitor creatinine after adequate hydration ID: -No Antibiotics at this time -Blood urine and sputum cultures if indicated only HEME: -Monitor CBC, coags and follow trends ENDO: -Electrolyte replacement per protocol -Sliding scale insulin if needed PROPH: -Bilateral lower extremity SCDs. Heparin/pantoprazole LINES: -Utilize peripheral IVs, central line if needed Level 3 admission Code Status: Full code Discussed Condition With: ED physician. Family not available. Care plan discussed and all questions answered (1) Acute respiratory failure Qualifiers: Respiratory failure complication: unspecified whether with hypoxia or hypercapnia Qualified Code(s): J96.00 - Acute respiratory failure, unspecified whether with hypoxia or hypercapnia
[2018-07-06 22:01] LABS: Creatine Kinase 95 U/L (39-308)
[2018-07-06 22:14] LABS: ABG Base Excess 4.1 mmol/L (-2-2); ABG PCO2 49 mmHg (38-42); ABG PO2 536 mmHg (61-120)
[2018-07-06] MEDS: Heparin - SQ 10,000 UNITS/ML Vial SQ SCH (23:36)
[2018-07-06] MEDS: levETIRAcetam 1000mg/100mL Inj 100 ML IV.SIG SCH (23:37)
[2018-07-06] MEDS: Propofol 1000 mg/100 ml Inj 1,000 MG/100 ML BOTTLE IV.CONT PRN (23:37)
[2018-07-06] MEDS: Pantoprazole Inj 40 MG Vial IV.PUSH SCH (23:37)
[2018-07-06 23:58] LABS: Amphetamine Screen,Urine Neg (Neg); Barbiturate Screen,Urine Neg (Neg); Cannabinoid Screen,Urine Pos (Neg); Cocaine Screen,Urine Neg (Neg)
[2018-07-07 00:11] LABS: Opiate Screen,Urine Neg (Neg)
[2018-07-07] MEDS: Artificial Tears Opth Drops 15 ML Bottle EACH EYE SCH ×4 (00:38→21:58)
[2018-07-07] MEDS: Insulin NovoLOG Aspart Correctional Sugar Inj SQ SCH ×5 (01:14→23:58)
[2018-07-07] MEDS: Oral Hygiene Kit OROPHARYNG SCH ×5 (01:15→23:58)
[2018-07-07] MEDS: Midazolam 100 MG/100 ML Inj 100 MG/100 ML BAG IV.CONT PRN ×3 (01:15→17:42)
[2018-07-07] MEDS: Propofol 1000 mg/100 ml Inj 1,000 MG/100 ML BOTTLE IV.CONT PRN ×5 (03:50→23:55)
[2018-07-07] MEDS ORDERED: Chlorhexidine Gluconate 2% 1 Pack (2 Cloths) TOPICAL PRN (04:00)
[2018-07-07] MEDS: Chlorhexidine Gluconate 2% 1 Pack (2 Cloths) TOPICAL SCH (04:16)
[2018-07-07 06:31] LABS: Baso % (Auto) 0.2 % (0.0-2.0); Eos # (Auto) 0.1 th/mm3 (0.0-0.4); Eos % (Auto) 0.6 % (0.0-4.0); Hematocrit 37.8 % (39.0-51.0); Hemoglobin 12.9 gm/dL (13.0-17.0); Lymph # (Auto) 2.1 th/mm3 (1.0-4.8); Lymph % (Auto) 19.2 % (9.0-44.0); Mean Corpuscular HGB Conc 34.1 % (32.0-36.0); Mean Corpuscular Hemoglobin 30.1 pg (27.0-34.0); Mean Corpuscular Volume 88.3 fL (80.0-100.0); Mean Platelet Volume 6.5 fL (7.0-11.0); Mono # (Auto) 0.4 th/mm3 (0.0-0.9); Mono % (Auto) 3.6 % (0.0-8.0); Neut # (Auto) 8.3 th/mm3 (1.8-7.7); Neut % (Auto) 76.4 % (16.0-70.0); Platelet Count 262 th/mm3 (150-450); Red Blood Count 4.28 mil/mm3 (4.50-5.90); Red Cell Distribution Width 13.6 % (11.6-17.2); White Blood Count 10.8 th/mm3 (4.0-11.0)
[2018-07-07 06:42] LABS: Activated Partial Thrombo Time 25.9 sec (23.4-31.7); INR 1.1 Ratio; Prothrombin Time 10.7 sec (9.8-11.6)
[2018-07-07 07:12] LABS: Alanine Aminotransferase 19 U/L (12-78); Albumin 3.1 g/dL (3.4-5.0); Alkaline Phosphatase 79 U/L (45-117); Anion Gap 5 meq/L (5-15); Aspartate Aminotransferase 15 U/L (15-37); Blood Urea Nitrogen 15 mg/dL (7-18); Calcium 7.7 mg/dL (8.5-10.1); Carbon Dioxide 30.1 meq/L (21.0-32.0); Chloride 109 meq/L (98-107); Glomerular Filtration Rate Greater Than 89 mL/min (>89); Glucose,Random 114 mg/dL (74-106); Magnesium 2.3 mg/dL (1.5-2.5); Phenytoin (Dilantin) 12.4 mcg/mL (10.0-20.0); Phosphorus 3.9 mg/dL (2.5-4.9); Potassium 3.7 meq/L (3.5-5.1); Sodium 144 meq/L (136-145); Total Protein 6.1 g/dL (6.4-8.2)
[2018-07-07] MEDS: Fosphenytoin Inj 200 MGPE in Sodium Chlor 0.9% Inj 50 ML IV.SIG SCH ×2 (08:30→21:51)
[2018-07-07] MEDS: Chlorhexidine 0.12% Oral Kit 15 ML UDC OROPHARYNG SCH ×2 (08:30→20:22)
[2018-07-07] MEDS: Senna/Docusate Sodium 8.6/50 MG Tablet PO SCH ×2 (08:31→20:21)
--- NOTE | 2018-07-07 09:47 | P.PNCC ---
Subjective Subjective Remarks/Hospital Course: 07/07: The patient remains sedated and intubated on Versed 15 mg/hr and Propofol 50 mcgs/kg/hr infusion, currently at RASS -3. Currently EEG in progress. Objective Vital Signs / I&O: Vital Signs 07/06/18 19:34 07/06/18 19:53 07/06/18 20:00 Temperature 97.8 F Pulse Rate 108 H 94 H Respiratory Rate 18 18 Blood Pressure 131/80 143/81 H Pulse Oximetry 96 98 98 07/06/18 20:49 07/06/18 21:00 07/06/18 21:40 Temperature 98.1 F Pulse Rate 115 H 110 H 99 H Respiratory Rate 24 22 20 Blood Pressure 187/78 H 136/87 127/70 Pulse Oximetry 100 99 99 07/06/18 22:00 07/06/18 22:27 07/06/18 22:45 Temperature 98.3 F Pulse Rate 114 H 98 H Respiratory Rate 18 22 18 Blood Pressure 137/70 116/57 L Pulse Oximetry 99 100 99 07/06/18 22:51 07/06/18 23:00 07/06/18 23:01 Temperature Pulse Rate 113 H Respiratory Rate 20 16 Blood Pressure Pulse Oximetry 100 99 07/06/18 23:14 07/07/18 00:00 07/07/18 01:00 Temperature 99.4 F 98.7 F Pulse Rate 96 H 90 99 H Respiratory Rate 16 16 16 Blood Pressure 130/62 130/62 103/58 L Pulse Oximetry 99 99 99 07/07/18 02:00 07/07/18 02:53 07/07/18 03:00 Temperature Pulse Rate 100 H 99 H 101 H Respiratory Rate 16 16 16 Blood Pressure 114/68 131/77 Pulse Oximetry 99 07/07/18 04:00 07/07/18 04:03 07/07/18 05:00 Temperature 100.3 F H Pulse Rate 101 H 97 H Respiratory Rate 16 16 16 Blood Pressure 131/68 101/57 L Pulse Oximetry 97 98 97 07/07/18 06:00 07/07/18 07:00 07/07/18 08:00 Temperature Pulse Rate 94 H 92 H Respiratory Rate 16 17 16 Blood Pressure 103/56 L Pulse Oximetry 97 98 Intake & Output 07/06/18 07/07/18 07/07/18 18:59 06:59 18:59 Intake Total 1820 / 1820 1004.2 / 1004.2 Output Total 550 / 550 Balance 1270 / 1270 1004.2 / 1004.2 Weight 73 kg Intake: IV 570 / 570 1004.2 / 1004.2 Versed Inj 100 mg In 100 ml @ 2 100 / 100 100.0 / 100.0 MG/HR 2 mls/hr IV.CONT TITRATE PRN Rx#:[id number] Diprivan 1000 mg/100 ml Inj 1, 200 / 200 101.2 / 101.2 000 mg In 100 ml @ 5 MCG/KG/MIN 2.381 mls/hr IV.CONT TITRATE PRN Rx#:[id number] NS Inj 1,000 ML @ 84 mls/hr IV. 803 / 803 CONT .[id number] KAMRA Rx#:[id number] Cerebyx Inj 1,000 MGPE In NS 70 / 70 Inj 50 ML @ 280 mls/hr IV.SIG ONCE ONE Rx#:[id number] Keppra 1000 mg/100 mL Premix 200 / 200 100 ML @ 400 mls/hr IV.SIG Q12H [facility] Rx#:[id number] Oral 0 / 0 Other 1250 / 1250 Output: Urine 150 / 150 Urine Amount (Catheter) 350 / 350 Indwelling Urethral Catheter 350 / 350 Gastric Drainage 50 / 50 Orogastric Tube 50 / 50 Other: Other Intake Source Saline Solution # Bowel Movements 0 Weight On Admission 72 kg Result Diagrams: 07/07/18 06:18 07/07/18 06:18 Other Results: Laboratory Results WBC 10.8 th/mm3 (4.0-11.0) 07/07/18 06:18 RBC 4.28 mil/mm3 (4.50-5.90) L 07/07/18 06:18 Hgb 12.9 gm/dL (13.0-17.0) L 07/07/18 06:18 Hct 37.8 % (39.0-51.0) L 07/07/18 06:18 MCV 88.3 fL (80.0-100.0) 07/07/18 06:18 MCH 30.1 pg (27.0-34.0) 07/07/18 06:18 MCHC 34.1 % (32.0-36.0) 07/07/18 06:18 RDW 13.6 % (11.6-17.2) 07/07/18 06:18 Plt Count 262 th/mm3 (150-450) 07/07/18 06:18 MPV 6.5 fL (7.0-11.0) L 07/07/18 06:18 Neut % (Auto) 76.4 % (16.0-70.0) H 07/07/18 06:18 Lymph % (Auto) 19.2 % (9.0-44.0) 07/07/18 06:18 Bucks % (Auto) 3.6 % (0.0-8.0) 07/07/18 06:18 Eos % (Auto) 0.6 % (0.0-4.0) 07/07/18 06:18 Baso % (Auto) 0.2 % (0.0-2.0) 07/07/18 06:18 Neut # (Auto) 8.3 th/mm3 (1.8-7.7) H 07/07/18 06:18 Lymph # (Auto) 2.1 th/mm3 (1.0-4.8) 07/07/18 06:18 Bucks # (Auto) 0.4 th/mm3 (0.0-0.9) 07/07/18 06:18 Eos # (Auto) 0.1 th/mm3 (0.0-0.4) 07/07/18 06:18 Baso # (Auto) 0.0 th/mm3 (0.0-0.2) 07/07/18 06:18 WBC Differential . 07/07/18 06:18 Differential Comment Auto diff final 07/07/18 06:18 PT 10.7 sec (9.8-11.6) 07/07/18 06:18 INR 1.1 Ratio 07/07/18 06:18 APTT 25.9 sec (23.4-31.7) 07/07/18 06:18 Puncture Site Right radial 07/06/18 22:09 Patient Temperature 98.6 07/06/18 22:09 O2 Saturation 98 % (90-100) 07/06/18 22:09 ABG pH 7.39 (7.380-7.420) 07/06/18 22:09 ABG pCO2 49 mmHg (38-42) H 07/06/18 22:09 ABG pO2 536 mmHg (61-120) H 07/06/18 22:09 ABG HCO3 29 mmol/L (22-26) H 07/06/18 22:09 ABG O2 Content 19.2 Vol % (12.0-20.0) 07/06/18 22:09 ABG Base Excess 4.1 mmol/L (-2-2) H 07/06/18 22:09 ABG Methemoglobin 0.8 % (0-2) 07/06/18 22:09 Javier Test Present 07/06/18 22:09 Hemoglobin 13.0 G/DL (12.0-16.0) 07/06/18 22:09 Carboxyhemoglobin 1.7 % (0-4) 07/06/18 22:09 O2 Delivery Device Ventilator 07/06/18 22:09 Vent Setting Prvc/16/550/1.1/+8 07/06/18 22:09 Inspired O2 100 % 07/06/18 22:09 Critical Value No 07/06/18 22:09 Sodium 144 meq/L (136-145) 07/07/18 06:18 Potassium 3.7 meq/L (3.5-5.1) 07/07/18 06:18 Chloride 109 meq/L (98-107) H 07/07/18 06:18 Carbon Dioxide 30.1 meq/L (21.0-32.0) 07/07/18 06:18 Anion Gap 5 meq/L (5-15) 07/07/18 06:18 BUN 15 mg/dL (7-18) 07/07/18 06:18 Creatinine 0.88 mg/dL (0.60-1.30) 07/07/18 06:18 Estimated GFR Greater than 89 mL/min (>89) 07/07/18 06:18 POC Glucose 119 mg/dl (68-110) H 07/07/18 06:23 Random Glucose 114 mg/dL (74-106) H 07/07/18 06:18 Calcium 7.7 mg/dL (8.5-10.1) L 07/07/18 06:18 Phosphorus 3.9 mg/dL (2.5-4.9) 07/07/18 06:18 Magnesium 2.3 mg/dL (1.5-2.5) 07/07/18 06:18 Total Bilirubin 0.3 mg/dL (0.2-1.0) 07/07/18 06:18 Direct Bilirubin 0.1 mg/dL (0.0-0.2) 07/06/18 19:50 Indirect Bilirubin 0.1 mg/dL (0.0-0.8) 07/06/18 19:50 AST 15 U/L (15-37) 07/07/18 06:18 ALT 19 U/L (12-78) 07/07/18 06:18 Alkaline Phosphatase 79 U/L (45-117) 07/07/18 06:18 Ammonia 37 mcmol/L (11-32) H 07/07/18 06:18 Total Creatine Kinase 95 U/L (39-308) 07/06/18 19:50 Troponin I Less than 0.02 ng/mL (0.02-0.05) L 07/07/18 06:18 Total Protein 6.1 g/dL (6.4-8.2) L D 07/07/18 06:18 Albumin 3.1 g/dL (3.4-5.0) L D 07/07/18 06:18 TSH 9.610 uIU/mL (0.358-3.740) H 07/06/18 19:50 Nasal Screen MRSA (PCR) Not detected (Negative) 07/06/18 22:55 Urine Opiates Screen Neg (Neg) 07/06/18 23:30 Ur Barbiturates Screen Neg (Neg) 07/06/18 23:30 Phenytoin 12.4 mcg/mL (10.0-20.0) 07/07/18 06:18 Ur Amphetamines Screen Neg (Neg) 07/06/18 23:30 U Benzodiazepines Scrn Pos (Neg) H 07/06/18 23:30 Urine Cocaine Screen Neg (Neg) 07/06/18 23:30 U Cannabinoids Screen Pos (Neg) H 07/06/18 23:[address] 07/06/18 19:39 CONCLUSION: 1. Negative CT Head non contrast. . . Chest X-Ray 07/06/18 21:00 CONCLUSION: Endotracheal tube and nasogastric tube in the. No focal infiltrate. Objective Remarks: GENERAL: Is a well-developed well-nourished male currently intubated and sedated SKIN: Warm and dry. HEAD: Atraumatic. Normocephalic. EYES: Pupils equal and round. No scleral icterus. No injection or drainage. ENT: No nasal bleeding or discharge. Mucous membranes pink and moist. NECK: Trachea midline. No JVD. CARDIOVASCULAR: Normal rate, regular rhythm. RESPIRATORY: No accessory muscle use. Clear to auscultation. Breath sounds equal bilaterally. GASTROINTESTINAL: Abdomen soft, non-tender, nondistended. No guarding. MUSCULOSKELETAL: Extremities without clubbing, cyanosis, or edema. No obvious deformities. NEUROLOGICAL: Intubated and sedated. RASS -3. Prior to intubation evaluation performed showing no gross focal/sensory deficits. Follows commands in all 4 extremities. Patient was combative/agitated, and required four-point restraint ` Assessment and Plan - Problem List (1) Acute respiratory failure Code(s): J96.00 - Acute respiratory failure, unspecified whether with hypoxia or hypercapnia Status: Acute (2) Status epilepticus Code(s): G40.901 - Epilepsy, unspecified, not intractable, with status epilepticus Status: Acute - Assessment and Plan Plan: NEURO/PSYCH: Status epilepticus Seizure disorder Noncompliance with medication THC use -Currently on propofol/fentanyl drip for sedation/analgesia while intubated -Goal of RASS -2 -Daily sedation vacation -Given levetiracetam 1 g in the ED currently on 1000 mg twice daily, load with fosphenytoin 500 milligrams IV 1/currently on 200 mg every 12 hours -check phenytoin level in a.m., 07/07 -neurology consult with Dr. Elio romo. -MRI brain ordered -07/07 EEG [id number] results RESP: Acute [facility] failure [facility] Ventilator bundle Albuterol/ipratropium aerosols every 6 hours with albuterol aerosols every 2 hours as needed dyspnea Spontaneous breathing trials when clinically indicated -Chest x-ray negative for acute findings post intubation. Follow-up chest x-ray in a.m. CV: -Currently on 84 cc an hour. -Not requiring vasopressors and/or antihypertensives GI: Hypoalbuminemia -N.p.o. Dietary consult for tube feeds -Pantoprazole for GI prophylaxis. Docusate sodium/senna 1 tablet twice daily for bowel regimen Renal/FEN/: -Monitor renal function closely. Straight catheterization as needed. -Monitor creatinine after adequate hydration ID: -No Antibiotics at this time -Blood urine and sputum cultures if indicated only HEME: -Monitor CBC, coags and follow trends ENDO: -Electrolyte replacement per protocol -Sliding scale insulin if needed PROPH: -Bilateral lower extremity SCDs. Heparin/pantoprazole LINES: -Utilize peripheral IVs, central line if needed Level 3 follow-up Code Status: Full Discussed Condition With: No family at bedside. Discussed with CLINICAL MENTAL HEALTH COUNSELOR at bedside (1) Acute respiratory failure Qualifiers: Respiratory failure complication: unspecified whether with hypoxia or hypercapnia Qualified Code(s): J96.00 - Acute respiratory failure, unspecified whether with hypoxia or hypercapnia
--- NOTE | 2018-07-07 10:28 | P.DIET ---
Nutritional Evaluation Type of nutrition evaluation: initial Nutrition consult regarding: Tube Feeding Nutrition screening: MDC (TF'ing) Screening comments: 07/07/18 MDC for TF'ing Objective - Diagnosis status epilepticus - Objective Body Mass Index: 22.4 % IBW: 93 (IBW = 172lb) Body Weight Used for Calculations: Actual (73kg) Energy Needs - Lower Range (kCal/kg): 25 Energy Needs - Upper Range (kCal/kg): 30 Lower Limit kCal/kg (kCals): 1,825 Upper Limit kCal/kg (kCals): 2,190 Lower Limit Protein Factor (Grams per Kg): 1.1 Upper Limit Protein Factor (Grams per Kg): 1.3 Lower Protein Needs (Protein): 80 Upper Protein Needs (Protein): 95 Dietitian Reviewed in Medical Record: Curent medications, Intake & Output, Labs , Medical history Diet Order: NPO, TF'ing Objective Comments: PMH: Epilepsia, TBI Meds: insulin, versed, propofol Labs: POC 118 119 Assessment Assessment: Pt currently at nutritional risk r/t need for TF'ing as nutritional support. Pt is intubated, sedated w/ versed/propofol, [facility] MDC for TF'ing received, RD to recommend Jevity 1.5 @ 60mL/hr to provide 2160kcal, 92g of protein,a nd 1094mL of free water. Plan to initiate TF w/ trickle feeds of 10mL/ hr, advance TF as tolerated. Monitor TF tolerance when TF is initiated. Propofol provides additional kcal (1.1kcal/mL) while running. Wt changes noted from last hospitalization, CBW = 73kg (was 86.2kg in 01/23/[address]). Labs reviewed, dietitian following. Recommendations: 1. RD to recommend Jevity 1.5 @ 60mL/hr 2. Plan to initiate TF w/ trickle feeds of 10mL/hr, advance TF as tolerated 3. Monitor TF tolerance when TF is initiated 4. Propofol provides additional kcal (1.1kcal/mL) while running Dietitian to Monitor: Lab values, Glucose level, Intake & Output, Tube feeding tolerance, Weight change, PO Intake, Medical course
[2018-07-07] MEDS: Heparin - SQ 10,000 UNITS/ML Vial SQ SCH ×2 (12:30→21:56)
[2018-07-07] MEDS: levETIRAcetam 1000mg/100mL Inj 100 ML IV.SIG SCH ×2 (12:30→21:57)
--- NOTE | 2018-07-07 14:32 | ECG ---
Date Performed: 07/06/2018 Time Performed: 19:41:26 PTAGE: 32 years EKG: SINUS TACHYCARDIA ABNORMAL RHYTHM ECG PREVIOUS TRACING : 02/01/2018 14.21 Since the previous tracing, no significant change noted DOCTOR: Aristeo Fink Interpretating Date/Time 07/07/2018 14:27:16
[2018-07-07] MEDS: Sod Chloride 0.9% Inj 1,000 ML IV.CONT SCH (14:50)
--- NOTE | 2018-07-07 16:06 | P.CONNEU ---
History of Present Illness Service: Neurology Primary Care Provider: No Primary Care Physician Chief Complaint: Status epilepticus History of Present Illness: 32-year-old male admitted for status epilepticus. Apparently is having recurrent seizure activity. Is not compliant on Dilantin. Apparently this cannabis. Patient is intubated on propofol Versed unable to get any history from the patient medical chart reviewed. [place] Dilantin level 5 in the ER. Urine drug screen positive for benzos, cannabinoids. Review of Systems unobtainable due to endotracheal tube, unobtainable due to mental status [facility] - History History Provided By: Medical Record - Medical History Medical History: Medical History (Last Reviewed 07/07/18 @ 08:31 by Sami Shah) Epilepsia TBI (traumatic brain injury) - Surgical History Surgical History: Surgical History (Last Reviewed 07/07/18 @ 08:31 by Sami Shah) Surgical history unknown - Family History Family History: Family History (Last Updated 07/06/18 @ 22:06 by Brown Koehler MD) Other Family history non-contributory - Tobacco History Second Hand Smoke Exposure: Yes Tobacco Use In Past 30 Days: Yes Smoking Status: Smoker, status unknown Tobacco Type: Cigarettes - Alcohol History How Often Do You Have a Drink Containing Alcohol: Never - Substance Use History Substance History: Unable to Obtain - Immunization History Tetanus Immunization: Unable to Assess Hx Influenza Vaccine This Season: Unable to Assess Medications and Allergies Active Medications: Active Medications Acetaminophen (Tylenol) 650 mg PO Q6H PRN PRN Reason: PAIN 1-10 AND/OR FEVER >101F Al Hydroxide/Mg Hydroxide (Milk Of Magnismael Liq) 30 ml PO Q12H PRN PRN Reason: Mild Constipation Albuterol (Albuterol Neb (Prn)) 2.5 mg NEB Q2HR NEB PRN PRN Reason: DYSPNEA Albuterol (Duoneb Neb (Asim)) 1 ampul NEB Q6HR NEB [facility] Last Admin: 07/07/18 15:05 Dose: 1 ampul Artificial Tears (Tears Naturale Opth Drops) 1 drop EACH EYE Q8H [facility] Last Admin: 07/07/18 15:00 Dose: 1 drop Bisacodyl (Dulcolax Supp) 10 mg RECTAL DAILY PRN PRN Reason: SEVERE CONSITIPATION Chlorhexidine Gluconate (Chlorhexidine 2% Cloth) 3 pack TOPICAL DAILY@0400 [facility] Stop: 07/12/18 03:59 Last Admin: 07/07/18 04:16 Dose: 3 pack Chlorhexidine Gluconate (Chlorhexidine 2% Cloth) 3 pack TOPICAL DAILY@0400 PRN PRN Reason: Extra cloth needed Stop: 07/12/18 03:59 Chlorhexidine Gluconate (Peridex 0.12% Oral Kit) 15 ml OROPHARYNG BID@0800, 2000 [facility] Last Admin: 07/07/18 08:30 Dose: 15 ml Dextrose (D50w Vial) 50 ml IV.PUSH UNSCH PRN PRN Reason: PER HYPOGLYCEMIA PROTOCOL Glucagon (Glucagon Inj) 1 mg OTHER PRN PRN PRN Reason: for Hypoglycemia Protocol Heparin Sodium (Porcine) (Heparin Inj) 5,000 units SQ Q12H [facility] Last Admin: 07/07/18 12:30 Dose: 5,000 units Midazolam HCl (Versed Inj) 100 mg in 100 mls @ 2 mls/hr IV.CONT TITRATE PRN; Protocol PRN Reason: See protocol Last Titration: 07/07/18 11:47 Dose: 9 mg/hr, 9 mls/hr Sodium Chloride (Ns Inj) 1,000 mls @ 84 mls/hr IV.CONT .[id number] [facility] Last Admin: 07/07/18 14:50 Dose: 84 mls/hr Propofol (Diprivan 1000 Mg/100 Ml Inj) 1,000 mg in 100 mls @ 2.381 mls/hr IV.CONT TITRATE PRN; Protocol PRN Reason: Per Protocol Last Admin: 07/07/18 12:36 Dose: 40 mcg/kg/min, 19.05 mls/hr Fosphenytoin Sodium 200 mgpe/ (Sodium Chloride) 54 mls @ 216 mls/hr IV.SIG Q12HR [facility] Last Infusion: 07/07/18 08:45 Dose: Infused Levetiracetam (Keppra 1000 Mg/100 Ml Premix) 100 mls @ 400 mls/hr IV.SIG Q12H [facility] Last Infusion: 07/07/18 12:45 Dose: Infused Magnesium Sulfate 4 gm/ Sodium (Chloride) 100 mls @ 50 mls/hr IV.SIG UNSCH PRN PRN Reason: For Magnesium 0.9 - 1.1 mg/dL Potassium Chloride (Kcl 40 Meq Premix Inj) 40 meq in 100 mls @ 25 mls/hr IV.SIG Q2H PRN PRN Reason: For Potassium 2.8 - 3.2 mEq/L Potassium Chloride (Kcl 20 Meq Premix Inj) 20 meq in 100 mls @ 50 mls/hr IV.SIG Q2H PRN PRN Reason: For Potassium 3.3 - 3.5 mEq/L Potassium Chloride (Kcl 40 Meq Premix Inj) 40 meq in 100 mls @ 25 mls/hr IV.SIG UNSCH PRN PRN Reason: For Potassium 3.3 - 3.5 mEq/L Potassium Chloride (Kcl 20 Meq Premix Inj) 20 meq in 100 mls @ 50 mls/hr IV.SIG Q2H PRN PRN Reason: For Potassium 2.8 - 3.2 mEq/L Potassium Phosphate 30 mmol/ (Sodium Chloride) 260 mls @ 42 mls/hr IV.SIG UNSCH PRN PRN Reason: SEE LABEL COMMENTS Sodium Phosphate 30 mmol/ (Sodium Chloride) 260 mls @ 42 mls/hr IV.SIG UNSCH PRN PRN Reason: For Phosphorus < 2.5 mg/dL Magnesium Sulfate 2 gm/ Sodium (Chloride) 100 mls @ 50 mls/hr IV.SIG UNSCH PRN PRN Reason: For Magnesium 1.2 - 1.6 mg/dL Insulin Aspart (Novolog Insulin Correctional Sugar Inj) 0 unit SQ Q6HR ASIM; Protocol Last Admin: 07/07/18 12:21 Dose: Not Given Lactulose (Lactulose Liq) 30 ml PO DAILY PRN PRN Reason: SEVERE CONSITIPATION Magnesium Oxide (Mag-Ox) 800 mg PO UNSCH PRN PRN Reason: For Magnesium 1.2 - 1.6 mg/dL Miscellaneous Medication () 1 each OROPHARYNG 0000,0400,1200,1600 [facility] Last Admin: 07/07/18 15:01 Dose: 1 each Ondansetron HCl (Zofran Inj) 4 mg IV.PUSH Q6H PRN PRN Reason: NAUSEA OR VOMITING Last Admin: 07/06/18 20:05 Dose: 4 mg Pantoprazole Sodium (Protonix Inj) 40 mg IV.PUSH Q24H [facility] Last Admin: 07/06/18 23:37 Dose: 40 mg Potassium Chloride (Kcl Liq) 40 meq PO UNSCH PRN PRN Reason: Potassium level 3.3-3.5 mEq/L Potassium Chloride (Kcl Liq) 40 meq PO UNSCH PRN PRN Reason: POTASSIUM LESS THAN 3.5 Potassium Phosphate (K-Phos Original) 2,000 mg PO Q4H PRN PRN Reason: Phosphorus Less Than 2.5 mg/dL Potassium Phosphate (K-Phos Original) 2,000 mg PO UNSCH PRN PRN Reason: SEE LABEL COMMENTS Senna/Docusate Sodium (Cynthia-Colace) 1 tab PO BID [facility] Last Admin: 07/07/18 08:31 Dose: 1 tab Sennosides (Senokot) 17.2 mg PO Q12H PRN PRN Reason: Moderate Constipation Sodium Chloride (Ns Flush) 2 ml IV.FLUSH PRN PRN PRN Reason: FLUSH AFTER USING IV ACCESS Sodium Chloride (Ns Flush) 2 ml IV.FLUSH BID [facility] Last Admin: 07/07/18 08:31 Dose: 2 ml Sodium Chloride (Ns Flush) 2 ml IV.FLUSH PRN PRN PRN Reason: FLUSH AFTER USING IV ACCESS Allergies Allergy/AdvReac Type Severity Reaction Status Date / Time No Allergy Information Allergy Verified 04/13/18 14:13 Available Home Medications Medication Instructions Recorded Confirmed Type phenytoin sodium extended 500 mg PO BID 02/19/18 07/06/18 History Exam Vital signs: Vital Signs 07/06/18 19:34 07/06/18 19:53 07/06/18 20:00 Temperature 97.8 F Pulse Rate 108 H 94 H Respiratory Rate 18 18 Blood Pressure 131/80 143/81 H Pulse Oximetry 96 98 98 07/06/18 20:49 07/06/18 21:00 07/06/18 21:40 Temperature 98.1 F Pulse Rate 115 H 110 H 99 H Respiratory Rate 24 22 20 Blood Pressure 187/78 H 136/87 127/70 Pulse Oximetry 100 99 99 07/06/18 22:00 07/06/18 22:27 07/06/18 22:43 Temperature Pulse Rate 114 H Respiratory Rate 18 22 Blood Pressure 137/70 Pulse Oximetry 99 100 98 07/06/18 22:44 07/06/18 22:45 07/06/18 22:51 Temperature 98.3 F Pulse Rate 95 H 98 H Respiratory Rate 23 18 20 Blood Pressure 128/60 116/57 L Pulse Oximetry 98 99 100 07/06/18 23:00 07/06/18 23:01 07/06/18 23:14 Temperature 99.4 F Pulse Rate 115 H 113 H 96 H Respiratory Rate 19 16 Blood Pressure 130/62 130/62 Pulse Oximetry 100 99 07/07/18 00:00 07/07/18 01:00 07/07/18 02:00 Temperature 98.7 F Pulse Rate 88 90 87 Respiratory Rate 25 H 16 16 Blood Pressure 130/62 103/59 L 114/68 Pulse Oximetry 99 98 99 07/07/18 02:53 07/07/18 03:00 07/07/18 04:00 Temperature 100.3 F H Pulse Rate 99 H 101 H 100 H Respiratory Rate 16 16 17 Blood Pressure 131/77 131/68 Pulse Oximetry 98 98 07/07/18 04:03 07/07/18 05:00 07/07/18 06:00 Temperature Pulse Rate 98 H 96 H Respiratory Rate 16 0 L 16 Blood Pressure 101/57 L 103/56 L Pulse Oximetry 98 97 97 07/07/18 07:00 07/07/18 08:00 07/07/18 08:50 Temperature 98.6 F Pulse Rate 93 H 92 H Respiratory Rate 17 16 Blood Pressure 115/61 108/68 Pulse Oximetry 97 98 99 07/07/18 09:00 07/07/18 10:00 07/07/18 11:00 Temperature Pulse Rate 90 84 80 Respiratory Rate 16 16 16 Blood Pressure 104/60 96/54 L 96/53 L Pulse Oximetry 100 07/07/18 11:02 07/07/18 12:00 07/07/18 15:05 Temperature 98.3 F Pulse Rate 71 70 Respiratory Rate 16 16 16 Blood Pressure 100/61 Pulse Oximetry 98 99 99 Intake & Output 07/06/18 07/07/18 07/07/18 18:59 06:59 18:59 Intake Total 1820 / 1820 1455.2 / 1455.2 Output Total 550 / 550 Balance 1270 / 1270 1455.2 / 1455.2 Weight 73 kg Intake: IV 570 / 570 1455.2 / 1455.2 Versed Inj 100 mg In 100 ml @ 2 100 / 100 100.0 / 100.0 MG/HR 2 mls/hr IV.CONT TITRATE PRN Rx#:[id number] Diprivan 1000 mg/100 ml Inj 1, 200 / 200 201.2 / 201.2 000 mg In 100 ml @ 5 MCG/KG/MIN 2.381 mls/hr IV.CONT TITRATE PRN Rx#:[id number] NS Inj 1,000 ML @ 84 mls/hr IV. 1000 / 1000 CONT .[id number] [facility] Rx#:[id number] Cerebyx Inj 200 MGPE In NS Inj 54 / 54 50 ML @ 216 mls/hr IV.SIG Q12HR [facility] Rx#:[id number] Cerebyx Inj 1,000 MGPE In NS 70 / 70 Inj 50 ML @ 280 mls/hr IV.SIG ONCE ONE Rx#:[id number] Keppra 1000 mg/100 mL Premix 200 / 200 100 / 100 100 ML @ 400 mls/hr IV.SIG Q12H [facility] Rx#:[id number] Oral 0 / 0 Other 1250 / 1250 Output: Urine 150 / 150 Urine Amount (Catheter) 350 / 350 Indwelling Urethral Catheter 350 / 350 Gastric Drainage 50 / 50 Orogastric Tube 50 / 50 Other: Other Intake Source Saline Solution # Bowel Movements 0 Weight On Admission 72 kg Narrative: Intubated on Versed, propofol, state, no gaze deviation sluggish reactive pupils , limited movement of any extremity plantarflex no involuntary movements noted Results - Labs CBC & Chem 7: 07/07/18 06:18 07/07/18 06:18 Labs: Laboratory Results - last 24 hr 07/06/18 07/06/18 07/06/18 19:38 19:50 19:50 WBC 10.7 RBC 4.51 Hgb 13.7 Hct 40.3 MCV 89.2 MCH 30.5 MCHC 34.1 RDW 13.5 Plt Count 306 MPV 6.8 L Neut % (Auto) 73.2 H Lymph % (Auto) 20.8 Spencer % (Auto) 4.5 Eos % (Auto) 1.2 Baso % (Auto) 0.3 Neut # (Auto) 7.9 H Lymph # (Auto) 2.2 Spencer # (Auto) 0.5 Eos # (Auto) 0.1 Baso # (Auto) 0.0 WBC Differential . Differential Comment Auto diff final PT INR APTT Puncture Site Patient Temperature O2 Saturation ABG pH ABG pCO2 ABG pO2 ABG HCO3 ABG O2 Content ABG Base Excess ABG Methemoglobin Javier Test Hemoglobin Carboxyhemoglobin O2 Delivery Device Vent Setting Inspired O2 Critical Value Sodium 142 Potassium 3.8 Chloride 106 Carbon Dioxide 27.6 Anion Gap 8 BUN 16 Creatinine 1.00 Estimated GFR 86 L POC Glucose 118 H Random Glucose 105 Calcium 8.4 L Phosphorus 4.1 Magnesium 2.4 Total Bilirubin 0.2 Direct Bilirubin Indirect Bilirubin AST 15 ALT 25 Alkaline Phosphatase 96 Ammonia Total Creatine Kinase Troponin I Total Protein 7.4 Albumin 3.7 TSH Nasal Screen MRSA (PCR) Urine Opiates Screen Ur Barbiturates Screen Phenytoin 5.0 L Ur Amphetamines Screen U Benzodiazepines Scrn Urine Cocaine Screen U Cannabinoids Screen 07/06/18 07/06/18 07/06/18 19:50 19:50 21:45 WBC RBC Hgb Hct MCV MCH MCHC RDW Plt Count MPV Neut % (Auto) Lymph % (Auto) Spencer % (Auto) Eos % (Auto) Baso % (Auto) Neut # (Auto) Lymph # (Auto) Spencer # (Auto) Eos # (Auto) Baso # (Auto) WBC Differential Differential Comment PT INR APTT Puncture Site Patient Temperature O2 Saturation ABG pH ABG pCO2 ABG pO2 ABG HCO3 ABG O2 Content ABG Base Excess ABG Methemoglobin Javier Test Hemoglobin Carboxyhemoglobin O2 Delivery Device Vent Setting Inspired O2 Critical Value Sodium Potassium Chloride Carbon Dioxide Anion Gap BUN Creatinine Estimated GFR POC Glucose Random Glucose Calcium Phosphorus Magnesium Total Bilirubin 0.2 Direct Bilirubin 0.1 Indirect Bilirubin 0.1 AST 16 ALT 23 Alkaline Phosphatase 94 Ammonia 19 Total Creatine Kinase 95 Troponin I Less than 0.02 L Total Protein 7.4 Albumin 3.7 TSH 9.610 H Nasal Screen MRSA (PCR) Urine Opiates Screen Ur Barbiturates Screen Phenytoin Ur Amphetamines Screen U Benzodiazepines Scrn Urine Cocaine Screen U Cannabinoids Screen 07/06/18 07/06/18 07/06/18 22:09 22:55 23:30 WBC RBC Hgb Hct MCV MCH MCHC RDW Plt Count MPV Neut % (Auto) Lymph % (Auto) Spencer % (Auto) Eos % (Auto) Baso % (Auto) Neut # (Auto) Lymph # (Auto) Spencer # (Auto) Eos # (Auto) Baso # (Auto) WBC Differential Differential Comment PT INR APTT Puncture Site Right radial Patient Temperature 98.6 O2 Saturation 98 ABG pH 7.39 ABG pCO2 49 H ABG pO2 536 H ABG HCO3 29 H ABG O2 Content 19.2 ABG Base Excess 4.1 H ABG Methemoglobin 0.8 Javier Test Present Hemoglobin 13.0 Carboxyhemoglobin 1.7 O2 Delivery Device Ventilator Vent Setting Prvc/16/550/1.1/+8 Inspired O2 100 Critical Value No Sodium Potassium Chloride Carbon Dioxide Anion Gap BUN Creatinine Estimated GFR POC Glucose Random Glucose Calcium Phosphorus Magnesium Total Bilirubin Direct Bilirubin Indirect Bilirubin AST ALT Alkaline Phosphatase Ammonia Total Creatine Kinase Troponin I Total Protein Albumin TSH Nasal Screen MRSA (PCR) Not detected Urine Opiates Screen Neg Ur Barbiturates Screen Neg Phenytoin Ur Amphetamines Screen Neg U Benzodiazepines Scrn Pos H Urine Cocaine Screen Neg U Cannabinoids Screen Pos H 07/07/18 07/07/18 07/07/18 00:46 06:18 06:18 WBC 10.8 RBC 4.28 L Hgb 12.9 L Hct 37.8 L MCV 88.3 MCH 30.1 MCHC 34.1 RDW 13.6 Plt Count 262 MPV 6.5 L Neut % (Auto) 76.4 H Lymph % (Auto) 19.2 Spencer % (Auto) 3.6 Eos % (Auto) 0.6 Baso % (Auto) 0.2 Neut # (Auto) 8.3 H Lymph # (Auto) 2.1 Spencer # (Auto) 0.4 Eos # (Auto) 0.1 Baso # (Auto) 0.0 WBC Differential . Differential Comment Auto diff final PT 10.7 INR 1.1 APTT 25.9 Puncture Site Patient Temperature O2 Saturation ABG pH ABG pCO2 ABG pO2 ABG HCO3 ABG O2 Content ABG Base Excess ABG Methemoglobin Javier Test Hemoglobin Carboxyhemoglobin O2 Delivery Device Vent Setting Inspired O2 Critical Value Sodium Potassium Chloride Carbon Dioxide Anion Gap BUN Creatinine Estimated GFR POC Glucose 114 H Random Glucose Calcium Phosphorus Magnesium Total Bilirubin Direct Bilirubin Indirect Bilirubin AST ALT Alkaline Phosphatase Ammonia Total Creatine Kinase Troponin I Total Protein Albumin TSH Nasal Screen MRSA (PCR) Urine Opiates Screen Ur Barbiturates Screen Phenytoin Ur Amphetamines Screen U Benzodiazepines Scrn Urine Cocaine Screen U Cannabinoids Screen 07/07/18 07/07/18 07/07/18 06:18 06:18 06:23 WBC RBC Hgb Hct MCV MCH MCHC RDW Plt Count MPV Neut % (Auto) Lymph % (Auto) Spencer % (Auto) Eos % (Auto) Baso % (Auto) Neut # (Auto) Lymph # (Auto) Spencer # (Auto) Eos # (Auto) Baso # (Auto) WBC Differential Differential Comment PT INR APTT Puncture Site Patient Temperature O2 Saturation ABG pH ABG pCO2 ABG pO2 ABG HCO3 ABG O2 Content ABG Base Excess ABG Methemoglobin Javier Test Hemoglobin Carboxyhemoglobin O2 Delivery Device Vent Setting Inspired O2 Critical Value Sodium 144 Potassium 3.7 Chloride 109 H Carbon Dioxide 30.1 Anion Gap 5 BUN 15 Creatinine 0.88 Estimated GFR Greater than 89 POC Glucose 119 H Random Glucose 114 H Calcium 7.7 L Phosphorus 3.9 Magnesium 2.3 Total Bilirubin 0.3 Direct Bilirubin Indirect Bilirubin AST 15 ALT 19 Alkaline Phosphatase 79 Ammonia 37 H Total Creatine Kinase Troponin I Less than 0.02 L Total Protein 6.1 L D Albumin 3.1 L D TSH Nasal Screen MRSA (PCR) Urine Opiates Screen Ur Barbiturates Screen Phenytoin 12.4 Ur Amphetamines Screen U Benzodiazepines Scrn Urine Cocaine Screen U Cannabinoids Screen 07/07/18 12:17 WBC RBC Hgb Hct MCV MCH MCHC RDW Plt Count MPV Neut % (Auto) Lymph % (Auto) Spencer % (Auto) Eos % (Auto) Baso % (Auto) Neut # (Auto) Lymph # (Auto) Spencer # (Auto) Eos # (Auto) Baso # (Auto) WBC Differential Differential Comment PT INR APTT Puncture Site Patient Temperature O2 Saturation ABG pH ABG pCO2 ABG pO2 ABG HCO3 ABG O2 Content ABG Base Excess ABG Methemoglobin Javier Test Hemoglobin Carboxyhemoglobin O2 Delivery Device Vent Setting Inspired O2 Critical Value Sodium Potassium Chloride Carbon Dioxide Anion Gap BUN Creatinine Estimated GFR POC Glucose 103 Random Glucose Calcium Phosphorus Magnesium Total Bilirubin Direct Bilirubin Indirect Bilirubin AST ALT Alkaline Phosphatase Ammonia Total Creatine Kinase Troponin I Total Protein Albumin TSH Nasal Screen MRSA (PCR) Urine Opiates Screen Ur Barbiturates Screen Phenytoin Ur Amphetamines Screen U Benzodiazepines Scrn Urine Cocaine Screen U Cannabinoids Screen - Imaging Impressions Head CT 07/06/18 19:39 CONCLUSION: 1. Negative CT Head non contrast. . . Chest X-Ray 07/06/18 20:25 CONCLUSION: ET tube as above. Chest X-Ray 07/06/18 21:00 CONCLUSION: Endotracheal tube and nasogastric tube in the. No focal infiltrate. Review/Management - Diagnosis (1) Seizure Code(s): R56.9 - Unspecified convulsions Status: Acute Current Visit: No (2) Status epilepticus Code(s): G40.901 - Epilepsy, unspecified, not intractable, with status epilepticus Status: Acute Current Visit: Yes (3) Acute respiratory failure Code(s): J96.00 - Acute respiratory failure, unspecified whether with hypoxia or hypercapnia Status: Acute Current Visit: Yes - Review/Management Plan: Previous breakthrough seizure 01/2018. MRI brain scan felt secondary to previous traumatic injury. CT brain stable. Sodium magnesium in range. calcium slightly low. Glucose greater than 100 on admit. Recommendation IV Keppra Dilantin Follow-up EEG; no active seizures would DC the Versed Hopefully should be able to stop the propofol and look at extubation tomorrow. Dilantin level 12.4 at present Compliance unfortunately an issue. Discussed with nurse No driving, operating any heavy machinery or dangerous machinery, swimming alone for at least 6 months of being seizure, spell free. (3) Acute respiratory failure Qualifiers: Respiratory failure complication: unspecified whether with hypoxia or hypercapnia Qualified Code(s): J96.00 - Acute respiratory failure, unspecified whether with hypoxia or hypercapnia
--- NOTE | 2018-07-07 21:47 | MR ---
EXAM DATE: 07/07/2018 9:35 PM EST AGE/SEX: 32 years / Male INDICATIONS: Seizures. CLINICAL DATA: This is the patient's initial encounter. Patient reports that signs and symptoms have been present for 2 days and indicates a pain score of Nonresponsive. MEDICAL/SURGICAL HISTORY: Seizures. None. COMPARISON: [facility] [place], [place] HEAD W & W/O CONTRAST, 02/02/2018. [facility] [place], [place] HEAD W/O CONTRAST, 02/01/2018. . TECHNIQUE: Multiplanar, multisequence examination of the brain was performed without contrast. FINDINGS: Cerebrum: Area of high FLAIR abnormality is seen involving the subinsular cortex on the right and med ial right temporal lobe, this is unchanged. Susceptibility artifact also again seen. The ventricles a re normal for age. No evidence of midline shift, mass lesion, hemorrhage or acute infarction. No ex traaxial fluid collections are seen. The pituitary gland and suprasellar cistern are normal in confi guration. White Matter: No significant signal abnormalities are seen in the white matter. Posterior Fossa: The cerebellum and brainstem are intact. The 4th ventricle is midline. The cerebel lopontine angle is unremarkable. The cerebellar tonsils are normal in position. Diffusion Imaging: No focal areas of restricted diffusion are seen. No evidence of acute infarction . Extracranial: The visualized portions of the orbits are unremarkable. Ethmoid sinus disease. CONCLUSION: 1. Area of high FLAIR abnormality involving the subinsular cortex and medial right temporal lobe cou ld be old chronic ischemic change. This is unchanged but could be a source for seizure. 2. No acute intracranial abnormality Electronically signed by: Jm Ruiz MD Board Certified Radiologist 07/07/2018 9:46 PM EST
[2018-07-07] MEDS: Pantoprazole Inj 40 MG Vial IV.PUSH SCH (21:56)
[2018-07-08] MEDS: Midazolam 100 MG/100 ML Inj 100 MG/100 ML BAG IV.CONT PRN (01:54)
[2018-07-08] MEDS: Sod Chloride 0.9% Inj 1,000 ML IV.CONT SCH ×3 (03:54→23:11)
[2018-07-08] MEDS: Propofol 1000 mg/100 ml Inj 1,000 MG/100 ML BOTTLE IV.CONT PRN (03:55)
[2018-07-08] MEDS: Chlorhexidine Gluconate 2% 1 Pack (2 Cloths) TOPICAL SCH (03:56)
[2018-07-08] MEDS: Oral Hygiene Kit OROPHARYNG SCH ×3 (03:56→16:27)
[2018-07-08 04:22] LABS: ABG Base Excess 1.9 mmol/L (-2-2); ABG PCO2 45 mmHg (38-42); ABG PO2 164 mmHG (61-120)
[2018-07-08] MEDS: Insulin NovoLOG Aspart Correctional Sugar Inj SQ SCH ×3 (05:41→18:21)
[2018-07-08] MEDS: Artificial Tears Opth Drops 15 ML Bottle EACH EYE SCH ×3 (05:42→21:17)
--- NOTE | 2018-07-08 05:52 | XR ---
EXAM DATE: 07/08/2018 5:38 AM EST AGE/SEX: 32 years / Male INDICATIONS: Respiratory failure. CLINICAL DATA: This is the patient's subsequent encounter. Patient reports that signs and symptoms h ave been present for 3 days and indicates a pain score of Nonresponsive. MEDICAL/SURGICAL HISTORY: . Traumatic brain injury. Epilepsia. Non-responsive. COMPARISON: C, CHEST 1V SINGLE AP, 07/06/2018. . FINDINGS: A single AP view of the chest demonstrates the lungs to be symmetrically aerated without evidence of mass, infiltrate or effusion. The cardiomediastinal contours are unremarkable. Osseous structures a re intact. Life-support tubes are stable in position with the endotracheal tube appropriately positio keyana above the sil and the nasogastric tube curled in the proximal stomach. CONCLUSION: 1. Stable position of life-support tubes. 2. Lungs remain clear. Electronically signed by: Elio Fair MD Board Certified Radiologist 07/08/2018 5:50 AM EST
[2018-07-08 06:01] LABS: Anion Gap 8 meq/L (5-15); Blood Urea Nitrogen 14 mg/dL (7-18); Calcium 7.8 mg/dL (8.5-10.1); Carbon Dioxide 24.8 meq/L (21.0-32.0); Chloride 111 meq/L (98-107); Glomerular Filtration Rate Greater Than 89 mL/min (>89); Glucose,Random 81 mg/dL (74-106); Magnesium 2.2 mg/dL (1.5-2.5); Phenytoin (Dilantin) 13.2 mcg/mL (10.0-20.0); Phosphorus 3.9 mg/dL (2.5-4.9); Potassium 3.9 meq/L (3.5-5.1)
[2018-07-08 06:05] LABS: Sodium 144 meq/L (136-145)
--- NOTE | 2018-07-08 07:35 | MG ---
cc: Honorio Biggs MD EEG RECORD NUMBER: [id number] INDICATION: Generalized beta, theta and delta frequencies occurring, 10-30 microvolts, spindle type of activity with delta. Limited driving with photic stimulation, rhythmic alpha, tiny sharp transients left frontotemporal region Epoch 117. Single EKG showing sinus rhythm. INTERPRETATION: [id number] encephalopathy with increased spindle activity and generalized slowing, no epileptic activity. Clinical correlation. MD SUNSHINE Estrella/garrett/barron , 06:27 AM , 06:31 AM
[2018-07-08] MEDS: Chlorhexidine 0.12% Oral Kit 15 ML UDC OROPHARYNG SCH ×2 (08:09→19:39)
[2018-07-08] MEDS: Fosphenytoin Inj 200 MGPE in Sodium Chlor 0.9% Inj 50 ML IV.SIG SCH ×2 (08:10→21:16)
[2018-07-08] MEDS: Senna/Docusate Sodium 8.6/50 MG Tablet PO SCH ×2 (08:10→21:17)
--- NOTE | 2018-07-08 08:27 | P.PNNEU ---
Subjective Subjective Comments: No acute events no seizures overnight Active Medications: Active Medications Acetaminophen (Tylenol) 650 mg PO Q6H PRN PRN Reason: PAIN 1-10 AND/OR FEVER >101F Al Hydroxide/Mg Hydroxide (Milk Of Magnismael Liq) 30 ml PO Q12H PRN PRN Reason: Mild Constipation Albuterol (Albuterol Neb (Prn)) 2.5 mg NEB Q2HR NEB PRN PRN Reason: DYSPNEA Albuterol (Duoneb Neb ([facility])) 1 ampul NEB Q6HR NEB [facility] Last Admin: 07/08/18 03:25 Dose: 1 ampul Artificial Tears (Tears Naturale Opth Drops) 1 drop EACH EYE Q8H [facility] Last Admin: 07/08/18 05:42 Dose: 1 drop Bisacodyl (Dulcolax Supp) 10 mg RECTAL DAILY PRN PRN Reason: SEVERE CONSITIPATION Chlorhexidine Gluconate (Chlorhexidine 2% Cloth) 3 pack TOPICAL DAILY@0400 [facility] Stop: 07/12/18 03:59 Last Admin: 07/08/18 03:56 Dose: 3 pack Chlorhexidine Gluconate (Chlorhexidine 2% Cloth) 3 pack TOPICAL DAILY@0400 PRN PRN Reason: Extra cloth needed Stop: 07/12/18 03:59 Chlorhexidine Gluconate (Peridex 0.12% Oral Kit) 15 ml OROPHARYNG BID@0800, 2000 [facility] Last Admin: 07/08/18 08:09 Dose: 15 ml Dextrose (D50w Vial) 50 ml IV.PUSH UNSCH PRN PRN Reason: PER HYPOGLYCEMIA PROTOCOL Glucagon (Glucagon Inj) 1 mg OTHER PRN PRN PRN Reason: for Hypoglycemia Protocol Heparin Sodium (Porcine) (Heparin Inj) 5,000 units SQ Q12H [facility] Last Admin: 07/07/18 21:56 Dose: 5,000 units Midazolam HCl (Versed Inj) 100 mg in 100 mls @ 2 mls/hr IV.CONT TITRATE PRN; Protocol PRN Reason: See protocol Last Admin: 07/08/18 01:54 Dose: 9 mg/hr, 9 mls/hr Sodium Chloride (Ns Inj) 1,000 mls @ 84 mls/hr IV.CONT .[id number] [facility] Last Admin: 07/08/18 03:54 Dose: 84 mls/hr Propofol (Diprivan 1000 Mg/100 Ml Inj) 1,000 mg in 100 mls @ 2.381 mls/hr IV.CONT TITRATE PRN; Protocol PRN Reason: Per Protocol Last Admin: 07/08/18 03:55 Dose: 40 mcg/kg/min, 19.05 mls/hr Fosphenytoin Sodium 200 mgpe/ (Sodium Chloride) 54 mls @ 216 mls/hr IV.SIG Q12HR [facility] Last Admin: 07/08/18 08:10 Dose: 216 mls/hr Levetiracetam (Keppra 1000 Mg/100 Ml Premix) 100 mls @ 400 mls/hr IV.SIG Q12H [facility] Last Infusion: 07/07/18 22:12 Dose: Infused Magnesium Sulfate 4 gm/ Sodium (Chloride) 100 mls @ 50 mls/hr IV.SIG UNSCH PRN PRN Reason: For Magnesium 0.9 - 1.1 mg/dL Potassium Chloride (Kcl 40 Meq Premix Inj) 40 meq in 100 mls @ 25 mls/hr IV.SIG Q2H PRN PRN Reason: For Potassium 2.8 - 3.2 mEq/L Potassium Chloride (Kcl 20 Meq Premix Inj) 20 meq in 100 mls @ 50 mls/hr IV.SIG Q2H PRN PRN Reason: For Potassium 3.3 - 3.5 mEq/L Potassium Chloride (Kcl 40 Meq Premix Inj) 40 meq in 100 mls @ 25 mls/hr IV.SIG UNSCH PRN PRN Reason: For Potassium 3.3 - 3.5 mEq/L Potassium Chloride (Kcl 20 Meq Premix Inj) 20 meq in 100 mls @ 50 mls/hr IV.SIG Q2H PRN PRN Reason: For Potassium 2.8 - 3.2 mEq/L Potassium Phosphate 30 mmol/ (Sodium Chloride) 260 mls @ 42 mls/hr IV.SIG UNSCH PRN PRN Reason: SEE LABEL COMMENTS Sodium Phosphate 30 mmol/ (Sodium Chloride) 260 mls @ 42 mls/hr IV.SIG UNSCH PRN PRN Reason: For Phosphorus < 2.5 mg/dL Magnesium Sulfate 2 gm/ Sodium (Chloride) 100 mls @ 50 mls/hr IV.SIG UNSCH PRN PRN Reason: For Magnesium 1.2 - 1.6 mg/dL Insulin Aspart (Novolog Insulin Correctional Sugar Inj) 0 unit SQ Q6HR [facility]; Protocol Last Admin: 07/08/18 05:41 Dose: Not Given Lactulose (Lactulose Liq) 30 ml PO DAILY PRN PRN Reason: SEVERE CONSITIPATION Magnesium Oxide (Mag-Ox) 800 mg PO UNSCH PRN PRN Reason: For Magnesium 1.2 - 1.6 mg/dL Miscellaneous Medication () 1 each OROPHARYNG 0000,0400,1200,1600 [facility] Last Admin: 07/08/18 03:56 Dose: 1 each Ondansetron HCl (Zofran Inj) 4 mg IV.PUSH Q6H PRN PRN Reason: NAUSEA OR VOMITING Last Admin: 07/06/18 20:05 Dose: 4 mg Pantoprazole Sodium (Protonix Inj) 40 mg IV.PUSH Q24H [facility] Last Admin: 07/07/18 21:56 Dose: 40 mg Potassium Chloride (Kcl Liq) 40 meq PO UNSCH PRN PRN Reason: Potassium level 3.3-3.5 mEq/L Potassium Chloride (Kcl Liq) 40 meq PO UNSCH PRN PRN Reason: POTASSIUM LESS THAN 3.5 Potassium Phosphate (K-Phos Original) 2,000 mg PO Q4H PRN PRN Reason: Phosphorus Less Than 2.5 mg/dL Potassium Phosphate (K-Phos Original) 2,000 mg PO UNSCH PRN PRN Reason: SEE LABEL COMMENTS Senna/Docusate Sodium (Cynthia-Colace) 1 tab PO BID [facility] Last Admin: 07/08/18 08:10 Dose: 1 tab Sennosides (Senokot) 17.2 mg PO Q12H PRN PRN Reason: Moderate Constipation Sodium Chloride (Ns Flush) 2 ml IV.FLUSH PRN PRN PRN Reason: FLUSH AFTER USING IV ACCESS Sodium Chloride (Ns Flush) 2 ml IV.FLUSH BID [facility] Last Admin: 07/08/18 08:12 Dose: 2 ml Sodium Chloride (Ns Flush) 2 ml IV.FLUSH PRN PRN PRN Reason: FLUSH AFTER USING IV ACCESS Allergies/Adverse Reactions: Allergies Allergy/AdvReac Type Severity Reaction Status Date / Time No Allergy Information Allergy Verified 04/13/18 14:13 Available Review of Systems unobtainable due to endotracheal tube, unobtainable due to mental status Physical Exam Vital signs: Vital Signs 07/07/18 08:50 07/07/18 09:00 07/07/18 10:00 Temperature Pulse Rate 90 84 Respiratory Rate 16 16 Blood Pressure 104/60 96/54 L Pulse Oximetry 99 100 07/07/18 11:00 07/07/18 11:02 07/07/18 12:00 Temperature 98.3 F Pulse Rate 80 71 Respiratory Rate 16 16 16 Blood Pressure 96/53 L 100/61 Pulse Oximetry 98 99 07/07/18 13:00 07/07/18 14:00 07/07/18 14:47 Temperature Pulse Rate 74 71 71 Respiratory Rate 16 16 16 Blood Pressure 93/52 L 95/56 L 102/74 Pulse Oximetry 98 98 98 07/07/18 15:00 07/07/18 15:05 07/07/18 16:00 Temperature 98.8 F Pulse Rate 70 70 72 Respiratory Rate 16 16 16 Blood Pressure 97/58 L 109/71 Pulse Oximetry 98 99 98 07/07/18 17:00 07/07/18 18:00 07/07/18 19:00 Temperature Pulse Rate 73 72 66 Respiratory Rate 16 16 16 Blood Pressure 101/60 100/61 114/72 Pulse Oximetry 97 97 100 07/07/18 20:00 07/07/18 20:15 07/07/18 21:30 Temperature 98.6 F Pulse Rate 71 71 60 Respiratory Rate 16 Blood Pressure 107/69 Pulse Oximetry 99 99 07/07/18 21:46 07/07/18 22:00 07/07/18 22:15 Temperature Pulse Rate 68 69 69 Respiratory Rate 16 16 Blood Pressure 117/73 106/63 Pulse Oximetry 97 07/07/18 22:28 07/07/18 22:30 07/07/18 23:00 Temperature Pulse Rate 66 66 70 Respiratory Rate 16 16 16 Blood Pressure 107/69 105/65 Pulse Oximetry 98 98 97 07/07/18 23:30 07/08/18 00:00 07/08/18 00:15 Temperature 97.7 F Pulse Rate 70 66 66 Respiratory Rate 16 16 Blood Pressure 99/63 L 111/71 Pulse Oximetry 97 98 07/08/18 00:30 07/08/18 01:00 07/08/18 01:10 Temperature Pulse Rate 69 69 Respiratory Rate 16 16 16 Blood Pressure 100/63 101/63 Pulse Oximetry 98 98 07/08/18 01:30 07/08/18 02:00 07/08/18 02:15 Temperature Pulse Rate 68 63 63 Respiratory Rate 16 16 Blood Pressure 99/62 L 115/78 Pulse Oximetry 97 97 07/08/18 02:30 07/08/18 03:00 07/08/18 03:25 Temperature Pulse Rate 73 66 68 Respiratory Rate 19 16 16 Blood Pressure 135/89 118/74 Pulse Oximetry 90 L 97 07/08/18 03:30 07/08/18 03:45 07/08/18 04:00 Temperature 97.9 F Pulse Rate 69 68 Respiratory Rate 16 16 16 Blood Pressure 112/68 116/72 Pulse Oximetry 95 98 98 07/08/18 04:15 07/08/18 04:30 07/08/18 05:00 Temperature Pulse Rate 68 70 72 Respiratory Rate 16 16 Blood Pressure 124/79 112/66 Pulse Oximetry 97 98 07/08/18 05:30 07/08/18 06:00 07/08/18 06:15 Temperature Pulse Rate 74 72 71 Respiratory Rate 16 12 Blood Pressure 111/65 112/66 Pulse Oximetry 97 97 07/08/18 06:30 07/08/18 07:00 07/08/18 08:04 Temperature Pulse Rate 72 72 72 Respiratory Rate 16 16 Blood Pressure 111/66 107/63 Pulse Oximetry 97 97 Intake & Output 07/07/18 07/08/18 07/08/18 18:59 06:59 18:59 Intake Total 1997.1997.2 1111 / 1111 Output Total 400 / 400 600 / 600 Balance 1598.2 / 1598.2 511 / 511 Weight 76.5 kg Intake: IV 1997. 1111 / 1111 Versed Inj 100 mg In 100 ml @ 2 226.0 / 226.0 74 / 74 MG/HR 2 mls/hr IV.CONT TITRATE PRN Rx#:[id number] Diprivan 1000 mg/100 ml Inj 1, 301.2 / 301.2 200 / 200 000 mg In 100 ml @ 5 MCG/KG/MIN 2.381 mls/hr IV.CONT TITRATE PRN Rx#:[id number] NS Inj 1,000 ML @ 84 mls/hr IV. 1317 / 1317 683 / 683 CONT .[id number] [facility] Rx#:[id number] Cerebyx Inj 200 MGPE In NS Inj 54 / 54 54 / 54 50 ML @ 216 mls/hr IV.SIG Q12HR [facility] Rx#:[id number] Keppra 1000 mg/100 mL Premix 100 / 100 100 / 100 100 ML @ 400 mls/hr IV.SIG Q12H [facility] Rx#:[id number] Output: Urine Amount (Catheter) 400 / 400 300 / 300 Condom 100 / 100 Indwelling Urethral Catheter 300 / 300 Straight 300 / 300 Gastric Drainage 300 / 300 Orogastric Tube 300 / 300 Other: # Bowel Movements 0 Narrative: Intubated on Versed, propofol, state, no gaze deviation sluggish reactive pupils , limited movement of any extremity plantarflex no involuntary movements noted - Urinary Catheter Management Indwelling Urethral Catheter Cath placed during this visit: yes, but has since been removed by the nurse Reason for continuing: Continue criteria not met Insertion date: 07/06/18 Insertion time: 22:00 Removal date: 07/07/18 Removal time: 08:50 Condom Cath placed during this visit: no Straight Cath placed during this visit: no Objective Laboratory Results - last 24 hr 07/07/18 07/07/18 07/08/18 12:17 23:57 04:09 Puncture Site Right radial Patient Temperature 98.6 O2 Saturation 97 ABG pH 7.39 ABG pCO2 45 H ABG pO2 164 H ABG HCO3 26 ABG O2 Content 16.7 ABG Base Excess 1.9 ABG Methemoglobin 1.7 Javier Test Present Hemoglobin 12.1 Carboxyhemoglobin 0.4 O2 Delivery Device Ventilator Vent Setting Prvc/ac Inspired O2 40 Critical Value No Sodium Potassium Chloride Carbon Dioxide Anion Gap BUN Creatinine Estimated GFR POC Glucose 103 91 Random Glucose Calcium Phosphorus Magnesium Phenytoin 07/08/18 07/08/18 04:31 05:40 Puncture Site Patient Temperature O2 Saturation ABG pH ABG pCO2 ABG pO2 ABG HCO3 ABG O2 Content ABG Base Excess ABG Methemoglobin Javier Test Hemoglobin Carboxyhemoglobin O2 Delivery Device Vent Setting Inspired O2 Critical Value Sodium 144 Potassium 3.9 Chloride 111 H Carbon Dioxide 24.8 Anion Gap 8 BUN 14 Creatinine 0.66 Estimated GFR Greater than 89 POC Glucose 95 Random Glucose 81 Calcium 7.8 L Phosphorus 3.9 Magnesium 2.2 Phenytoin 13.2 Microbiology 07/06/18 12:20 Gram Stain - Final Sputum - Endotracheal Review/Management - Diagnosis (1) Seizure Code(s): R56.9 - Unspecified convulsions Status: Acute Current Visit: No (2) Status epilepticus Code(s): G40.901 - Epilepsy, unspecified, not intractable, with status epilepticus Status: Acute Current Visit: Yes (3) Acute respiratory failure Code(s): J96.00 - Acute respiratory failure, unspecified whether with hypoxia or hypercapnia Status: Acute Current Visit: Yes - Review/Management Plan: Previous breakthrough seizure 01/2018. MRI brain scan felt secondary to previous traumatic injury. CT brain stable. Sodium magnesium in range. calcium slightly low. Glucose greater than 100 on admit. EEG showing mild to moderate encephalopathy spindles no seizure activity 07/08 space Dilantin level 13 Recommendation Continue IV Keppra Dilantin Can DC propofol, Versed and extubate from neurologic standpoint Compliance unfortunately an issue. Discussed with nurse No driving, operating any heavy machinery or dangerous machinery, swimming alone for at least 6 months of being seizure, spell free. (3) Acute respiratory failure Qualifiers: Respiratory failure complication: unspecified whether with hypoxia or hypercapnia Qualified Code(s): J96.00 - Acute respiratory failure, unspecified whether with hypoxia or hypercapnia
--- NOTE | 2018-07-08 09:31 | P.PNCC ---
Subjective Subjective Remarks/Hospital Course: This is a 32-year-old male. Date of admission 07/06/2018. Past medical history includes traumatic brain injury and seizure disorder. Patient presents to [facility] via EMS per records with altered mental status/ seizure. Patient had 2 witnessed seizures at home and in route. Patient received a total of 8 mg of lorazepam in route to [facility] and in the emergency department.. Patient became nauseous and was emergently intubated using 20 mg etomidate and 70 mg rocuronium by the ED physician. Dr. Ballard/ neurology was consulted. Recommended 1 g of levetiracetam and 500 mg of fosphenytoin as phenytoin level was 5.0. Patient is currently on midazolam drip at 10 mg an hour propofol drip at 50 frankie grams per kilogram per minute. Urine tox screen along with MRI brain currently pending. 07/07: The patient remains sedated and intubated on Versed 15 mg/hr and Propofol 50 mcgs/kg/hr infusion, currently at RASS -3. Currently EEG in progress. Subjective 07/08: T-max 100.3. Currently afebrile. Currently midazolam drip at 9 mg on propofol drip at 40 mg/kg/min. Will wean to off. Cleared by neurology. Objective Vital Signs / I&O: Vital Signs 07/07/18 10:00 07/07/18 11:00 07/07/18 11:02 Temperature Pulse Rate 84 80 Respiratory Rate 16 16 16 Blood Pressure 96/54 L 96/53 L Pulse Oximetry 98 07/07/18 12:00 07/07/18 13:00 07/07/18 14:00 Temperature 98.3 F Pulse Rate 71 74 71 Respiratory Rate 16 16 16 Blood Pressure 100/61 93/52 L 95/56 L Pulse Oximetry 99 98 98 07/07/18 14:47 07/07/18 15:00 07/07/18 15:05 Temperature Pulse Rate 71 70 70 Respiratory Rate 16 16 16 Blood Pressure 102/74 97/58 L Pulse Oximetry 98 98 99 07/07/18 16:00 07/07/18 17:00 07/07/18 18:00 Temperature 98.8 F Pulse Rate 72 73 72 Respiratory Rate 16 16 16 Blood Pressure 109/71 101/60 100/61 Pulse Oximetry 98 97 97 07/07/18 19:00 07/07/18 20:00 07/07/18 20:15 Temperature 98.6 F Pulse Rate 66 71 71 Respiratory Rate 16 16 Blood Pressure 114/72 107/69 Pulse Oximetry 100 99 07/07/18 21:30 07/07/18 21:46 07/07/18 22:00 Temperature Pulse Rate 60 68 69 Respiratory Rate 16 16 Blood Pressure 117/73 106/63 Pulse Oximetry 99 97 07/07/18 22:15 07/07/18 22:28 07/07/18 22:30 Temperature Pulse Rate 69 66 66 Respiratory Rate 16 16 Blood Pressure 107/69 Pulse Oximetry 98 98 07/07/18 23:00 07/07/18 23:30 07/08/18 00:00 Temperature 97.7 F Pulse Rate 70 70 66 Respiratory Rate 16 16 16 Blood Pressure 105/65 99/63 L 111/71 Pulse Oximetry 97 97 98 07/08/18 00:15 07/08/18 00:30 07/08/18 01:00 Temperature Pulse Rate 66 69 69 Respiratory Rate 16 16 Blood Pressure 100/63 101/63 Pulse Oximetry 98 98 07/08/18 01:10 07/08/18 01:30 07/08/18 02:00 Temperature Pulse Rate 68 63 Respiratory Rate 16 16 16 Blood Pressure 99/62 L 115/78 Pulse Oximetry 97 97 07/08/18 02:15 07/08/18 02:30 07/08/18 03:00 Temperature Pulse Rate 63 73 66 Respiratory Rate 19 16 Blood Pressure 135/89 118/74 Pulse Oximetry 90 L 97 07/08/18 03:25 07/08/18 03:30 07/08/18 03:45 Temperature Pulse Rate 68 69 Respiratory Rate 16 16 16 Blood Pressure 112/68 Pulse Oximetry 95 98 07/08/18 04:00 07/08/18 04:15 07/08/18 04:30 Temperature 97.9 F Pulse Rate 68 68 70 Respiratory Rate 16 16 Blood Pressure 116/72 124/79 Pulse Oximetry 98 97 07/08/18 05:00 07/08/18 05:30 07/08/18 06:00 Temperature Pulse Rate 72 74 72 Respiratory Rate 16 16 12 Blood Pressure 112/66 111/65 112/66 Pulse Oximetry 98 97 97 07/08/18 06:15 07/08/18 06:30 07/08/18 07:00 Temperature Pulse Rate 71 72 72 Respiratory Rate 16 16 Blood Pressure 111/66 107/63 Pulse Oximetry 97 97 07/08/18 08:04 07/08/18 08:28 07/08/18 08:32 Temperature Pulse Rate 72 69 Respiratory Rate 16 16 Blood Pressure Pulse Oximetry 97 Intake & Output 07/07/18 07/08/18 07/08/18 18:59 06:59 18:59 Intake Total 1997.1997. 1111 / 1111 Output Total 400 / 400 600 / 600 Balance 1598.2 / 1598.2 511 / 511 Weight 76.5 kg Intake: IV 1111 / 1111 Versed Inj 100 mg In 100 ml @ 2 226.0 / 226.0 74 / 74 MG/HR 2 mls/hr IV.CONT TITRATE PRN Rx#:[id number] Diprivan 1000 mg/100 ml Inj 1, 301.2 / 301.2 200 / 200 000 mg In 100 ml @ 5 MCG/KG/MIN 2.381 mls/hr IV.CONT TITRATE PRN Rx#:[id number] NS Inj 1,000 ML @ 84 mls/hr IV. 1317 / 1317 683 / 683 CONT .[id number] [facility] Rx#:[id number] Cerebyx Inj 200 MGPE In NS Inj 54 / 54 54 / 54 50 ML @ 216 mls/hr IV.SIG Q12HR [facility] Rx#:[id number] Keppra 1000 mg/100 mL Premix 100 / 100 100 / 100 100 ML @ 400 mls/hr IV.SIG Q12H [facility] Rx#:[id number] Output: Urine Amount (Catheter) 400 / 400 300 / 300 Condom 100 / 100 Indwelling Urethral Catheter 300 / 300 Straight 300 / 300 Gastric Drainage 300 / 300 Orogastric Tube 300 / 300 Other: # Bowel Movements 0 Result Diagrams: 07/07/18 06:18 07/08/18 04:31 Objective Remarks: GENERAL: Is a well-developed well-nourished male currently intubated and sedated SKIN: Warm and dry. HEAD: Atraumatic. Normocephalic. EYES: Pupils equal and round. No scleral icterus. No injection or drainage. ENT: No nasal bleeding or discharge. Mucous membranes pink and moist. NECK: Trachea midline. No JVD. CARDIOVASCULAR: Normal rate, regular rhythm. RESPIRATORY: No accessory muscle use. Clear to auscultation. Breath sounds equal bilaterally. GASTROINTESTINAL: Abdomen soft, non-tender, nondistended. No guarding. MUSCULOSKELETAL: Extremities without clubbing, cyanosis, or edema. No obvious deformities. NEUROLOGICAL: Intubated and sedated. RASS -3. Prior to intubation evaluation performed showing no gross focal/sensory deficits. Follows commands in all 4 extremities. 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 Currently 13.2 -neurology consult with Dr. Biggs -MRI brain ordered stable right middle lobe subinsular cortex abnormality -07/07 EEG performed revealed no epileptiform activity RESP: Acute respiratory failure -PRVC 16/550/1./ Ventilator bundle Albuterol/ipratropium aerosols every 6 hours with albuterol aerosols every 2 hours as needed dyspnea Spontaneous breathing trials when clinically indicated -Chest x-ray negative for acute findings post intubation. CPAP trials today. CV: -Currently on 84 cc an hour. -Not requiring vasopressors and/or antihypertensives GI: Hypoalbuminemia Elevated ammonia level -N.p.o.. If not extubated start tube feeds with vital 1.5 goal 50 cc an hour Dietary consult for tube feeds -Pantoprazole for GI prophylaxis. Docusate sodium/senna 1 tablet twice daily for bowel regimen Lactulose 30 cc twice daily for elevated ammonia. Recheck in a.m. 07/09 Renal/FEN/: -Monitor renal function closely. Straight catheterization as needed. -Monitor creatinine after adequate hydration ID: -No Antibiotics at this time -Blood urine and sputum cultures if indicated only HEME: Normocytic anemia -Monitor CBC, coags and follow trends ENDO: -Electrolyte replacement per protocol -Sliding scale insulin if needed PROPH: -Bilateral lower extremity SCDs. Heparin/pantoprazole LINES: -Utilize peripheral IVs, central line if needed Level 3 follow-up (1) Acute respiratory failure Qualifiers: Respiratory failure complication: unspecified whether with hypoxia or hypercapnia Qualified Code(s): J96.00 - Acute respiratory failure, unspecified whether with hypoxia or hypercapnia
[2018-07-08 09:52] VITALS: TEMP 98.3
[2018-07-08] MEDS: Heparin - SQ 10,000 UNITS/ML Vial SQ SCH ×2 (10:12→21:17)
[2018-07-08] MEDS: levETIRAcetam 1000mg/100mL Inj 100 ML IV.SIG SCH ×2 (10:13→21:17)
[2018-07-08 11:14] LABS: Baso % (Auto) 0.2 % (0.0-2.0); Eos # (Auto) 0.1 th/mm3 (0.0-0.4); Eos % (Auto) 1.5 % (0.0-4.0); Hematocrit 33.8 % (39.0-51.0); Hemoglobin 11.3 gm/dL (13.0-17.0); Lymph % (Auto) 21.5 % (9.0-44.0); Mean Corpuscular HGB Conc 33.5 % (32.0-36.0); Mean Corpuscular Hemoglobin 30.6 pg (27.0-34.0); Mean Corpuscular Volume 91.3 fL (80.0-100.0); Mean Platelet Volume 7.6 fL (7.0-11.0); Mono # (Auto) 0.6 th/mm3 (0.0-0.9); Mono % (Auto) 6.1 % (0.0-8.0); Neut # (Auto) 6.6 th/mm3 (1.8-7.7); Neut % (Auto) 70.7 % (16.0-70.0); Platelet Count 192 th/mm3 (150-450); Red Blood Count 3.71 mil/mm3 (4.50-5.90); Red Cell Distribution Width 13.9 % (11.6-17.2); White Blood Count 9.3 th/mm3 (4.0-11.0)
[2018-07-08] MEDS: Pantoprazole Inj 40 MG Vial IV.PUSH SCH (21:16)
[2018-07-08 22:13] VITALS: O2SAT 97
[2018-07-09] MEDS: Insulin NovoLOG Aspart Correctional Sugar Inj SQ SCH ×2 (00:26→06:36)
[2018-07-09] MEDS: Oral Hygiene Kit OROPHARYNG SCH ×2 (00:26→06:10)
[2018-07-09] MEDS: Artificial Tears Opth Drops 15 ML Bottle EACH EYE SCH (06:10)
[2018-07-09] MEDS: Chlorhexidine Gluconate 2% 1 Pack (2 Cloths) TOPICAL SCH (06:10)
[2018-07-09] MEDS: Fosphenytoin Inj 200 MGPE in Sodium Chlor 0.9% Inj 50 ML IV.SIG SCH (08:08)
[2018-07-09] MEDS: Senna/Docusate Sodium 8.6/50 MG Tablet PO SCH (08:09)
[2018-07-09] MEDS: Chlorhexidine 0.12% Oral Kit 15 ML UDC OROPHARYNG SCH (08:10)
[2018-07-09] MEDS: levETIRAcetam 1000mg/100mL Inj 100 ML IV.SIG SCH (09:07)
[2018-07-09] MEDS: Heparin - SQ 10,000 UNITS/ML Vial SQ SCH (09:08)
[2018-07-09 09:21] LABS: Baso % (Auto) 0.2 % (0.0-2.0); Eos # (Auto) 0.2 th/mm3 (0.0-0.4); Hemoglobin 12.5 gm/dL (13.0-17.0); Lymph # (Auto) 2.1 th/mm3 (1.0-4.8); Lymph % (Auto) 26.2 % (9.0-44.0); Mean Corpuscular HGB Conc 33.8 % (32.0-36.0); Mean Corpuscular Volume 88.7 fL (80.0-100.0); Mono # (Auto) 0.4 th/mm3 (0.0-0.9); Mono % (Auto) 4.9 % (0.0-8.0); Neut # (Auto) 5.4 th/mm3 (1.8-7.7); Neut % (Auto) 66.7 % (16.0-70.0); Platelet Count 220 th/mm3 (150-450); Red Blood Count 4.17 mil/mm3 (4.50-5.90); Red Cell Distribution Width 13.1 % (11.6-17.2); White Blood Count 8.1 th/mm3 (4.0-11.0)
[2018-07-09 09:28] VITALS: BP 127/76; PULSE 72; RESP 22
--- NOTE | 2018-07-09 09:28 | P.DS ---
DS: Providers Date of admission: 07/06/18 21:18 Primary care physician: No Primary Care Physician Consults: 07/06/18 21:18 Consult to Neurology Routine Consulting Provider: Honorio Biggs Reason for Consultation: status epilepticus Notified:: Service Spoke with:: BILL Date Notified:: 07/06/18 Time Notified:: 22:07 Ordering Provider: GRADY 07/08/18 17:15 Consult to Hospitalist Routine Consulting Provider: Rob Joshi Reason for Consultation: [place] of care in a.m. 07/09. Patient with seizures. Notified:: Service Spoke with:: suzie Date Notified:: 07/08/18 Time Notified:: 17:23 Ordering Provider: MICHAEL Brief History from admission: This is a 32-year-old male. Date of admission 07/06/2018. Past medical history includes traumatic brain injury and seizure disorder. Patient presents to [facility] via EMS per records with altered mental status/seizure. Patient had 2 witnessed seizures at home and in route. Patient received a total of 8 mg of lorazepam in route to [facility] and in the emergency department.. Patient became nauseous and was emergently intubated using 20 mg etomidate and 70 mg rocuronium by the ED physician. Dr. Ballard/neurology was consulted. Recommended 1 g of levetiracetam and 500 mg of fosphenytoin as phenytoin level was 5.0. Patient is currently on midazolam drip at 10 mg an hour propofol drip at 50 frankie grams per kilogram per minute. Urine tox screen along with MRI brain currently pending. DS: Diagnosis Discharge Diagnosis (1) Acute respiratory failure: Status: Acute (2) Status epilepticus: Status: Acute DS: Summary Mr. Beal is a 32 year old male with a history of TBI and seizure disorder who was admitted to the hospital on 07/06/2018 due to altered mental status and seizure. Patient had two witnessed seizures at home and en route. He received lorazepam total 8 mg and he was intubated using 20mg of etomidate and 70mg of rocuronium. Neurology was consulted and recommended 1g of Keppra and 500mg of Fosphenytoin. Patient was maintained in the ICU. He was on midazolam drip at 10mg per hour as well as propofol. These drips were weaned off by 07/08/2018. Patient was extubated. Neurology cleared for discharge. I discussed with neurology who recommended to continue Keppra and Phenytoin PO. Patient was advised not to drive or operate heavy machinery for 6 months. Patient verbalized understanding. On 07/09/2018, patient wanted to go home. I discussed with neurology and subsequently discharged patient home. Acute respiratory failure Seizure disorder status epilepticus Time Spent with Patient Total time spent providing and/or coordinating discharge services: Less than 30 minutes Quality: VTE Deep Vein Thrombosis/Pulmonary Embolism Present on Admission: No Exam Narrative Exam Narrative: GENERAL: Alert, NAD. SKIN: Warm and dry. HEAD: Normocephalic. EYES: No scleral icterus. No injection or drainage. NECK: Supple, trachea midline. No JVD or lymphadenopathy. CARDIOVASCULAR: Regular rate and rhythm without murmurs, gallops, or rubs. RESPIRATORY: Breath sounds equal bilaterally. No accessory muscle use. GASTROINTESTINAL: Abdomen soft, non-tender, nondistended. MUSCULOSKELETAL: No cyanosis, or edema. BACK: Nontender without obvious deformity. No CVA tenderness. Results Labs on day of discharge: Labs from last 24 hours 07/09/18 07/09/18 07/09/18 09:03 09:03 09:03 WBC 8.1 RBC 4.17 L Hgb 12.5 L Hct 37.0 L MCV 88.7 MCH 30.0 MCHC 33.8 RDW 13.1 Plt Count 220 MPV 7.0 Neut % (Auto) 66.7 Lymph % (Auto) 26.2 [place] % (Auto) 4.9 Eos % (Auto) 2.0 Baso % (Auto) 0.2 Neut # (Auto) 5.4 Lymph # (Auto) 2.1 [place] # (Auto) 0.4 Eos # (Auto) 0.2 Baso # (Auto) 0.0 WBC Differential . Differential Comment Auto diff final Hematology Comments Sodium Pending Potassium Pending Chloride Pending Carbon Dioxide Pending Anion Gap Pending BUN Pending Creatinine Pending POC Glucose Random Glucose Pending Calcium Pending Phosphorus Pending Magnesium Pending Total Bilirubin Pending AST Pending ALT Pending Alkaline Phosphatase Pending Ammonia Pending Total Protein Pending Albumin Pending Phenytoin Pending 07/09/18 07/08/18 07/08/18 06:33 12:03 04:31 WBC 9.3 RBC 3.71 L Hgb 11.3 L Hct 33.8 L MCV 91.3 MCH 30.6 MCHC 33.5 RDW 13.9 Plt Count 192 MPV 7.6 Neut % (Auto) 70.7 H Lymph % (Auto) 21.5 [place] % (Auto) 6.1 Eos % (Auto) 1.5 Baso % (Auto) 0.2 Neut # (Auto) 6.6 Lymph # (Auto) 2.0 [place] # (Auto) 0.6 Eos # (Auto) 0.1 Baso # (Auto) 0.0 WBC Differential . Differential Comment Auto diff final Hematology Comments Sodium Potassium Chloride Carbon Dioxide Anion Gap BUN Creatinine POC Glucose 81 88 Random Glucose Calcium Phosphorus Magnesium Total Bilirubin AST ALT Alkaline Phosphatase Ammonia Total Protein Albumin Phenytoin Preliminary micro results at discharge 07/06/18 12:20 Sputum Culture - Preliminary Sputum - Endotracheal Heavy growth normal respiratory lesa at 24 hours Impressions ITS Impressions Head CT 07/06/18 19:39 CONCLUSION: 1. Negative CT Head non contrast. . . Head MRI 07/07/18 00:00 CONCLUSION: 1. Area of high FLAIR abnormality involving the subinsular cortex and medial right temporal lobe could be old chronic ischemic change. This is unchanged but could be a source for seizure. 2. No acute intracranial abnormality Chest X-Ray 07/08/18 04:00 CONCLUSION: 1. Stable position of life-support tubes. 2. Lungs remain clear. Discharge Plan Discharge Disposition Patient Disposition: 01 Discharge Home Discharge Condition Condition: Good Discharge Order Discharge Orders: Discharge Order (Routine); Ordered 07/09/18 Ordered By: Drew Meza Discharge Details Anticipated Discharge Date: 07/09/18 Discharge Comment: Okay to discharge per Neurology. No driving or operating heavy machinery for 6 months. Physicians Team Primary Care Provider: Primary Care Physici,No Attending Provider: Drew Meza Other Providers: Honorio Biggs Rxs /Orders / Referrals /Forms Prescriptions: New phenytoin sodium extended [Dilantin Extended] 100 mg capsule 100 mg PO Q8H Qty: 90 RF: 11 levetiracetam [Keppra] 1,000 mg tablet 1,000 mg PO Q12H 30 Days Qty: 60 RF: 11 Discontinued phenytoin sodium extended 100 mg capsule 500 mg PO BID RF: 0 Referrals: Honorio Biggs MD [Physician] - See Instructions (Follow up within 1-2 weeks. ) Primary Care Akila Menchaca [Primary Care Provider] - See Instructions (Follow up with PCP within 1-2 weeks. ) Discharge Instructions Patient Printed Instructions: Recurrent Seizures in Adults (ED) Post Discharge Care Plan Care Plan Goals: Take medications as prescribed, follow up with primary care doctor. Status ED Status: Left Department Discharge Information Discharge Date/Time: 07/09/18 10:25
[2018-07-09 09:52] LABS: Anion Gap 8 meq/L (5-15); Aspartate Aminotransferase 15 U/L (15-37); Blood Urea Nitrogen 8 mg/dL (7-18); Calcium 8.5 mg/dL (8.5-10.1); Carbon Dioxide 26.6 meq/L (21.0-32.0); Chloride 109 meq/L (98-107); Glomerular Filtration Rate Greater Than 89 mL/min (>89); Glucose,Random 119 mg/dL (74-106); Magnesium 1.9 mg/dL (1.5-2.5); Potassium 3.4 meq/L (3.5-5.1); Sodium 144 meq/L (136-145)
[2018-07-09 10:01] LABS: Alanine Aminotransferase 16 U/L (12-78); Alkaline Phosphatase 82 U/L (45-117); Phosphorus 2.4 mg/dL (2.5-4.9); Total Protein 6.5 g/dL (6.4-8.2)
== END 2018-07-09 10:25 | disposition home or self-care (01) | DRG 208 ==
LOC: NEPE 19:30 → NEDA 21:18 → HIMC 22:35
PROVIDERS: ADMIT Hospitalist; ATTEND Hospitalist
DX: Z87.820 Personal history of traumatic brain injury; Z86.73 Personal history of transient ischemic attack (TIA), and cerebral infarction without residual deficits; Z91.14 Patient's other noncompliance with medication regimen; G93.40 Encephalopathy, unspecified; F12.90 Cannabis use, unspecified, uncomplicated; D64.9 Anemia, unspecified; J96.00 Acute respiratory failure, unspecified whether with hypoxia or hypercapnia; G40.911 Epilepsy, unspecified, intractable, with status epilepticus; F17.210 Nicotine dependence, cigarettes, uncomplicated; E88.09 Other disorders of plasma-protein metabolism, not elsewhere classified
CPT/HCPCS: 31500; 36600; 70450; 70551; 71010; 71045; 80048; 80053; 80076; 80185; 80307; 82140; 82550; 82805; 82948; 82962; 83735; 84100; 84443; 84484; 85025; 85610; 85730; 87070; 87205; 87641; 90765; 90767; 90775; 92610; 93005; 94002; 94003; 94640; 94656; 94657; 94664; 94665; 95819; 96365; 96367; 96375; 97162; 99291; C9113; G0195; J1644; J1953; J2060; J2250; J2405; J2704; J7030; Q2009